=== PATIENT | male | born 1985 | race African-American/Black ===

== ENCOUNTER → 2020-05-13 08:46 | Outpatient (CLI) | payer OTHER, SELFPAY ==
[2020-05-14 09:02] LABS: COVID19 Sendout Not Detected (Not Detect)
== END ==
PROVIDERS: Visit Provider Physician Assistant
DX: Z11.59 Encounter for screening for other viral diseases (principal)
CPT/HCPCS: 87635

== ENCOUNTER 2020-08-04 22:09 | Emergency (ER) | payer SELFPAY ==
[2020-08-04 22:16] VITALS: BP 168/105
[2020-08-04 22:17] VITALS: PULSE 121; RESP 18; O2SAT 99
--- NOTE | 2020-08-04 22:17 | DI.CT.S_ITS ---
PROCEDURE: CT HEAD/BRAIN WO CON INDICATIONS: seizure, with head/face injury TECHNIQUE: Noncontrast 4.5 mm thick angled axial sections acquired from the foramen magnum to the vertex, with coronal and sagittal reformats. For radiation dose reduction, the following was used: automated exposure control, adjustment of mA and/or kV according to patient size. COMPARISON: None. FINDINGS: Image quality: Excellent. CSF spaces: Basal cisterns are patent. No extra-axial fluid collections. Ventricles are normal in size and shape. Brain: No midline shift. No intracranial masses or hemorrhage. Saul-white matter interface is normal. Skull and face: Calvarium and visualized facial bones are intact, without suspicious lesions. Sinuses: Small air-fluid levels noted in the right maxillary sinus and the bilateral sphenoid sinuses. mastoids are clear. IMPRESSION: No acute intracranial disease process. Dictated by: Nichol Alcaraz MD, PhD on 08/05/2020 at 7:24 Approved by: Nichol Alcaraz MD, PhD on 08/05/2020 at 7:26
--- NOTE | 2020-08-04 22:17 | DI.CT.S_ITS ---
PROCEDURE: CT FACIAL BONES WO CON INDICATIONS: seizure with head/facial injury TECHNIQUE: Noncontrast 2.5 mm thick axial images acquired from the mandible through the frontal sinuses, with coronal and sagittal reformatting. For radiation dose reduction, the following was used: automated exposure control, adjustment of mA and/or kV according to patient size. COMPARISON: None. FINDINGS: Image quality: Excellent. Bones and teeth: Orbital miguel are intact. Sinus miguel show no fracture or deformity. Minimally displaced right nasal bone fracture. Nasal septum is intact. Chronic appearing avulsion fracture of the superior margin of the right coronoid process of the mandible. Zygomatic arches are intact. Pterygoid plates are intact. Visualized portions of the skull base and auditory canals are intact. Sinuses: Mucosal thickening noted in the maxillary sinuses bilaterally. Small air-fluid levels noted in the right maxillary sinus and the sphenoid sinuses bilaterally. 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 Mastoid air cells are aerated. Soft tissues: No edema, masses, or fluid collections. No enlarged lymph nodes. No soft tissue lacerations or debris. Vascular: Visualized vascular structures appear normal in the absence of contrast. Bony vascular foramina and canals are intact. IMPRESSION: 1. Minimally displaced right nasal bone fracture. 2. Chronic appearing avulsion fracture of the right coronary process of the mandible. Dictated by: Nichol Alcaraz MD, PhD on 08/05/2020 at 7:45 Approved by: Nichol Alcaraz MD, PhD on 08/05/2020 at 7:49
--- NOTE | 2020-08-04 22:17 | DI.RAD.S_ITS ---
PROCEDURE: XR SHOULDER RT MIN 2V INDICATIONS: seizure, shoulder pain, history of dislocation TECHNIQUE: 3 views of the shoulder were acquired. COMPARISON: None. FINDINGS: Bones: No fractures or dislocations. No suspicious bony lesions. Visualized ribs appear intact. Soft tissues: No suspicious soft tissue calcifications. IMPRESSION: No fracture. No osseous lesion. If symptoms and/or clinical suspicion for pathology persists, further assessment with repeat radiographs (7-10 days) or advanced imaging (e.g. CT, MRI or bone scan) should be considered. Dictated by: Nichol Alcaraz MD, PhD on 08/05/2020 at 8:38 Approved by: Nichol Alcaraz MD, PhD on 08/05/2020 at 8:41
[2020-08-04 22:22] VITALS: BP 168/105; PULSE 110; RESP 16; TEMP 36.6; O2SAT 99; BMI 25.0
--- NOTE | 2020-08-04 22:24 | ED_ITS ---
HPI - Seizure General Chief Complaint: Seizure Stated Complaint: rt Aldo shoulder dislocation Time Seen by Provider: 08/04/20 22:12 Source: patient and EMS Mode of arrival: EMS Limitations: no limitations History of Present Illness HPI Narrative: 35-year-old male daily smoker with remote history of seizures presents by EMS for evaluation of a seizure just prior to arrival. As a consequence of the seizure he fell and struck his face and head on the ground. He has had a mild postictal phase but is largely back at baseline by his arrival. He denies any recent surgeries in quite a few years. He states that he used to take medications but has not and about 15 years or more. He denies any recent illness. He has had no runny nose, sore throat nor fever, chills, nausea or vomiting. He also is having some right shoulder pain after the seizure and is concerned that he may have dislocated it again. He suffered a laceration on his lip in tetanus is not current. MD complaint: seizure Onset (ago): minute(s) Description of Episode: tonic-clonic movement -: second(s) Witnessed: yes - by bystander Trauma: Yes Seizure History: known seizure disorder Place: work Possible Precipitating Event: none Associated symptoms: denies other symptoms Treatments prior to arrival: none Related Data Allergies Allergy/AdvReac Type Severity Reaction Status Date / Time No Known Drug Allergies Allergy Verified 08/05/20 02:03 Review of Systems Constitutional Constitutional: Denies chills, Denies fatigue, Denies fever(s), Denies frequent falls, Denies lethargy and Denies weakness Eyes Eyes: Denies change in vision, Denies eye discharge, Denies irritation and Denies loss of vision ENT Ears, Nose, Mouth, and Throat: Denies change in voice, Denies dizziness, Denies neck pain, Denies sore throat and Denies throat swelling Cardiovascular Cardiovascular: Denies chest pain, Denies irregular heart rhythm, Denies lightheadedness, Denies palpitations, Denies dyspnea, Denies dyspnea on exertion and Denies orthopnea Respiratory Respiratory: Denies cough, Denies dyspnea, Denies dyspnea on exertion and Denies wheezing Gastrointestinal Gastrointestinal: Denies abdominal pain, Denies change in bowel habits, Denies diarrhea, Denies nausea and Denies vomiting Musculoskeletal Musculoskeletal: Denies neck pain and Denies numbness Integumentary/Breasts Skin/Breast: Denies pruritus, Denies erythema, Denies rash and Denies wounds Neurologic Neurologic: Denies behavioral changes, Denies confusion, Denies dizziness, Denies frequent falls, Denies loss of vision, Denies numbness and Denies weakness Psychiatric Psychiatric: Denies anxiety, Denies behavioral changes, Denies confusion, Denies depression, Denies homicidal ideation and Denies suicidal ideation Endocrine Endocrine: Denies fatigue, Denies flushing and Denies palpitations Hematologic/Lymphatic Hematologic/Lymphatic: Denies easy bruising Allergic/Immunologic Allergic/Immunologic: Denies urticaria, Denies throat swelling and Denies wheezing Patient History Social History Smoking Status: Current every day smoker Exam Narrative Exam Narrative: GENERAL: [35] year old patient appears stated age. Well- nourished, well-developed patient, in mild distress. HEAD: Multiple superficial abrasions on forehead and R brow. EYES: Pupils equal round and reactive. Extraocular motions intact. No scleral icterus. No injection or drainage. ENT: Nose without bleeding, though fresh clots in L nare. no nasal septal hematoma, purulent drainage. R TMJ tender to palp. No intraoral bleeding or suspiscion of open fx. Throat without erythema, tonsillar hypertrophy or exudate. Airway patent. Small, 0.3cm laceration of upper lip may be through and through. NECK: Trachea midline. Non tender CARDIOVASCULAR: Regular rate and rhythm without murmurs, gallops, or rubs. RESPIRATORY: Clear to auscultation. Breath sounds equal bilaterally. No wheezes, rales, or rhonchi. GASTROINTESTINAL: Abdomen soft, non-tender, nondistended. EXTREMITIES: No edema or joint tenderness. BACK: Nontender without deformity or crepitance. No flank tenderness. NEURO: AOx3. SKIN: No rash or erythema of visible areas Initial Vital Signs Initial Vital Signs: Vital Signs Blood Pressure 168/105 H 08/04/20 22:16 Course Orders Ordered: ED Orders 08/04/20 22:17 CT facial bones wo con Stat CT head/brain wo con Stat XR shoulder RT min 2V Stat 08/04/20 23:20 Basic Metabolic Panel Stat Complete Blood Count AUTO DIFF Stat Prolactin Stat 08/05/20 00:03 Ethanol (ETOH) Stat 08/05/20 00:32 Lactate (Lactic Acid) Stat Troponin & CK Cardiac Panel Stat 08/05/20 00:35 COVID19 Stat 08/05/20 01:05 Urine Drug Screen, Rapid Stat 08/05/20 02:10 Lactate (Lactic Acid) Stat Discontinued Medications Diphtheria/Tetanus/Acell Pertussis (Tet,Diph,Pertuss(Acell),Vac/Pf 0.5 Ml Syringe) 0.5 ml IM .ONCE ONE Stop: 08/04/20 22:18 Last Admin: 08/04/20 22:45 Dose: 0.5 ml Documented by: PARISH Sodium Chloride (Normal Saline 0.9%) 1,000 mls @ 1,000 mls/hr IV BOLUS ONE Stop: 08/04/20 23:16 Last Infusion: 08/05/20 01:12 Dose: 0 mls/hr Documented by: Admin: 08/04/20 22:45 Dose: 1,000 mls/hr Documented by: PARISH Levetiracetam 1,000 mg/ Sodium (Chloride) 110 mls @ 440 mls/hr IV NOW ONE Stop: 08/04/20 23:54 Last Infusion: 08/05/20 00:19 Dose: 0 mls/hr Documented by: Admin: 08/05/20 00:00 Dose: 440 mls/hr Documented by: PARISH Thiamine HCl 200 mg/ Sodium (Chloride) 52 mls @ 208 mls/hr IV NOW ONE Stop: 08/05/20 00:33 Last Infusion: 08/05/20 01:11 Dose: 0 mls/hr Documented by: Admin: 08/05/20 00:45 Dose: 208 mls/hr Documented by: PARISH Lorazepam (Lorazepam 2 Mg/Ml Inj) 1 mg IM NOW ONE Stop: 08/04/20 23:54 Last Admin: 08/05/20 00:09 Dose: Not Given Documented by: PARISH Phenobarbital (Phenobarbital 65 Mg/Ml Vial) 260 mg IV NOW ONE Stop: 08/05/20 00:33 Last Admin: 08/05/20 00:46 Dose: 260 mg Documented by: PARISH Reevaluation(s) Reevaluation #1: patient started becoming confused and sleepy and just had another seizure. 1 minute, tonic clonic aborted by Ativan. Bryanppra ordered. COVID ordered. Patient has had multiple seizures and will need hospitalization for evaluation and treatment. Time: 23:59 Reevaluation #2: patient girlfriend now at the bedside and states he does have a history of cocaine use as recently about a week ago, but doesn't use other drugs. Furthermore, she talked to some of his friends who state he might have had a seizure about 6 months ago and was acting weird about a week ago and had an abrasion on his chin. She also states that despite his comments earlier that he does drink heavily, including a few shots, a few beers nightly. She states he's never gone through withdrawals and was drinking tonight as well just before his seizure. Patient now admits to drinking heavily and frequently and reports a history of withdrawals and seizures as a consequence of withdrawals. Time: 00:30 Consultations Consultation #1: [place] [place] [facility] of R coronoid / Mandibular notch fx. Not displaced. This is not surgical, recommends soft diet, pain control, follow up, requests chart be faxed to his office so he can follow up tomorrow Time: 23:42 Consultation #2: call to hospitalist. Given unclear history / etiology of seizure we cannot keep patient here as we do not have neurology call to [facility]. No inpatient Neuro call to [place], no beds. call to [place], no beds. call to [facility], no beds. call to , paperwork requested. Neuro ([place]) contacted and happy with the plan and treatments, requests we contact hospitalist. Dr. Silva (hospitalist ) happy to accept. Co-worker Ashley Castillo can be point of contact [phone] Vital Signs Vital signs: Vital Signs - 8 hr 08/04/20 22:16 08/04/20 22:17 08/04/20 22:22 Temperature 97.9 F Pulse Rate 121 H 110 H Respiratory Rate 18 16 Blood Pressure 168/105 H 168/105 H Pulse Oximetry 99 99 08/04/20 22:44 08/04/20 23:00 08/04/20 23:30 Temperature Pulse Rate 91 H 86 77 Respiratory Rate 33 H 19 Blood Pressure 166/104 H Pulse Oximetry 98 96 08/05/20 00:00 08/05/20 00:16 08/05/20 00:30 Temperature Pulse Rate 99 H 100 H 109 H Respiratory Rate 50 H 29 H 34 H Blood Pressure 153/100 H Pulse Oximetry 96 08/05/20 00:31 08/05/20 01:00 08/05/20 01:11 Temperature Pulse Rate 107 H 92 H 89 Respiratory Rate 32 H 21 18 Blood Pressure 155/89 H 181/119 H 154/97 H Pulse Oximetry 97 08/05/20 01:30 Temperature Pulse Rate 93 H Respiratory Rate 21 Blood Pressure 162/105 H Pulse Oximetry 97 MDM - Seizure Lab Data Attestation: I reviewed the patient's lab results. Lab results narrative: initial lactate is recognized as critically elevated, but expected after seizure. Sepsis considered, but thought very unlikely. It should be noted that patient had another 60-90second grand mal seizure prior to the reflexed lactate redraw Result diagrams: 08/04/20 23:20 08/04/20 23:20 Labs: Lab Results 08/04/20 08/04/20 08/04/20 Range/Units 23:20 23:20 23:20 WBC 7.4 (4.5-11.0) X10^3/uL RBC 4.09 L (4.5-5.9) X10^6/uL Hgb 13.4 L (13.5-17.5) g/dL Hct 40.2 L (41-53) % MCV 98.4 (80-100) fL MCH 32.8 (26-34) PG MCHC 33.3 (30-36) % RDW 15.0 H (11.6-14.8) % Plt Count 122 L (150-400) X10^3/uL Neut % (Auto) 81.4 H (50-75) % Lymph % (Auto) 8.3 L (25-40) % [place] % (Auto) 7.6 (3-14) % Eos % (Auto) 0.5 L (2-4) % Baso % (Auto) 2.2 H (0-2) % Neut # (Auto) 6000 (9573-1427) /uL Lymph # (Auto) 600 L (0900-9613) /uL [place] # (Auto) 600 (0-900) /uL Eos # (Auto) 0 (0-450) /uL Baso # (Auto) 200 H (0-100) /uL Plt Morphology Comment * RBC Morphology Normal morphology Sodium 135 L (137-145) mmol/L Potassium 3.8 (3.4-5.1) mmol/L Chloride 104 (98-107) mmol/L Carbon Dioxide 14 L (22-32) mmol/L BUN 9 (9-20) mg/dL Creatinine 0.87 (0.66-1.25) mg/dL Estimated GFR > 60.0 (>60) mL/min BUN/Creatinine Ratio 10.3 (6-22) Glucose 147 H (70-100) mg/dL Lactate (0.7-2.1) mmol/L Calcium 9.9 (8.4-10.2) mg/dL Total Creatine Kinase (55-170) U/L CK-MB (CK-2) (<2.37) ng/mL CK-MB (CK-2) Rel Index (1.5-5.0) % Troponin I (0.01-0.034) ng/mL Prolactin 49.4 H (3.7-17.9) ng/mL U Opiates 300ng/mL cut (Negative) Ur Oxycodone Screen (Negative) Urine Methadone Screen (Negative) Ur Barbiturates Screen (Negative) U Tricyclic Antidepress (Negative) Ur Phencyclidine Scrn (Negative) Ur Amphetamines Screen (Negative) U Methamphetamines Scrn (Negative) Ur MDMA Scrn (Ecstasy) (Negative) U Benzodiazepines Scrn (Negative) Urine Cocaine Screen (Negative) U Marijuana (THC) Screen (Negative) Ethyl Alcohol ( - 10) mg/dL COVID-19 PCR (Negative) 08/04/20 08/04/20 08/04/20 Range/Units 23:20 23:20 23:20 WBC (4.5-11.0) X10^3/uL RBC (4.5-5.9) X10^6/uL Hgb (13.5-17.5) g/dL Hct (41-53) % MCV (80-100) fL MCH (26-34) PG MCHC (30-36) % RDW (11.6-14.8) % Plt Count (150-400) X10^3/uL Neut % (Auto) (50-75) % Lymph % (Auto) (25-40) % [place] % (Auto) (3-14) % Eos % (Auto) (2-4) % Baso % (Auto) (0-2) % Neut # (Auto) (1578-2549) /uL Lymph # (Auto) (3382-5306) /uL [place] # (Auto) (0-900) /uL Eos # (Auto) (0-450) /uL Baso # (Auto) (0-100) /uL Plt Morphology Comment RBC Morphology Sodium (137-145) mmol/L Potassium (3.4-5.1) mmol/L Chloride (98-107) mmol/L Carbon Dioxide (22-32) mmol/L BUN (9-20) mg/dL Creatinine (0.66-1.25) mg/dL Estimated GFR (>60) mL/min BUN/Creatinine Ratio (6-22) Glucose (70-100) mg/dL Lactate 8.1 H* (0.7-2.1) mmol/L Calcium (8.4-10.2) mg/dL Total Creatine Kinase 332 H (55-170) U/L CK-MB (CK-2) 2.47 H (<2.37) ng/mL CK-MB (CK-2) Rel Index 0.7 L (1.5-5.0) % Troponin I < 0.012 (0.01-0.034) ng/mL Prolactin (3.7-17.9) ng/mL U Opiates 300ng/mL cut (Negative) Ur Oxycodone Screen (Negative) Urine Methadone Screen (Negative) Ur Barbiturates Screen (Negative) U Tricyclic Antidepress (Negative) Ur Phencyclidine Scrn (Negative) Ur Amphetamines Screen (Negative) U Methamphetamines Scrn (Negative) Ur MDMA Scrn (Ecstasy) (Negative) U Benzodiazepines Scrn (Negative) Urine Cocaine Screen (Negative) U Marijuana (THC) Screen (Negative) Ethyl Alcohol 26 H ( - 10) mg/dL COVID-19 PCR (Negative) 08/05/20 08/05/20 Range/Units 00:35 01:05 WBC (4.5-11.0) X10^3/uL RBC (4.5-5.9) X10^6/uL Hgb (13.5-17.5) g/dL Hct (41-53) % MCV (80-100) fL MCH (26-34) PG MCHC (30-36) % RDW (11.6-14.8) % Plt Count (150-400) X10^3/uL Neut % (Auto) (50-75) % Lymph % (Auto) (25-40) % [place] % (Auto) (3-14) % Eos % (Auto) (2-4) % Baso % (Auto) (0-2) % Neut # (Auto) (8477-5250) /uL Lymph # (Auto) (1226-2798) /uL [place] # (Auto) (0-900) /uL Eos # (Auto) (0-450) /uL Baso # (Auto) (0-100) /uL Plt Morphology Comment RBC Morphology Sodium (137-145) mmol/L Potassium (3.4-5.1) mmol/L Chloride (98-107) mmol/L Carbon Dioxide (22-32) mmol/L BUN (9-20) mg/dL Creatinine (0.66-1.25) mg/dL Estimated GFR (>60) mL/min BUN/Creatinine Ratio (6-22) Glucose (70-100) mg/dL Lactate (0.7-2.1) mmol/L Calcium (8.4-10.2) mg/dL Total Creatine Kinase (55-170) U/L CK-MB (CK-2) (<2.37) ng/mL CK-MB (CK-2) Rel Index (1.5-5.0) % Troponin I (0.01-0.034) ng/mL Prolactin (3.7-17.9) ng/mL U Opiates 300ng/mL cut Negative (Negative) Ur Oxycodone Screen Negative (Negative) Urine Methadone Screen Negative (Negative) Ur Barbiturates Screen Negative (Negative) U Tricyclic Antidepress Negative (Negative) Ur Phencyclidine Scrn Negative (Negative) Ur Amphetamines Screen Negative (Negative) U Methamphetamines Scrn Negative (Negative) Ur MDMA Scrn (Ecstasy) Negative (Negative) U Benzodiazepines Scrn Negative (Negative) Urine Cocaine Screen Negative (Negative) U Marijuana (THC) Screen Positive H (Negative) Ethyl Alcohol ( - 10) mg/dL COVID-19 PCR Negative (Negative) Point of Care Testing Glucose POC [address] scan - head: Radiologist's Impression: No acute intracranial abnormality CT Facial Bones: Radiologist's Impression: Fracture involving the coronoid process and mandibular notch of the right aspect of the mandible, suspected to be chronic Right nasal bone fracture suspected to be chronic Shoulder: Radiologist's Impression: No fracture or dislocation MDM Narrative Medical decision making narrative: 35M with history of seizures has change in seizure pattern. He reports last seizure was when he was 10 and takes no medications. Further story suggests maybe he's had a few in the past week. He drinks daily and was drinking when this happened by serum etoh is only 0.026. Withdrawal seizure certainly considered, however, he was at baseline between seizures and was without confusion, resting tremor, agitation, tachycardia or other typical signs of alcohol withdrawal. Lab abnormalities are within expected changes post seizure. Patient and friend aware of and in agreement with plan Critical Care Time Critical Care Time Critical Care Time: Yes Total Critical Care Time: 35 Attestation: The high probability of a clinically significant, sudden or life threatening deterioration of the [Neuro] system(s) required my full and direct attention, intervention and personal management. The aggregate critical care time was [35] minutes. This time is in addition to time spent performing reported procedures but includes the following: [x] Data Review and interpretation [xx] Patient assessment and monitoring of vital signs [x] Documentation [x] Medication orders and management Discharge Plan Departure Patient Disposition: [facility] Clinical Impression: Seizure Coronoid process of mandible closed fracture Qualifiers: Encounter type: initial encounter Laterality: right Qualified Code(s): S02.631A - Fracture of coronoid process of right mandible, initial encounter for closed fracture Referrals: Miscellaneous,DoctorMD [Primary Care Provider] -
[2020-08-04 22:44] VITALS: PULSE 91; O2SAT 98
[2020-08-04] MEDS: TET,DIPH,PERTUSS(ACELL),VAC/PF 0.5 ML SYRINGE IM (22:45)
[2020-08-04] MEDS: SODIUM CHLORIDE 0.9% 1,000 ML 1000 ML IV (22:45)
[2020-08-04 23:00] VITALS: PULSE 86; RESP 33
[2020-08-04 23:30] VITALS: BP 166/104; PULSE 77; RESP 19; O2SAT 96
[2020-08-04 23:33] LABS: Basophils Absolute Auto 200 /uL (0-100); Basophils Percent Auto 2.2 % (0-2); Eosinophils Absolute Auto 0 /uL (0-450); Eosinophils Percent Auto 0.5 % (2-4); Hematocrit 40.2 % (41-53); Hemoglobin 13.4 g/dL (13.5-17.5); Lymphocytes Absolute Auto 600 /uL (1100-4500); Lymphocytes Percent Auto 8.3 % (25-40); Mean Corpuscular HGB Conc 33.3 % (30-36); Mean Corpuscular Hemoglobin 32.8 PG (26-34); Mean Corpuscular Volume 98.4 fL (80-100); Monocytes Absolute Auto 600 /uL (0-900); Monocytes Percent Auto 7.6 % (3-14); Neutrophils Absolute Auto 6000 /uL (1500-7000); Neutrophils Percent Auto 81.4 % (50-75); Platelet Count 122 X10^3/uL (150-400); Red Blood Cell Count 4.09 X10^6/uL (4.5-5.9); White Blood Cell Count 7.4 X10^3/uL (4.5-11.0)
[2020-08-04 23:34] LABS: Add Manual Diff / Slide Review SLIDE REVIEW
[2020-08-04 23:36] LABS: BUN Creatinine Ratio 10.3 (6-22); Blood Urea Nitrogen 9 mg/dL (9-20); Calcium 9.9 mg/dL (8.4-10.2); Carbon Dioxide 14 mmol/L (22-32); Chloride 104 mmol/L (98-107); Estimated Glomerular Filt Rate > 60.0 mL/min (>60); Glucose 147 mg/dL (70-100); HEMOLYSIS 24 (0-50); Potassium 3.8 mmol/L (3.4-5.1); Sodium 135 mmol/L (137-145)
[2020-08-04] MEDS: LORazepam 2 MG/ML INJ (23:50)
[2020-08-04 23:52] LABS: Prolactin 49.4 ng/mL (3.7-17.9)
[2020-08-05] VITALS (10 sets, daily range): BP systolic 152–181; BP diastolic 89–119; PULSE 89–119; RESP 18–50; O2SAT 82–98
[2020-08-05] MEDS: levETIRAcetam 1,000 MG in SODIUM CHLORIDE 0.9% 100 ML 440 ML IV
[2020-08-05 00:02] LABS: RBC Morphology Normal Morphology
[2020-08-05 00:15] LABS: Ethanol (ETOH) 26 mg/dL
--- NOTE | 2020-08-05 00:19 | PC.NURSE ---
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 0.3cm LAC to upper lip, multiple abrasions to nose and philtrum area. 20G iV R hand. Pt to and from CT. non displaced old fracture to R septum and cornoid process of R mandible. Arrived awake and alert, BS 125, HR 110. Per pt's girlfriend pt is a heavy drinker and has intermittently tried to quit. 2348: Pt noted to yell loudly and start to have seizure like activity. witnessed and lasted approx 60 sec. ripped out IV in R hand, 2mg ativan given IM in R deltoid. 18G placed R AC, and 20G placed L wrist. incontinent of bladder. Keppra given per OCT. HR 124 BP 153/100. 0041: thiamine infusing. pt given phenobarbital per OCT. awaiting acceptance at .
[2020-08-05] MEDS: THIAMINE 200 MG in SODIUM CHLORIDE 0.9% 50 ML 208 ML IV (00:45)
[2020-08-05 00:46] LABS: Creatine Kinase 332 U/L (55-170)
[2020-08-05] MEDS: PHENobarbital 65 MG/ML VIAL 260 MG IV (00:46)
[2020-08-05 00:49] LABS: Lactate (Lactic Acid) 8.1 mmol/L (0.7-2.1)
[2020-08-05 00:59] LABS: Troponin I < 0.012 ng/mL (0.01-0.034)
[2020-08-05 01:01] LABS: COVID19 -Nasal RAPID Negative (Negative)
[2020-08-05 01:01] LABS: CKMB % Relative Index 0.7 % (1.5-5.0); Creatine Kinase MB 2.47 ng/mL (<2.37)
[2020-08-05 01:21] LABS: UR Morphine/Opiate cutoff 300 Negative (Negative); Ur Creatinine 20 (Normal); Ur Specific Gravity 1.025 (Normal); Urine Amphetamines Negative (Negative); Urine Barbiturates Negative (Negative); Urine Benzodiazepines Negative (Negative); Urine Cocaine Negative (Negative); Urine MDMA Negative (Negative); Urine Methadone Negative (Negative); Urine Methamphetamines Negative (Negative); Urine Oxycodone Negative (Negative); Urine Phencyclidine Negative (Negative); Urine Tetrahydrocannabinol Positive (Negative); Urine Tricyclic Antidepressant Negative (Negative); Urine pH 5 (Normal)
[2020-08-05 02:28] LABS: Lactate (Lactic Acid) 2.3 mmol/L (0.7-2.1)
[2020-08-05 02:35] LABS: Reflexed Lactate in 2 Hours Y
[2020-08-05] MEDS: LORazepam 2 MG/ML INJ IV (02:52)
[2020-08-05] MEDS: diazePAM 10 MG/2 ML SYRINGE 5 MG IV (02:59)
[2020-08-05 04:15] LABS: Reflexed Lactate in 2 Hours Y
--- NOTE | 2020-08-05 11:36 | CM.DPNOTE ---
Addendum entered by EDWARD Zamora 08/05/20 11:37: [facility] P# [phone] Original Note: TC from geriatric social work professor at [facility] asking for available contact information for patient; gave numbers for Ashley Castillo and Alex Cramer, contacts listed on chart. JW
== END 2020-08-05 02:38 | disposition short-term general hospital (02) ==
PROVIDERS: Emergency Provider Emergency Medicine
DX: R56.9 Unspecified convulsions (principal); R56.1 Post traumatic seizures; S02.631A Fracture of coronoid process of right mandible, initial encounter for closed fracture; S00.81XA Abrasion of other part of head, initial encounter; W19.XXXA Unspecified fall, initial encounter; Z20.828 Contact with and (suspected) exposure to other viral communicable diseases; Z87.898 Personal history of other specified conditions
CPT/HCPCS: 36415; 70450; 70486; 73030; 80048; 80305; 80320; 82550; 82553; 83605; 84146; 84484; 85025; 87635; 90471; 96361; 96374; 96375; 99284; 90715; J1953; J2060; J2560; J3360

== ENCOUNTER 2020-09-26 08:37 | Emergency (ER) | payer OTHER, MEDICAID, SELFPAY ==
[2020-09-26] VITALS (10 sets, daily range): BP systolic 143–160; BP diastolic 98–109; PULSE 66–117; RESP 16–32; TEMP 36.7; O2SAT 92–100; BMI 25.7
--- NOTE | 2020-09-26 08:40 | DI.CT.S_ITS ---
PROCEDURE: CT HEAD/BRAIN WO CON INDICATIONS: seizure, head injury, alcohol TECHNIQUE: Noncontrast 4.5 mm thick angled axial sections acquired from the foramen magnum to the vertex, with coronal and sagittal reformats. For radiation dose reduction, the following was used: automated exposure control, adjustment of mA and/or kV according to patient size. COMPARISON: [facility], CT, CT HEAD/BRAIN WO CON, 08/04/2020, 22:25. FINDINGS: Image quality: Motion CSF spaces: Basal cisterns are patent. No extra-axial fluid collections. Ventricles are normal in size and shape. Brain: No midline shift. No intracranial masses or hemorrhage. Saul-white matter interface is normal. Skull and face: Calvarium and visualized facial bones are intact, without suspicious lesions. Sinuses: Visualized sinuses and mastoids are clear. IMPRESSION: Limited study demonstrating no definite, intracranial abnormality. If it would be helpful for clinical management decision making, please consider a dedicated brain MRI for further evaluation (assuming that there is no contraindication and the patient is able to hold still for the MRI examination). Dictated by: Santy Alonzo M.D. on 09/26/2020 at 8:09 Approved by: Santy Alonzo M.D. on 09/26/2020 at 8:11
--- NOTE | 2020-09-26 08:50 | ED_ITS ---
HPI - Seizure General Chief Complaint: Seizure Stated Complaint: Seizure Time Seen by Provider: 09/26/20 08:39 Source: patient and EMS Mode of arrival: EMS Limitations: no limitations History of Present Illness HPI Narrative: 35M daily smoker and heavy drinker with known history of seizure relating to alcohol withdrawal presents with EMS for evaluation of a seizure this morning. His roommate heard a thud and found him to be having a full body seizure for about 1 minute and EMS was called. He suffered a laceration above his right eye and has some left shoulder pain. When EMS arrived he was a bit combative and had a slightly depressed GCS of 14 but by arrival was in his normal alert setting. He was found to be surrounded by alcohol and other marijuana paraphernalia. He states maybe he has been drinking less than normal but isn't terribly forthcoming with his story. He denies other symptoms such as chest pain or shortness of breath. He denies any neck or back pain. He suffered a laceration above his right eye but has no trouble with vision or speech. His left shoulder hurts with motion and improves with rest. He denies any numbness, tingling or weakness. He states he's had no significant change in alcohol consumption, but does admit that he hasn't taken his Keppra in about 2 weeks. Medics state blood glucose is in the 170s complaint: seizure Onset (ago): minute(s) Witnessed: yes - by bystander Trauma: Yes Seizure History: known seizure disorder and history of withdrawal seizures Place: home Possible Precipitating Event: alcohol withdrawal Associated symptoms: denies other symptoms Treatments prior to arrival: none Related Data Previous Rx's Medication Instructions Recorded amlodipine 5 mg PO DAILY #30 tab 09/26/20 levetiracetam [Keppra] 1,000 mg PO Q12H 30 Days #120 tab 09/26/20 lisinopril 10 mg PO DAILY #30 tab 09/26/20 Allergies Allergy/AdvReac Type Severity Reaction Status Date / Time No Known Drug Allergies Allergy Verified 09/26/20 11:03 Review of Systems Constitutional Constitutional: Denies chills, Denies fatigue, Denies fever(s), Denies frequent falls, Denies lethargy and Denies weakness Eyes Eyes: Denies change in vision, Denies eye discharge, Denies irritation and Denies loss of vision ENT Ears, Nose, Mouth, and Throat: Denies change in voice, Denies dizziness, Denies neck pain, Denies sore throat and Denies throat swelling Cardiovascular Cardiovascular: Denies chest pain, Denies irregular heart rhythm, Denies lightheadedness, Denies palpitations, Denies dyspnea, Denies dyspnea on exertion and Denies orthopnea Respiratory Respiratory: Denies cough, Denies dyspnea, Denies dyspnea on exertion and Denies wheezing Gastrointestinal Gastrointestinal: Denies abdominal pain, Denies change in bowel habits, Denies diarrhea, Denies nausea and Denies vomiting Musculoskeletal Musculoskeletal: Denies neck pain and Denies numbness Integumentary/Breasts Skin/Breast: Denies pruritus, Denies erythema, Denies rash and Reports wounds Neurologic Neurologic: Denies behavioral changes, Denies confusion, Denies dizziness, Denies frequent falls, Denies loss of vision, Denies numbness, Reports seizure- like activity and Denies weakness Psychiatric Psychiatric: Denies anxiety, Denies behavioral changes, Denies confusion, Denies depression, Denies homicidal ideation and Denies suicidal ideation Endocrine Endocrine: Denies fatigue, Denies flushing and Denies palpitations Hematologic/Lymphatic Hematologic/Lymphatic: Denies easy bruising Allergic/Immunologic Allergic/Immunologic: Denies urticaria, Denies throat swelling and Denies wheezing Patient History Social History Smoking Status: Current every day smoker Smoking Status: Current every day smoker Alcohol type: hard liquor Substance Use Type: does not use Exam Narrative Exam Narrative: GENERAL: [35] year old patient appears stated age. Well- nourished, well-developed patient, in mild distress. GCS 15. Large amount of dried blood on his face HEAD: 2 cm laceration above right eye, bleeding controlled, will need sutures. No evidence of depressed skull fracture. EYES: Pupils equal round and reactive. No hyphema Extraocular motions intact. No scleral icterus. No injection or drainage. ENT: Nose without bleeding, purulent drainage. No hemotympanum or nasal septal hematoma Throat without erythema, tonsillar hypertrophy or exudate. Airway patent. NECK: Trachea midline. Non tender CARDIOVASCULAR: Regular rate and rhythm without murmurs, gallops, or rubs. RESPIRATORY: Clear to auscultation. Breath sounds equal bilaterally. No wheezes, rales, or rhonchi. GASTROINTESTINAL: Abdomen soft, non-tender, nondistended. EXTREMITIES: No edema or joint tenderness. BACK: Nontender without deformity or crepitance. No flank tenderness. NEURO: AOx3. SKIN: No rash or erythema of visible areas Initial Vital Signs Initial Vital Signs: Vital Signs Temperature 98.1 F 09/26/20 08:41 Pulse Rate 117 H 09/26/20 08:41 Respiratory Rate 16 09/26/20 08:41 Blood Pressure 160/102 H 09/26/20 08:41 Pulse Oximetry 98 09/26/20 08:41 Procedures Laceration Repair Laceration 1: Site: face Side (If applicable): right Size (cm): 2 Description: linear Depth: simple, single layer Local Anesthetic: lidocaine 1% and with epi Amount of anesthesia used (mL): 3 Pre-repair: wound explored Skin layer closed with: nylon Size (cm): 6-0 Number of sutures: 3 Technique: simple, interrupted Course Orders Ordered: Discontinued Medications Amlodipine Besylate (Amlodipine 5 Mg Tablet) 5 mg PO NOW ONE Stop: 09/26/20 11:16 Last Admin: 09/26/20 11:46 Dose: 5 mg Documented by: LINDY Sodium Chloride (Normal Saline 0.9%) 1,000 mls @ 125 mls/hr IV CONT KIRIT Last Infusion: 09/26/20 12:00 Dose: 0 mls/hr Documented by: Admin: 09/26/20 09:04 Dose: 125 mls/hr Documented by: PARISH Thiamine HCl 200 mg/ Sodium (Chloride) 52 mls @ 208 mls/hr IV NOW ONE Stop: 09/26/20 08:40 Last Infusion: 09/26/20 09:36 Dose: 0 mls/hr Documented by: Admin: 09/26/20 09:04 Dose: 208 mls/hr Documented by: PARISH Levetiracetam 1,000 mg/ Sodium (Chloride) 110 mls @ 440 mls/hr IV NOW ONE Stop: 09/26/20 11:03 Last Infusion: 09/26/20 11:30 Dose: 0 mls/hr Documented by: Admin: 09/26/20 11:11 Dose: 440 mls/hr Documented by: LINDY Lidocaine/Epinephrine (Lidocaine 1% W/Epi) 1 ml SUBCUT NOW ONE Stop: 09/26/20 08:40 Last Admin: 09/26/20 09:03 Dose: 1 ml Documented by: PARISH Lisinopril (Lisinopril 10 Mg Tablet) 10 mg PO NOW ONE Stop: 09/26/20 11:16 Last Admin: 09/26/20 11:47 Dose: 10 mg Documented by: LINDY Lorazepam (Lorazepam 2 Mg/Ml Inj) 2 mg IV NOW ONE Stop: 09/26/20 08:40 Last Admin: 09/26/20 09:04 Dose: 2 mg Documented by: PARISH Ondansetron HCl (Ondansetron 4 Mg/2 Ml Inj) 4 mg IV NOW ONE Stop: 09/26/20 08:40 Last Admin: 09/26/20 09:04 Dose: 4 mg Documented by: PARISH Reevaluation(s) Reevaluation #1: patient continues to be awake, alert and oriented. No evidence of Etoh withdrawal. Patient states he just never got around to refilling his medications, he now understands why that is important Vital Signs Vital signs: Vital Signs - 8 hr 09/26/20 08:41 09/26/20 09:01 09/26/20 09:30 Temperature 98.1 F Pulse Rate 117 H 87 80 Respiratory Rate 16 32 H 25 H Blood Pressure 160/102 H Pulse Oximetry 98 99 92 09/26/20 10:00 09/26/20 10:18 09/26/20 10:19 Temperature Pulse Rate 68 86 70 Respiratory Rate 21 24 22 Blood Pressure 151/109 H 151/109 H Pulse Oximetry 99 99 100 09/26/20 10:30 09/26/20 11:00 09/26/20 11:30 Temperature Pulse Rate 70 66 67 Respiratory Rate 21 28 H 25 H Blood Pressure 159/106 H 143/98 H Pulse Oximetry 100 100 98 09/26/20 11:47 Temperature Pulse Rate 72 Respiratory Rate Blood Pressure 143/98 H Pulse Oximetry MDM - Seizure Lab Data Result diagrams: 09/26/20 08:43 09/26/20 08:43 Labs: Lab Results 09/26/20 09/26/20 09/26/20 Range/Units 08:43 08:43 08:43 WBC 9.1 (4.5-11.0) X10^3/uL RBC 4.34 L (4.5-5.9) X10^6/uL Hgb 13.8 (13.5-17.5) g/dL Hct 41.7 (41-53) % MCV 96.2 (80-100) fL MCH 31.9 (26-34) PG MCHC 33.1 (30-36) % RDW 13.6 (11.6-14.8) % Plt Count 256 (150-400) X10^3/uL Neut % (Auto) 50.3 (50-75) % Lymph % (Auto) 39.5 (25-40) % [place] % (Auto) 8.4 (3-14) % Eos % (Auto) 1.3 L (2-4) % Baso % (Auto) 0.5 (0-2) % Neut # (Auto) 4600 (3917-6937) /uL Lymph # (Auto) 3600 (8900-7285) /uL [place] # (Auto) 800 (0-900) /uL Eos # (Auto) 100 (0-450) /uL Baso # (Auto) 0 (0-100) /uL Sodium 138 (137-145) mmol/L Potassium 3.8 (3.4-5.1) mmol/L Chloride 105 (98-107) mmol/L Carbon Dioxide 12 L (22-32) mmol/L BUN 8 L (9-20) mg/dL Creatinine 0.95 (0.66-1.25) mg/dL Estimated GFR > 60.0 (>60) mL/min BUN/Creatinine Ratio 8.4 (6-22) Glucose 178 H (70-100) mg/dL Calcium 9.8 (8.4-10.2) mg/dL Magnesium 2.4 H (1.6-2.3) mg/dL Total Bilirubin 0.5 (0.2-1.3) mg/dL AST 51 (17-59) IU/L ALT 31 (<50) IU/L Alkaline Phosphatase 101 (38-126) U/L Total Protein 8.3 H (6.3-8.2) g/dL Albumin 4.6 (3.5-5.0) g/dL Globulin 3.7 (1.7-4.1) g/dL Albumin/Globulin Ratio 1.2 (1.0-2.8) Ethyl Alcohol < 10 ( - 10) mg/dL SARS-CoV-2 (PCR) (Negative) 09/26/20 Range/Units 10:10 WBC (4.5-11.0) X10^3/uL RBC (4.5-5.9) X10^6/uL Hgb (13.5-17.5) g/dL Hct (41-53) % MCV (80-100) fL MCH (26-34) PG MCHC (30-36) % RDW (11.6-14.8) % Plt Count (150-400) X10^3/uL Neut % (Auto) (50-75) % Lymph % (Auto) (25-40) % [place] % (Auto) (3-14) % Eos % (Auto) (2-4) % Baso % (Auto) (0-2) % Neut # (Auto) (9364-4983) /uL Lymph # (Auto) (4621-7587) /uL [place] # (Auto) (0-900) /uL Eos # (Auto) (0-450) /uL Baso # (Auto) (0-100) /uL Sodium (137-145) mmol/L Potassium (3.4-5.1) mmol/L Chloride (98-107) mmol/L Carbon Dioxide (22-32) mmol/L BUN (9-20) mg/dL Creatinine (0.66-1.25) mg/dL Estimated GFR (>60) mL/min BUN/Creatinine Ratio (6-22) Glucose (70-100) mg/dL Calcium (8.4-10.2) mg/dL Magnesium (1.6-2.3) mg/dL Total Bilirubin (0.2-1.3) mg/dL AST (17-59) IU/L ALT (<50) IU/L Alkaline Phosphatase (38-126) U/L Total Protein (6.3-8.2) g/dL Albumin (3.5-5.0) g/dL Globulin (1.7-4.1) g/dL Albumin/Globulin Ratio (1.0-2.8) Ethyl Alcohol ( - 10) mg/dL SARS-CoV-2 (PCR) Negative (Negative) Point of Care Testing Glucose POC [address] scan - head: Radiologist's Impression: Cong Luther 35 M [address] [id number] Scan ReportSigned Patient: Cong Luther WMR#: [id number]: 1985Acct:[id number]/Sex: 35 / MDate of Service: 09/26/20Loc: EDAccession Number: [id number] Procedure: CT head/brain wo con Ordering Provider: Sushant Naranjo D.O. PROCEDURE: CT HEAD/BRAIN WO CON INDICATIONS: seizure, head injury, alcohol TECHNIQUE: Noncontrast 4.5 mm thick angled axial sections acquired from the foramen magnum to the vertex, with coronal and sagittal reformats. For radiation dose reduction, the following was used: automated exposure control, adjustment of mA and/or kV according to patient size. COMPARISON: [facility], CT, CT HEAD/BRAIN WO CON, 08/04/2020, 22:25. FINDINGS: Image quality: Motion CSF spaces: Basal cisterns are patent. No extra-axial fluid collections. Ventricles are normal in size and shape. Brain: No midline shift. No intracranial masses or hemorrhage. Saul-white matter interface is normal. Skull and face: Calvarium and visualized facial bones are intact, without mejia spicious lesions. Sinuses: Visualized sinuses and mastoids are clear. IMPRESSION: Limited study demonstrating no definite, intracranial abnormality. If it would be helpful for clinical management decision making, please consider a dedicated brain MRI for further evaluation (assuming that there is no contraindication and the patient is able to hold still for the MRI examination). Dictated by: Santy Alonzo M.D. on 09/26/2020 at 8:09 Approved by: Santy Alonzo M.D. on 09/26/2020 at 8:11 MDM Narrative Medical decision making narrative: Patient with seizure activity, known to have underlying seizure disorder and has been medically noncompliant for least a few weeks. Alcohol withdrawal considered but patient not demonstrating any other signs of alcohol withdrawal and states he has had no change in his consumption, that he has been decreased for quite some time. Return precautions given, q uestions answered to his apparent satisfaction Discharge Plan Departure Patient Disposition: Home Clinical Impression: Epileptic seizure Qualifiers: Epilepsy type: unspecified Intractability: not intractable Status epilepticus: without status epilepticus Qualified Code(s): G40.909 - Epilepsy, unspecified, not intractable, without status epilepticus Instructions: DI for Seizure Disorder -- Adult Activity Restrictions/Additional Instructions: *You have been diagnosed with [seizure due to medical noncompliance, facial laceration and shoulder strain] *What to do: *Take medications as directed, we called pharmacy to confirm you have refills waiting, we've also printed prescriptions for 30 day supply of each. *Follow up with your primary care provider in 5-7 days, call for an appointment. Let them know you were seen in the Emergency Department and that we ask that you be seen in follow up for suture removal. *Return to ER if you should have any new, worsening or concerning symptoms Prescriptions: Continued levetiracetam [Keppra] 500 mg Tablet 1,000 mg PO Q12H 30 Days Qty: 120 RF: 0 amlodipine 5 mg Tablet 5 mg PO DAILY Qty: 30 RF: 0 lisinopril 10 mg Tablet 10 mg PO DAILY Qty: 30 RF: 0 Discontinued chlordiazepoxide 25 mg Tablet 25 mg PO DAILY RF: 0 Referrals: [facility] Resources [Outside] Miscellaneous,Doctor, [Primary Care Provider] -
--- NOTE | 2020-09-26 08:51 | PC.NURSE ---
pt with known ETOH W/D with h/o seizures in the past. Per EMS was at home and downstairs neighbors heard him fall, found him seizing x 45 seconds, hit head and arrives with dried blood all over face and hands. mild confusion. states he has been trying to cut back on alcohol consumption. denies head or neck pain. c/o L shoulder pain.
[2020-09-26] MEDS: LIDOCAINE 1% W/EPI 1 ML SUBCUT (09:03)
[2020-09-26] MEDS: SODIUM CHLORIDE 0.9% 1,000 ML 125 ML IV (09:04)
[2020-09-26] MEDS: ONDANSETRON 4 MG/2 ML INJ IV (09:04)
[2020-09-26] MEDS: THIAMINE 200 MG in SODIUM CHLORIDE 0.9% 50 ML 208 ML IV (09:04)
[2020-09-26] MEDS: LORazepam 2 MG/ML INJ IV (09:04)
[2020-09-26 09:29] LABS: Albumin 4.6 g/dL (3.5-5.0); Albumin Globulin Ratio 1.2 (1.0-2.8); Alkaline Phosphatase 101 U/L (38-126); Aspartate Aminotransferase 51 IU/L (17-59); BUN Creatinine Ratio 8.4 (6-22); Bilirubin Total 0.5 mg/dL (0.2-1.3); Blood Urea Nitrogen 8 mg/dL (9-20); Calcium 9.8 mg/dL (8.4-10.2); Carbon Dioxide 12 mmol/L (22-32); Chloride 105 mmol/L (98-107); Estimated Glomerular Filt Rate > 60.0 mL/min (>60); Globulin 3.7 g/dL (1.7-4.1); Glucose 178 mg/dL (70-100); HEMOLYSIS < 15 (0-50); Magnesium 2.4 mg/dL (1.6-2.3); Potassium 3.8 mmol/L (3.4-5.1); Sodium 138 mmol/L (137-145); Total Protein 8.3 g/dL (6.3-8.2)
[2020-09-26 09:30] LABS: Ethanol (ETOH) < 10 mg/dL
[2020-09-26 09:36] LABS: Alanine Aminotransferase 31 IU/L (<50)
[2020-09-26 09:37] LABS: Add Manual Diff / Slide Review NO; Basophils Absolute Auto 0 /uL (0-100); Basophils Percent Auto 0.5 % (0-2); Eosinophils Absolute Auto 100 /uL (0-450); Eosinophils Percent Auto 1.3 % (2-4); Hematocrit 41.7 % (41-53); Hemoglobin 13.8 g/dL (13.5-17.5); Lymphocytes Absolute Auto 3600 /uL (1100-4500); Lymphocytes Percent Auto 39.5 % (25-40); Mean Corpuscular HGB Conc 33.1 % (30-36); Mean Corpuscular Hemoglobin 31.9 PG (26-34); Mean Corpuscular Volume 96.2 fL (80-100); Monocytes Absolute Auto 800 /uL (0-900); Monocytes Percent Auto 8.4 % (3-14); Neutrophils Absolute Auto 4600 /uL (1500-7000); Neutrophils Percent Auto 50.3 % (50-75); Platelet Count 256 X10^3/uL (150-400); Red Blood Cell Count 4.34 X10^6/uL (4.5-5.9); Red Cell Distribution Width 13.6 % (11.6-14.8); White Blood Cell Count 9.1 X10^3/uL (4.5-11.0)
[2020-09-26 10:36] LABS: COVID19 -Nasal RAPID Negative (Negative)
[2020-09-26] MEDS: levETIRAcetam 1,000 MG in SODIUM CHLORIDE 0.9% 100 ML 440 ML IV (11:11)
--- NOTE | 2020-09-26 11:29 | DI.RAD.S_ITS ---
PROCEDURE: XR SHOULDER LT MIN 2V INDICATIONS: pain since seizure TECHNIQUE: 3 views of the shoulder were acquired. COMPARISON: [facility], CR, XR SHOULDER RT MIN 2V, 08/04/2020, 22:40. FINDINGS: Bones: No fractures or dislocations. No suspicious bony lesions. Visualized ribs appear intact. Soft tissues: No suspicious soft tissue calcifications. IMPRESSION: Normal left shoulder plain films. If there is strong clinical suspicion for internal derangement of the shoulder, please consider a dedicated MRI for further evaluation (assuming that there is no contraindication to MRI). Dictated by: Santy Alonzo M.D. on 09/26/2020 at 10:53 Approved by: Santy Alonzo M.D. on 09/26/2020 at 10:54
[2020-09-26] MEDS: AMLODIPINE 5 MG TABLET PO (11:46)
[2020-09-26] MEDS: lisinopriL 10 MG TABLET PO (11:47)
--- NOTE | 2020-09-26 11:54 | PC.NURSE ---
Called Nancy to ensure pt had refills on his medications. Confirmed refills available and will be refilled for him this afternoon.
== END 2020-09-26 12:07 | disposition home or self-care (01) ==
PROVIDERS: Emergency Provider Emergency Medicine
DX: G40.909 Epilepsy, unspecified, not intractable, without status epilepticus (principal); S01.111A Laceration without foreign body of right eyelid and periocular area, initial encounter; S09.90XA Unspecified injury of head, initial encounter; M25.512 Pain in left shoulder; Z20.822 Contact with and (suspected) exposure to COVID-19
CPT/HCPCS: 12011; 36415; 70450; 73030; 80053; 80320; 83735; 85025; 87635; 93005; 93010; 96361; 96365; 96375; 99284; C9803; J1953; J2060; J2405

== ENCOUNTER 2020-11-07 20:48 | Emergency (ER) | payer OTHER, MEDICAID, SELFPAY ==
[2020-11-07] VITALS (8 sets, daily range): BP systolic 142–165; BP diastolic 95–113; PULSE 60–89; RESP 15–23; O2SAT 97–100; BMI 25.7
--- NOTE | 2020-11-07 21:37 | ED_ITS ---
HPI - Seizure General Chief Complaint: Seizure Stated Complaint: seizures Time Seen by Provider: 11/07/20 21:37 Mode of arrival: Ambulatory History of Present Illness HPI Narrative: 35-year-old gentleman with a history of seizures and hypertension who currently is out of medications. He has recently moved to the area and does not have a primary care physician. His roommate reports that he has had 4 seizures since July. He had 1 today and has a headache at this point. Does not feel that he hurt himself and has no recollection of falling and there was n o reports of hitting his head. He currently has a headache complains of pain in his shoulders, some bruising on the right elbow but feels that he is back to his baseline. Related Data Previous Rx's Medication Instructions Recorded amlodipine 5 mg PO DAILY #30 tab 09/26/20 levetiracetam [Keppra] 1,000 mg PO Q12H 30 Days #120 tab 09/26/20 lisinopril 10 mg PO DAILY #30 tab 09/26/20 amlodipine 5 mg PO DAILY #90 tab 11/08/20 levetiracetam 1,000 mg PO BID #180 tab 11/08/20 lisinopril 10 mg PO BID #90 tab 11/08/20 Allergies Allergy/AdvReac Type Severity Reaction Status Date / Time No Known Drug Allergies Allergy Verified 09/26/20 11:03 Review of Systems Review of Systems Narrative: Pertinent positive and negative findings as per HPI Remainder of review of systems is otherwise unremarkable for Constitutional: Fevers, chills, weakness ENT: No sore throat, neck pain, ear pain CV: Chest pain, palpitations, dyspnea on exertion Respiratory: Cough, wheeze, dyspnea GI: Nausea, vomiting, diarrhea, change in bowel habits, black or bloody stools : Dysuria, hematuria, flank pain Patient History Medical History Hypertension Seizures Social History Smoking Status: Current every day smoker Smoking Status: Current every day smoker Alcohol type: hard liquor Substance Use Type: marijuana Exam Narrative Exam Narrative: General: Healthy appearing, in no acute distress. Smells strongly of marijuana. Able to give a complete and coherent history. Well- nourished well-developed HEENT: Moist mucous membranes, normal sclera with reactive pupils, small laceration to the side of the tongue Neck: No JVD, supple Respiratory: Lungs are clear to auscultation, no wheezing no rales no rhonchi. Full and symmetrical air movement Cardiac: Regular rate and rhythm no murmurs no bruits Abdomen: Soft, nontender, good bowel tones, no flank pain Skin: Warm and dry, no rashes Neurologic: Grossly neurologically intact with no obvious asymmetries or abnormalities Extremities: No trauma, well perfused Psych: Cooperative, appropriate insight and affect Initial Vital Signs Initial Vital Signs: Vital Signs Pulse Rate 60 11/07/20 21:05 Respiratory Rate 16 11/07/20 21:05 Blood Pressure 144/100 H 11/07/20 21:05 Pulse Oximetry 98 11/07/20 21:05 Course Orders Ordered: ED Orders 11/07/20 21:12 EKG-12 Lead Routine 11/07/20 21:50 Complete Blood Count AUTO DIFF Stat Comprehensive Metabolic Panel Stat Ethanol (ETOH) Stat Discontinued Medications Alcohol (Alcohol 1 Each Each) 1 each PO NOW ONE Stop: 11/07/20 21:39 Last Admin: 11/07/20 21:56 Dose: Not Given Documented by: JOHN Amlodipine Besylate (Amlodipine 5 Mg Tablet) 5 mg PO NOW ONE Stop: 11/07/20 21:39 Last Admin: 11/07/20 22:12 Dose: 5 mg Documented by: ELDON Sodium Chloride (Normal Saline 0.9%) 1,000 mls @ 1,000 mls/hr IV BOLUS ONE Stop: 11/07/20 22:37 Last Infusion: 11/07/20 23:38 Dose: 0 mls/hr Documented by: Admin: 11/07/20 22:21 Dose: 1,000 mls/hr Documented by: ELDON Levetiracetam 1,500 mg/ Sodium (Chloride) 115 mls @ 460 mls/hr IV NOW ONE Stop: 11/07/20 21:39 Last Infusion: 11/07/20 22:35 Dose: 0 mls/hr Documented by: Admin: 11/07/20 22:11 Dose: 460 mls/hr Documented by: ELDON Ketorolac Tromethamine (Ketorolac 60 Mg/2 Ml Vial) 15 mg IV NOW ONE Stop: 11/08/20 03:25 Lisinopril (Lisinopril 20 Mg Tablet) 20 mg PO NOW ONE Stop: 11/07/20 21:39 Last Admin: 11/07/20 22:34 Dose: 20 mg Documented by: ELDON Thiamine HCl (Thiamine 200 Mg/2 Ml Vial) 100 mg IV NOW ONE Stop: 11/07/20 21:39 Last Admin: 11/07/20 22:12 Dose: 100 mg Documented by: ELDON Vital Signs Vital signs: Vital Signs - 8 hr 11/07/20 21:05 11/07/20 21:25 11/07/20 21:30 Pulse Rate 60 72 70 Respiratory Rate 16 16 18 Blood Pressure 144/100 H 165/113 H 160/102 H Pulse Oximetry 98 100 99 11/07/20 22:00 11/07/20 22:30 11/07/20 22:34 Pulse Rate 66 68 89 Respiratory Rate 15 20 Blood Pressure 152/100 H 143/103 H 143/103 H Pulse Oximetry 98 100 11/07/20 23:00 11/07/20 23:30 11/08/20 00:00 Pulse Rate 71 70 72 Respiratory Rate 23 19 22 Blood Pressure 142/95 H 146/95 H 142/99 H Pulse Oximetry 99 97 97 11/08/20 00:30 Pulse Rate 56 L Respiratory Rate 20 Blood Pressure 134/88 Pulse Oximetry 97 MDM - Seizure Medical Records Attestation: I reviewed the patient's medical records. Lab Data Attestation: I reviewed the patient's lab results. Result diagrams: 11/07/20 21:50 11/07/20 21:50 Labs: Lab Results 11/07/20 11/07/20 11/07/20 Range/Units 21:50 21:50 21:50 WBC 12.0 H (4.5-11.0) X10^3/uL RBC 4.47 L (4.5-5.9) X10^6/uL Hgb 13.7 (13.5-17.5) g/dL Hct 41.7 (41-53) % MCV 93.4 (80-100) fL MCH 30.8 (26-34) PG MCHC 32.9 (30-36) % RDW 13.6 (11.6-14.8) % Plt Count 189 (150-400) X10^3/uL Neut % (Auto) 83.5 H (50-75) % Lymph % (Auto) 8.7 L (25-40) % [place] % (Auto) 7.5 (3-14) % Eos % (Auto) 0.0 L (2-4) % Baso % (Auto) 0.3 (0-2) % Neut # (Auto) 12403 H (2237-1025) /uL Lymph # (Auto) 1000 L (4659-3194) /uL [place] # (Auto) 900 (0-900) /uL Eos # (Auto) 0 (0-450) /uL Baso # (Auto) 0 (0-100) /uL Sodium 137 (137-145) mmol/L Potassium 3.7 (3.4-5.1) mmol/L Chloride 101 (98-107) mmol/L Carbon Dioxide 25 (22-32) mmol/L BUN 10 (9-20) mg/dL Creatinine 0.93 (0.66-1.25) mg/dL Estimated GFR > 60.0 (>60) mL/min BUN/Creatinine Ratio 10.8 (6-22) Glucose 123 H (70-100) mg/dL Calcium 9.7 (8.4-10.2) mg/dL Total Bilirubin 0.7 (0.2-1.3) mg/dL AST 56 (17-59) IU/L ALT 30 (<50) IU/L Alkaline Phosphatase 86 (38-126) U/L Total Protein 8.4 H (6.3-8.2) g/dL Albumin 4.6 (3.5-5.0) g/dL Globulin 3.8 (1.7-4.1) g/dL Albumin/Globulin Ratio 1.2 (1.0-2.8) Ethyl Alcohol < 10 ( - 10) mg/dL ECG Data Attestation: I personally reviewed and interpreted this ECG as follows: Interpretation: Sinus rhythm at a rate of 71 First degree block, normal axis No acute ischemic changes MDM Narrative Medical decision making narrative: 35-year-old gentleman with history of seizure disorder since the age of 7. Notes that he routinely has a beer after work. We talked about alcohol and how it lowers seizure threshold. He is more than willing to restart his Keppra and blood pressure medications simply needs the medications filled. He would also appreciate help in finding a primary care physician in [place]. There is no evidence of stroke, infection, intracranial hemorrhage or significant trauma to complicate his seizure today. He is loaded on Keppra, Toradol to treat his headache and oral amlodipine and lisinopril to lower his blood pressure and at this point he is safe for discharge home. Discharge Plan Departure Patient Disposition: Home Clinical Impression: Seizures Hypertension Qualifiers: Hypertension type: essential hypertension Qualified Code(s): I10 - Essential (primary) hypertension Instructions: DI for Seizure Disorder -- Adult, DI for High Blood Pressure Activity Restrictions/Additional Instructions: Thank you for coming in today Your blood work was very reassuring. I gave you your doses of blood pressure medication this evening in your blood pressures come down nicely. I did give you a dose of IV Keppra to get the level back up to where it should be and I will give you prescription for all of these medications to continue. Please contact our health vice president of human resources at [phone] to see if they are able to help you find a primary care physician in the community to help refill your medications. Please consider not drinking alcohol as this does lower your seizure threshold makes it much more likely that you will have seizures. If you have any new or recurrent symptoms, please feel free to return to the emergency department Prescriptions: New amlodipine 5 mg tablet 5 mg PO DAILY Qty: 90 RF: 0 lisinopril 10 mg tablet 10 mg PO BID Qty: 90 RF: 0 levetiracetam 500 mg tablet 1,000 mg PO BID Qty: 180 RF: 0 No Action levetiracetam [Keppra] 500 mg Tablet 1,000 mg PO Q12H 30 Days Qty: 120 RF: 0 amlodipine 5 mg Tablet 5 mg PO DAILY Qty: 30 RF: 0 lisinopril 10 mg Tablet 10 mg PO DAILY Qty: 30 RF: 0 Referrals: Miscellaneous,Doctor, MD [Primary Care Provider] -
[2020-11-07 22:01] LABS: Add Manual Diff / Slide Review NO; Basophils Absolute Auto 0 /uL (0-100); Basophils Percent Auto 0.3 % (0-2); Eosinophils Absolute Auto 0 /uL (0-450); Hematocrit 41.7 % (41-53); Hemoglobin 13.7 g/dL (13.5-17.5); Lymphocytes Absolute Auto 1000 /uL (1100-4500); Lymphocytes Percent Auto 8.7 % (25-40); Mean Corpuscular HGB Conc 32.9 % (30-36); Mean Corpuscular Hemoglobin 30.8 PG (26-34); Mean Corpuscular Volume 93.4 fL (80-100); Monocytes Absolute Auto 900 /uL (0-900); Monocytes Percent Auto 7.5 % (3-14); Neutrophils Absolute Auto 10000 /uL (1500-7000); Neutrophils Percent Auto 83.5 % (50-75); Platelet Count 189 X10^3/uL (150-400); Red Blood Cell Count 4.47 X10^6/uL (4.5-5.9); Red Cell Distribution Width 13.6 % (11.6-14.8)
[2020-11-07 22:10] LABS: Ethanol (ETOH) < 10 mg/dL
[2020-11-07] MEDS: levETIRAcetam 1,500 MG in SODIUM CHLORIDE 0.9% 100 ML 460 ML IV (22:11)
[2020-11-07] MEDS: THIAMINE 200 MG/2 ML VIAL 100 MG IV (22:12)
[2020-11-07] MEDS: AMLODIPINE 5 MG TABLET PO (22:12)
[2020-11-07 22:14] LABS: Alanine Aminotransferase 30 IU/L (<50); Albumin 4.6 g/dL (3.5-5.0); Albumin Globulin Ratio 1.2 (1.0-2.8); Alkaline Phosphatase 86 U/L (38-126); Aspartate Aminotransferase 56 IU/L (17-59); BUN Creatinine Ratio 10.8 (6-22); Bilirubin Total 0.7 mg/dL (0.2-1.3); Blood Urea Nitrogen 10 mg/dL (9-20); Calcium 9.7 mg/dL (8.4-10.2); Carbon Dioxide 25 mmol/L (22-32); Chloride 101 mmol/L (98-107); Estimated Glomerular Filt Rate > 60.0 mL/min (>60); Globulin 3.8 g/dL (1.7-4.1); Glucose 123 mg/dL (70-100); HEMOLYSIS 45 (0-50); Potassium 3.7 mmol/L (3.4-5.1); Sodium 137 mmol/L (137-145); Total Protein 8.4 g/dL (6.3-8.2)
[2020-11-07] MEDS: SODIUM CHLORIDE 0.9% 1,000 ML 1000 ML IV (22:21)
[2020-11-07] MEDS: lisinopriL 20 MG TABLET PO (22:34)
[2020-11-08] VITALS (9 sets, daily range): BP systolic 124–142; BP diastolic 73–99; PULSE 51–72; RESP 15–30; TEMP 37.5; O2SAT 97–100
[2020-11-08] MEDS: KETOROLAC 60 MG/2 ML VIAL 15 MG IV (03:46)
== END 2020-11-08 03:57 | disposition home or self-care (01) ==
PROVIDERS: Emergency Provider Emergency Medicine
DX: I10 Essential (primary) hypertension (principal); R56.9 Unspecified convulsions
CPT/HCPCS: 36415; 80053; 80320; 85025; 93005; 96365; 96375; 99284; J1885; J1953

== ENCOUNTER 2020-12-31 23:24 | Emergency (ER) | payer OTHER, MEDICAID, SELFPAY ==
[2020-12-31 23:27] VITALS: PULSE 109; O2SAT 98
[2020-12-31 23:30] VITALS: BP 136/98; PULSE 70; PULSE 96; RESP 18; TEMP 36.6; O2SAT 94; O2SAT 99; BMI 27.6
--- NOTE | 2020-12-31 23:34 | ED_ITS ---
HPI - General Adult General Chief complaint: Seizure Stated complaint: Seizures Time Seen by Provider: 12/31/20 23:31 Source: patient Mode of arrival: EMS Limitations: no limitations History of Present Illness HPI narrative: Patient is a 35-year-old male with a history of a seizure disorder. Was brought in by EMS after they were called by the patient's roommate for what appeared to be a seizure. Patient states that he is not quite sure what happened. He states that he woke up to his roommate telling him that the paramedics were coming. He had no seizure activity since he has been under the evaluation of EMS or here in the emergency department. He states he has run out of his seizure medications. He states that yesterday was the last day that he has taken any of his seizure medication. He states that he is thirsty and generally sore but otherwise no complaints. Related Data Previous Rx's Medication Instructions Recorded amlodipine 5 mg PO DAILY #30 tab 09/26/20 levetiracetam [Keppra] 1,000 mg PO Q12H 30 Days #120 tab 09/26/20 lisinopril 10 mg PO DAILY #30 tab 09/26/20 amlodipine 5 mg PO DAILY #90 tab 11/08/20 levetiracetam 1,000 mg PO BID #180 tab 11/08/20 lisinopril 10 mg PO BID #90 tab 11/08/20 levetiracetam [Keppra] 1,000 mg PO Q12H #180 tab 01/01/21 Allergies Allergy/AdvReac Type Severity Reaction Status Date / Time No Known Drug Allergies Allergy Verified 12/31/20 23:26 Review of Systems Constitutional Constitutional: Reports body ache(s) and Denies headache(s) ENT Ears, Nose, Mouth, and Throat: Denies headache(s) Cardiovascular Cardiovascular: Reports system reviewed and no additional complaints, except as documented Respiratory Respiratory: Reports system reviewed and no additional complaints, except as documented Gastrointestinal Gastrointestinal: Reports system reviewed and no additional complaints, except as documented Musculoskeletal Musculoskeletal: Reports system reviewed and no additional complaints, except as documented Integumentary/Breasts Skin/Breast: Reports system reviewed and no additional complaints, except as documented Neurologic Neurologic: Denies headache(s) Comments: Seizure-like activity Psychiatric Psychiatric: Denies suicidal ideation Endocrine Endocrine: Reports system reviewed and no additional complaints, except as documented Hematologic/Lymphatic Hematologic/Lymphatic: Reports system reviewed and no additional complaints, except as documented Allergic/Immunologic Allergic/Immunologic: Reports system reviewed and no additional complaints, except as documented Patient History Medical History Hypertension Seizures Social History Smoking Status: Current every day smoker Smoking Status: Current every day smoker Alcohol type: hard liquor Substance Use Type: marijuana Exam Initial Vital Signs Initial Vital Signs: Vital Signs Temperature 97.8 F 12/31/20 23:30 Pulse Rate 96 H 12/31/20 23:30 Respiratory Rate 18 12/31/20 23:30 Blood Pressure 136/98 H 12/31/20 23:30 Pulse Oximetry 99 12/31/20 23:30 Const General: cooperative and comfortable Limitations: mental status not altered HENMT Head: normal to inspection and normocephalic Eyes General: appearance normal, both eyes and all related structures Resp Effort & Inspection: normal respiratory effort Auscultation: clear to auscultation bilaterally Cardio Rate: regular rate Rhythm: regular rhythm GI Inspection: non-distended Palpation: soft Skin Lesions: no lesions Rashes: no rashes Neuro General: patient alert, patient awake and patient oriented x3 Cognition: normal cognition Speech: speech normal Extrem General: normal to inspection and capillary refill normal Psych Appearance: grossly normal and well kempt Scores GCS Lucas coma scale eye opening: Spontaneous Lucas coma scale verbal response: Orientated Lucas coma scale motor response: Obey commands [place] coma scale total score: 15 Course Orders Ordered: Discontinued Medications Levetiracetam (Levetiracetam 250 Mg Tablet) 1,000 mg PO NOW ONE Stop: 12/31/20 23:41 Last Admin: 12/31/20 23:59 Dose: 1,000 mg Documented by: LESIA Vital Signs Vital signs: Vital Signs - 8 hr 12/31/20 23:30 Temperature 97.8 F Pulse Rate 96 H Respiratory Rate 18 Blood Pressure 136/98 H Pulse Oximetry 99 Medical Decision Making Lab Data Labs: Point of Care Testing Glucose POC 106 Point of care testing: Point of Care Testing Glucose POC 106 MDM Narrative Medical decision making narrative: Patient is alert oriented x3. Is somewhat shaky. Not clinically intoxicated. Review of his note shows that he has had issues with alcohol withdrawal seizures and also alcoholism and also an underlying seizure disorder. He states that he has been taking his antiseizure medication until yesterday when he ran out however when looking at his med ication refills he potentially has not picked it up since September. Has had no seizure activity since under the care of EMS nor here in the ER. He was given a dose of his Keppra here. He states he needs a refill of it and this will be transmitted to the pharmacy of his choice. We did discuss the importance of taking this medication. Patient can be discharged home. He was informed that he cannot drive. Discharge Plan Departure Patient Disposition: Home Clinical Impression: Seizures Instructions: DI for Seizure Disorder -- Adult Activity Restrictions/Additional Instructions: You cannot drive until you are cleared by either your primary doctor or your neurologist. If you do not have a primary doctor you can contact the health human resources recruiter here in the hospital at [phone]. This individual can help you establishing a primary provider. A prescription for Keppra was el ectronically transmitted to [facility]. It is important that you start taking this medication as directed. Return to the emergency department for any new symptoms. Prescriptions: New levetiracetam [Keppra] 500 mg tablet 1,000 mg PO Q12H Qty: 180 RF: 2 No Action levetiracetam [Keppra] 500 mg Tablet 1,000 mg PO Q12H 30 Days Qty: 120 RF: 0 amlodipine 5 mg Tablet 5 mg PO DAILY Qty: 30 RF: 0 lisinopril 10 mg Tablet 10 mg PO DAILY Qty: 30 RF: 0 amlodipine 5 mg tablet 5 mg PO DAILY Qty: 90 RF: 0 lisinopril 10 mg tablet 10 mg PO BID Qty: 90 RF: 0 levetiracetam 500 mg tablet 1,000 mg PO BID Qty: 180 RF: 0 Referrals: Miscellaneous,Doctor, [Primary Care Provider] -
[2020-12-31] MEDS: levETIRAcetam 250 MG TABLET 1000 MG PO (23:59)
[2021-01-01] VITALS: PULSE 73; O2SAT 97
[2021-01-01 00:30] VITALS: PULSE 77; O2SAT 96
[2021-01-01 00:40] VITALS: BP 150/93; PULSE 74; RESP 18; O2SAT 96
== END 2021-01-01 00:52 | disposition home or self-care (01) ==
PROVIDERS: Emergency Provider Emergency Medicine
DX: R56.9 Unspecified convulsions (principal)
CPT/HCPCS: 99283

== ENCOUNTER 2021-01-01 03:23 | Emergency (ER) | payer OTHER, MEDICAID, SELFPAY ==
[2021-01-01] VITALS (26 sets, daily range): BP systolic 128–169; BP diastolic 70–110; PULSE 80–145; RESP 14–34; TEMP 36.5–36.9; O2SAT 96–100; BMI 26.9
--- NOTE | 2021-01-01 03:29 | ED.GENADULT ---
HPI - General Adult General Chief complaint: Seizure Stated complaint: Seizures Time Seen by Provider: 01/01/21 03:27 Source: patient and EMS Mode of arrival: EMS Limitations: no limitations History of Present Illness HPI narrative: Patient is a 35-year-old male who was just discharged from this emergency department a couple hours ago after being evaluated for seizure-like activity. He has a history of seizures. According to his prior notes this is related to his alcohol use and also a seizure disorder. He is supposed to be on anti seizure medications however during his last visit here he stated that he ran out of his medications yesterday. He was given a dose of Keppra here in the ER. He tolerated that without issue. Had no further seizure-like activity so he was discharged home. He returns by EMS after he states that he was walking at home and apparently had another seizure. Lasting less than 5 minutes. Was alert and oriented at the time of EMS arrival. No treatment provided by EMS prior to arrival. Related Data Previous Rx's Medication Instructions Recorded amlodipine 5 mg PO DAILY #30 tab 09/26/20 levetiracetam [Keppra] 1,000 mg PO Q12H 30 Days #120 tab 09/26/20 lisinopril 10 mg PO DAILY #30 tab 09/26/20 amlodipine 5 mg PO DAILY #90 tab 11/08/20 levetiracetam 1,000 mg PO BID #180 tab 11/08/20 lisinopril 10 mg PO BID #90 tab 11/08/20 levetiracetam [Keppra] 1,000 mg PO Q12H #180 tab 01/01/21 Allergies Allergy/AdvReac Type Severity Reaction Status Date / Time No Known Drug Allergies Allergy Verified 12/31/20 23:26 Review of Systems Constitutional Constitutional: Reports fatigue ENT Ears, Nose, Mouth, and Throat: Reports system reviewed and no additional complaints, except as documented Cardiovascular Cardiovascular: Reports system reviewed and no additional complaints, except as documented Respiratory Respiratory: Reports system reviewed and no additional complaints, except as documented Gastrointestinal Gastrointestinal: Reports system reviewed and no additional complaints, except as documented Integumentary/Breasts Skin/Breast: Reports system reviewed and no additional complaints, except as documented Neurologic Comments: Seizure-like activity Endocrine Endocrine: Reports fatigue Hematologic/Lymphatic Hematologic/Lymphatic: Reports system reviewed and no additional complaints, except as documented Allergic/Immunologic Allergic/Immunologic: Reports system reviewed and no additional complaints, except as documented Patient History Medical History Hypertension Seizures Social History Smoking Status: Current every day smoker Smoking Status: Current every day smoker alcohol intake frequency: holidays/special occasions only Alcohol type: hard liquor Substance Use Type: marijuana Exam Initial Vital Signs Initial Vital Signs: Vital Signs Pulse Rate 120 H 01/01/21 03:26 Blood Pressure 141/80 H 01/01/21 03:26 Pulse Oximetry 96 01/01/21 03:26 Const General: cooperative and comfortable Limitations: mental status not altered HENMT Head: normal to inspection and normocephalic Mouth: lip abnormal (2 small abrasions on lower lip) and tongue abnormal (Small abrasion left-sided tongue) Resp Effort & Inspection: normal respiratory effort Cardio Rate: regular rate Neuro General: patient alert, patient awake and patient oriented x3 Cognition: normal cognition Speech: speech normal Extrem General: normal to inspection and capillary refill normal Psych Appearance: grossly normal and well kempt Scores GCS [place] coma scale eye opening: Spontaneous [place] coma scale verbal response: Orientated Lucas coma scale motor response: Obey commands Lucas coma scale total score: 15 Course Orders Ordered: ED Orders 01/01/21 03:40 Complete Blood Count AUTO DIFF Stat Comprehensive Metabolic Panel Stat Ethanol (ETOH) Stat Lipase Stat Prolactin Stat 01/01/21 04:10 Urine Drug Screen, Rapid Stat 01/01/21 07:22 XR shoulder LT min 2V Stat Sodium Chloride (Normal Saline 0.9%) 1,000 mls @ 125 mls/hr IV CONT KIRIT Last Infusion: 01/01/21 06:56 Dose: 0 mls/hr Documented by: [email or web address] Admin: 01/01/21 04:35 Dose: 125 mls/hr Documented by: CTROTTONIEL Discontinued Medications Levetiracetam (Levetiracetam 250 Mg Tablet) 1,000 mg PO NOW ONE Stop: 01/01/21 07:24 Last Admin: 01/01/21 07:48 Dose: 1,000 mg Documented by: CTRCAROLIN Lorazepam (Lorazepam 2 Mg/Ml Inj) 2 mg IV NOW ONE Stop: 01/01/21 04:17 Last Admin: 01/01/21 04:20 Dose: 2 mg Documented by: YONIS Vital Signs Vital signs: Vital Signs - 8 hr 01/01/21 03:26 01/01/21 03:30 01/01/21 03:31 Temperature 97.7 F Pulse Rate 120 H 124 H 80 Respiratory Rate 20 Blood Pressure 141/80 H 141/80 H Pulse Oximetry 96 96 98 01/01/21 04:00 01/01/21 04:22 01/01/21 04:23 Temperature Pulse Rate 117 H 134 H 124 H Respiratory Rate 34 H Blood Pressure 152/93 H 158/89 H Pulse Oximetry 96 100 99 01/01/21 04:30 01/01/21 04:45 01/01/21 05:00 Temperature Pulse Rate 126 H 133 H 145 H Respiratory Rate 22 22 23 Blood Pressure 152/83 H 149/92 H 135/75 Pulse Oximetry 99 98 97 01/01/21 05:15 01/01/21 05:30 01/01/21 05:45 Temperature Pulse Rate 129 H 113 H 116 H Respiratory Rate 22 20 22 Blood Pressure 128/70 144/82 H 132/74 Pulse Oximetry 98 96 97 01/01/21 06:00 01/01/21 06:19 01/01/21 06:30 Temperature Pulse Rate 130 H 108 H 117 H Respiratory Rate 26 H 21 25 H Blood Pressure 139/78 Pulse Oximetry 97 Medical Decision Making Lab Data Lab results reviewed: Yes I reviewed the patient's lab results. Result diagrams: 01/01/21 03:40 01/01/21 03:40 Labs: Lab Results 01/01/21 01/01/21 01/01/21 Range/Units 03:40 03:40 04:10 WBC 12.0 H (4.5-11.0) X10^3/uL RBC 4.09 L (4.5-5.9) X10^6/uL Hgb 12.6 L (13.5-17.5) g/dL Hct 38.7 L (41-53) % MCV 94.7 (80-100) fL MCH 30.8 (26-34) PG MCHC 32.5 (30-36) % RDW 16.0 H (11.6-14.8) % Plt Count 130 L (150-400) X10^3/uL Neut % (Auto) 90.1 H (50-75) % Lymph % (Auto) 4.3 L (25-40) % [place] % (Auto) 4.7 (3-14) % Eos % (Auto) 0.0 L (2-4) % Baso % (Auto) 0.9 (0-2) % Neut # (Auto) 37292 H (3853-2217) /uL Lymph # (Auto) 500 L (1964-5042) /uL [place] # (Auto) 600 (0-900) /uL Eos # (Auto) 0 (0-450) /uL Baso # (Auto) 100 (0-100) /uL Sodium 137 (137-145) mmol/L Potassium 4.2 (3.4-5.1) mmol/L Chloride 102 (98-107) mmol/L Carbon Dioxide 13 L (22-32) mmol/L BUN 9 (9-20) mg/dL Creatinine 0.88 (0.66-1.25) mg/dL Estimated GFR > 60.0 (>60) mL/min BUN/Creatinine Ratio 10.2 (6-22) Glucose 125 H (70-100) mg/dL Calcium 9.5 (8.4-10.2) mg/dL Total Bilirubin 0.3 (0.2-1.3) mg/dL AST 100 H (17-59) IU/L ALT 56 H (<50) IU/L Alkaline Phosphatase 103 (38-126) U/L Total Protein 8.2 (6.3-8.2) g/dL Albumin 4.7 (3.5-5.0) g/dL Globulin 3.5 (1.7-4.1) g/dL Albumin/Globulin Ratio 1.3 (1.0-2.8) Lipase 361 H (23-300) U/L Prolactin 10.6 (3.7-17.9) ng/mL U Opiates 300ng/mL cut Negative (Negative) Ur Oxycodone Screen Negative (Negative) Urine Methadone Screen Negative (Negative) Ur Barbiturates Screen Negative (Negative) U Tricyclic Antidepress Negative (Negative) Ur Phencyclidine Scrn Negative (Negative) Ur Amphetamines Screen Negative (Negative) U Methamphetamines Scrn Negative (Negative) Ur MDMA Scrn (Ecstasy) Negative (Negative) U Benzodiazepines Scrn Negative (Negative) Urine Cocaine Screen Negative (Negative) U Marijuana (THC) Screen Positive H (Negative) Ethyl Alcohol 25 H ( - 10) mg/dL Imaging Data Extremity x-ray #1: Attestation: I personally reviewed and interpreted this imaging study as follows: My Impression: Left shoulder x-ray shows no signs of dislocation or fracture MDM Narrative Medical decision making narrative: Patient was seen earlier this evening for seizure. Was given a dose of Keppra. Was discharged home with a prescription. Apparently after he returned home he had another seizure. This was witnessed by his girlfriend. He again arrived by EMS without prior intervention by EMS prior to arrival. While in the emergency department he had a 3rd seizure. Each of the 3 seizures in the past 12 hours he has return to normal afterwards and they all resolved on their own. After the 1 here in the emergency department he was given 2 mg of Ativan. He was observed for an extended period of time labs unremarkable. Suspect the leukocytosis is a stress reaction because of the seizure. He was able to eat and drink. He ambulated without problems. He did have left shoulder discomfort just prior to arrival so an x-ray was obtained which showed no signs of fracture or dislocation. He was given another dose of Keppra here in the ER was instructed to fill his prescriptions start taking as directed. Once again he was informed that he should consider decreasing the amount that he is drinking his this may be contributing to his symptoms. He expressed understanding and agreement. He does have a follow-up with a new primary doctor within the next few days. Discharge Plan Departure Patient Disposition: Home Clinical Impression: Seizures Instructions: DI for Seizure Disorder -- Adult Activity Restrictions/Additional Instructions: You were given another dose of your Keppra this morning. Your next dose will be this evening. It is important that you continue to take your anti seizure medications and I do recommend that you consider decreasing/stopping the amount that you are drinking. Contact your primary provider for follow-up. Return to the emergency department for any new or worsening symptoms Prescriptions: No Action levetiracetam [Keppra] 500 mg Tablet 1,000 mg PO Q12H 30 Days Qty: 120 RF: 0 amlodipine 5 mg Tablet 5 mg PO DAILY Qty: 30 RF: 0 lisinopril 10 mg Tablet 10 mg PO DAILY Qty: 30 RF: 0 levetiracetam [Keppra] 500 mg tablet 1,000 mg PO Q12H Qty: 180 RF: 2 amlodipine 5 mg tablet 5 mg PO DAILY Qty: 90 RF: 0 lisinopril 10 mg tablet 10 mg PO BID Qty: 90 RF: 0 levetiracetam 500 mg tablet 1,000 mg PO BID Qty: 180 RF: 0 Referrals: Miscellaneous,Doctor, MD [Primary Care Provider] -
[2021-01-01 03:52] LABS: Add Manual Diff / Slide Review NO; Basophils Absolute Auto 100 /uL (0-100); Basophils Percent Auto 0.9 % (0-2); Eosinophils Absolute Auto 0 /uL (0-450); Hematocrit 38.7 % (41-53); Hemoglobin 12.6 g/dL (13.5-17.5); Lymphocytes Absolute Auto 500 /uL (1100-4500); Lymphocytes Percent Auto 4.3 % (25-40); Mean Corpuscular HGB Conc 32.5 % (30-36); Mean Corpuscular Hemoglobin 30.8 PG (26-34); Mean Corpuscular Volume 94.7 fL (80-100); Monocytes Absolute Auto 600 /uL (0-900); Monocytes Percent Auto 4.7 % (3-14); Neutrophils Absolute Auto 10900 /uL (1500-7000); Neutrophils Percent Auto 90.1 % (50-75); Platelet Count 130 X10^3/uL (150-400); Red Blood Cell Count 4.09 X10^6/uL (4.5-5.9)
[2021-01-01 03:57] LABS: HEMOLYSIS < 15 (0-50)
[2021-01-01 04:02] LABS: Alanine Aminotransferase 56 IU/L (<50); Albumin 4.7 g/dL (3.5-5.0); Albumin Globulin Ratio 1.3 (1.0-2.8); Alkaline Phosphatase 103 U/L (38-126); Aspartate Aminotransferase 100 IU/L (17-59); BUN Creatinine Ratio 10.2 (6-22); Bilirubin Total 0.3 mg/dL (0.2-1.3); Blood Urea Nitrogen 9 mg/dL (9-20); Calcium 9.5 mg/dL (8.4-10.2); Carbon Dioxide 13 mmol/L (22-32); Chloride 102 mmol/L (98-107); Estimated Glomerular Filt Rate > 60.0 mL/min (>60); Globulin 3.5 g/dL (1.7-4.1); Glucose 125 mg/dL (70-100); Lipase 361 U/L (23-300); Potassium 4.2 mmol/L (3.4-5.1); Sodium 137 mmol/L (137-145); Total Protein 8.2 g/dL (6.3-8.2)
[2021-01-01] MEDS: LORazepam 2 MG/ML INJ IV ×2 (04:20→08:58)
--- NOTE | 2021-01-01 04:20 | PC.NURSE ---
Pt had witnessed tonic clonic seizure lasting 1 minute, stopped with ativan administration. Pt placed on NRB during recovery, suction at bedside.
[2021-01-01] MEDS: SODIUM CHLORIDE 0.9% 1,000 ML 125 ML IV (04:35)
[2021-01-01 04:48] LABS: UR Morphine/Opiate cutoff 300 Negative (Negative); Ur Creatinine 20 (Normal); Ur Specific Gravity 1.025 (Normal); Urine Amphetamines Negative (Negative); Urine Barbiturates Negative (Negative); Urine Benzodiazepines Negative (Negative); Urine Cocaine Negative (Negative); Urine MDMA Negative (Negative); Urine Methadone Negative (Negative); Urine Methamphetamines Negative (Negative); Urine Oxycodone Negative (Negative); Urine Phencyclidine Negative (Negative); Urine Tetrahydrocannabinol Positive (Negative); Urine Tricyclic Antidepressant Negative (Negative); Urine pH 5 (Normal)
[2021-01-01 05:08] LABS: Ethanol (ETOH) 25 mg/dL
[2021-01-01 05:25] LABS: Prolactin 10.6 ng/mL (3.7-17.9)
--- NOTE | 2021-01-01 07:22 | DI.RAD.S_ITS ---
PROCEDURE: XR SHOULDER LT MIN 2V INDICATIONS: Left shoulder pain after seizure TECHNIQUE: 3 views of the shoulder were acquired. COMPARISON: Located Within [facility], CR, XR SHOULDER RT MIN 2V, 08/04/2020, 22:40. Located Within [facility], CR, XR SHOULDER LT MIN 2V, 09/26/2020, 11:33. FINDINGS: Bones: There is irregularity of the medial humeral head as well as suggestion of posterior subluxation. Otherwise, no fractures or dislocation. No suspicious bony lesions. Visualized ribs appear intact. Soft tissues: No suspicious soft tissue calcifications. IMPRESSION: 1. Suggestion of posterior subluxation of the glenohumeral joint. Recommend correlation with clinical exam. Findings discussed with Dr. Homl on 01/01/2021 at 8:10 a.m.. 2. Irregularity of the medial humeral head may reflect a possible reverse Hill-Sachs lesion. Dictated by: Jarret Floyd M.D. on 01/01/2021 at 8:01 Approved by: Jarret Floyd M.D. on 01/01/2021 at 8:15
[2021-01-01] MEDS: levETIRAcetam 250 MG TABLET 1000 MG PO (07:48)
[2021-01-01] MEDS: SODIUM CHLORIDE 0.9% 1,000 ML 999 ML IV (08:42)
[2021-01-01] MEDS: propofoL 200 MG/20 ML VIAL 95 MG IV (08:44)
== END 2021-01-01 10:17 | disposition home or self-care (01) ==
PROVIDERS: Emergency Provider Emergency Medicine
DX: R56.9 Unspecified convulsions (principal); R53.83 Other fatigue
CPT/HCPCS: 23650; 36415; 73030; 80053; 80305; 80320; 83690; 84146; 85025; 96361; 96374; 96376; 99152; 99285; J2060; J2704

== ENCOUNTER 2021-01-02 14:27 | Emergency (ER) | payer OTHER, MEDICAID, SELFPAY ==
[2021-01-02 14:30] VITALS: BP 149/94; PULSE 111; RESP 15; TEMP 37.1; O2SAT 96; BMI 26.9
[2021-01-02 14:54] VITALS: PULSE 82; O2SAT 99
[2021-01-02] MEDS: SODIUM CHLORIDE 0.9% 1,000 ML 1000 ML IV (14:56)
[2021-01-02 15:00] VITALS: BP 134/82; PULSE 75; O2SAT 99
[2021-01-02 15:03] LABS: Add Manual Diff / Slide Review NO; Basophils Absolute Auto 0 /uL (0-100); Basophils Percent Auto 0.3 % (0-2); Eosinophils Absolute Auto 0 /uL (0-450); Eosinophils Percent Auto 0.5 % (2-4); Hemoglobin 13.3 g/dL (13.5-17.5); Lymphocytes Absolute Auto 2100 /uL (1100-4500); Lymphocytes Percent Auto 24.4 % (25-40); Mean Corpuscular HGB Conc 33.1 % (30-36); Mean Corpuscular Hemoglobin 31.2 PG (26-34); Monocytes Absolute Auto 900 /uL (0-900); Neutrophils Absolute Auto 5400 /uL (1500-7000); Neutrophils Percent Auto 63.8 % (50-75); Platelet Count 118 X10^3/uL (150-400); Red Blood Cell Count 4.25 X10^6/uL (4.5-5.9); Red Cell Distribution Width 15.4 % (11.6-14.8); White Blood Cell Count 8.4 X10^3/uL (4.5-11.0)
--- NOTE | 2021-01-02 15:03 | DI.RAD.S_ITS ---
PROCEDURE: XR SHOULDER LT MIN 2V INDICATIONS: possible posterior dislocation TECHNIQUE: 3 views of the shoulder were acquired. COMPARISON: [facility], CR, XR SHOULDER LT MIN 2V, 01/01/2021, 7:35. [facility], CR, XR SHOULDER RT MIN 2V, 01/02/2021, 15:22. FINDINGS: Bones: No acute fractures or dislocations. Previously seen possible posterior subluxation of the humeral head is not appreciated on this exam. No suspicious bony lesions. Visualized ribs appear intact. Soft tissues: No suspicious soft tissue calcifications. IMPRESSION: Left shoulder without acute fracture or dislocation. Previously reported possible posterior subluxation is not appreciated on this exam. Dictated by: Flash Belle M.D. on 01/02/2021 at 16:28 Approved by: Flash Belle M.D. on 01/02/2021 at 16:30
--- NOTE | 2021-01-02 15:06 | ED.PSYCH ---
HPI - Psych General Chief Complaint: Psychiatric Symptoms Stated Complaint: Alcoholic/Suicidal Time Seen by Provider: 01/02/21 15:03 Source: patient and old records reviewed Mode of arrival: Ambulatory Limitations: no limitations History of Present Illness HPI Narrative: 35-year-old male comes emergency department brought by his friend. Friend states that he needs alcohol detox. Friend also states that patient told him he wanted to blow his brains on the way into the department. Patient initially denies this but when asked more directly states he did say this to his friend. He states he was frustrated and that he does not have access to and that he does not feel like he would actually tried to kill himself. He has had thoughts of harming himself. Patient does not have an active suicidal intent or thoughts at this time. Patient does have a history of alcohol abuse. His last drink was around 6:00 p.m. last night according to the patient and his friend who is at bedside. Patient was seen here on 12/31/20 for seizure activity likely precipitated while withdrawal. Was also noted the patient had a dislocated shoulder. Patient states that today his right shoulder is bothering him more. He states his left shoulder hurts as well. He states that he dislocates his shoulder and has noted in the past. He states he cannot only with 2 shoulders above his head. Patient is on Keppra, he states he has been taking his medication although his friend at bedside states that he has not been taking his medication regularly and is not good about refilling it. Patient denies any withdrawal symptoms at this time. He has not had any additional seizures since into Monday. Patient states that this time he is here because his friends are making him. He states he will go to detox because they are making but he does not particularly wish to go. He states he uses cocaine intermittently but has not for some time. He denies any other illicit drugs besides marijuana. Related Data Previous Rx's Medication Instructions Recorded amlodipine 5 mg PO DAILY #30 tab 09/26/20 levetiracetam [Keppra] 1,000 mg PO Q12H 30 Days #120 tab 09/26/20 lisinopril 10 mg PO DAILY #30 tab 09/26/20 amlodipine 5 mg PO DAILY #90 tab 11/08/20 levetiracetam 1,000 mg PO BID #180 tab 11/08/20 lisinopril 10 mg PO BID #90 tab 11/08/20 levetiracetam [Keppra] 1,000 mg PO Q12H #180 tab 01/01/21 Allergies Allergy/AdvReac Type Severity Reaction Status Date / Time No Known Drug Allergies Allergy Verified 01/02/21 15:23 Review of Systems Review of Systems ROS Unobtainable: All systems reviewed & are unremarkable except as noted in HPI and below Patient History Medical History Hypertension Seizures Social History Smoking Status: Current every day smoker Smoking Status: Current every day smoker alcohol intake frequency: 3 or more drinks per day Alcohol type: hard liquor Substance Use Type: marijuana and crack/cocaine Exam Narrative Exam Narrative: GEN: well nourished, well appearing male, alert and oriented x 3, patient appears to be in mild distress. HEENT: Atraumatic, pupils are equal round reactive to light, extraocular movements are intact, no facial droop. HEART: Regular rate and rhythm without murmur, clicks, rubs. LUNGS:Lungs clear to auscultation, no wheezes, rales, crackles, chest moves symmetrically ABD:bowel sounds normal, soft, non-tender, no guarding, rebound, rigidity, no masses noted, no hepatosplenomegaly MSCL: Patient has discomfort of bilateral shoulders on palpation. No muscle atrophy, muscles strength 5/5 upper extremities, but patient is unable to abduct or flex his left arm above his head, patient does have more range of motion of right upper extremity. Patient has 2+ pulses bilaterally. NEURO:CN 2-12 intact, sensation normal Initial Vital Signs Initial Vital Signs: Vital Signs Temperature 98.7 F 01/02/21 14:30 Pulse Rate 111 H 01/02/21 14:30 Respiratory Rate 15 01/02/21 14:30 Blood Pressure 149/94 H 01/02/21 14:30 Pulse Oximetry 96 01/02/21 14:30 Scores GCS Lucas coma scale eye opening: Spontaneous Power coma scale verbal response: Orientated Lucas coma scale motor response: Obey commands Lucas coma scale total score: 15 Course Orders Ordered: ED Orders 01/02/21 14:45 Acetaminophen Stat COVID19 -Nasal swab/Pre-Proc Stat Complete Blood Count AUTO DIFF Stat Comprehensive Metabolic Panel Stat Ethanol (ETOH) Stat Free T4, Direct Thyroxine Stat Salicylate Stat Thyroid Stimulating Hormone Stat 01/02/21 15:03 XR shoulder LT min 2V Stat 01/02/21 15:23 XR shoulder RT min 2V Stat 01/02/21 15:25 Consult to [employer] - Neurology Professor Stat Discontinued Medications Chlordiazepoxide HCl (Chlordiazepoxide 25 Mg Capsule) 25 mg PO NOW ONE Stop: 01/02/21 16:00 Last Admin: 01/02/21 16:28 Dose: 25 mg Documented by: OTONIEL Sodium Chloride (Normal Saline 0.9%) 1,000 mls @ 1,000 mls/hr IV BOLUS ONE Stop: 01/02/21 15:51 Last Infusion: 01/02/21 16:06 Dose: 0 mls/hr Documented by: Admin: 01/02/21 14:56 Dose: 1,000 mls/hr Documented by: DANYELL Magnesium Sulfate 2 gm/ Folic Acid 1 mg/ Thiamine HCl 100 mg / Multivitamins 10 ml/ Sodium Chloride 1,015.2 mls @ 125 mls/hr IV NOW ONE Stop: 01/03/21 00:06 Last Admin: 01/02/21 16:46 Dose: 125 mls/hr Documented by: OTONIEL Reevaluation(s) Reevaluation #1: Patient re-evaluated in the room separately from his roommate. Patient states that he does not plan to stop drinking after being admitted for medical detox. We discussed that he does require medical detox to safely stop drinking. He prefers to return home at this time. He currently endorses and contracts for safety. He states he has had thoughts, he does self cutting intermittently but states he does this to express his pain. He states he does not have any tension or wish to harm himself or others. Patient is currently living in his friend's house with their family. He is open to having our marriage and family social worker reach out to him for mental health resources and referral as well as assistance with alcohol and substance abuse. At this time patient's CIWA is 4. Patient is aware and expresses understanding that if he does not drink he will have seizures but alcohol use will also cause seizures. And then if he attempts to detox at home from alcohol he could from alcohol withdrawal seizures. Time: 18:35 Consultations Consultation #1: Dr. Del Real, case was discussed patient has bilateral posterior shoulder dislocations which are likely chronic in nature. He prefers that patient follow-up outpatient for CT imaging of both shoulders as patient well ultimately require bilateral shoulder replacement and if patient has recurrent seizures and dislocates his shoulders he would not have benefit from shoulder replacement. Once patient has had the opportunity become sober and is able to take his anti epilepsy medication regularly without frequent recurrence or breakthrough seizures he would be happy to follow up with the patient get CT imaging and repair. Time: 16:17 Vital Signs Vital signs: Vital Signs - 8 hr 01/02/21 14:30 01/02/21 14:54 01/02/21 15:00 Temperature 98.7 F Pulse Rate 111 H 82 75 Respiratory Rate 15 Blood Pressure 149/94 H 134/82 Pulse Oximetry 96 99 99 01/02/21 15:30 01/02/21 16:00 01/02/21 17:50 Temperature Pulse Rate 76 56 L 56 L Respiratory Rate 16 17 Blood Pressure 142/90 H 111/67 122/77 Pulse Oximetry 98 99 97 MDM - Psych Lab Data Attestation: I reviewed the patient's lab results. Result diagrams: 01/02/21 14:45 01/02/21 14:45 Labs: Lab Results 01/02/21 01/02/21 01/02/21 Range/Units 14:45 14:45 14:45 WBC 8.4 (4.5-11.0) X10^3/uL RBC 4.25 L (4.5-5.9) X10^6/uL Hgb 13.3 L (13.5-17.5) g/dL Hct 40.0 L (41-53) % MCV 94.0 (80-100) fL MCH 31.2 (26-34) PG MCHC 33.1 (30-36) % RDW 15.4 H (11.6-14.8) % Plt Count 118 L (150-400) X10^3/uL Neut % (Auto) 63.8 D (50-75) % Lymph % (Auto) 24.4 L D (25-40) % [place] % (Auto) 11.0 (3-14) % Eos % (Auto) 0.5 L (2-4) % Baso % (Auto) 0.3 (0-2) % Neut # (Auto) 5400 (1168-3881) /uL Lymph # (Auto) 2100 (4318-2523) /uL [place] # (Auto) 900 (0-900) /uL Eos # (Auto) 0 (0-450) /uL Baso # (Auto) 0 (0-100) /uL Sodium 139 (137-145) mmol/L Potassium 3.8 (3.4-5.1) mmol/L Chloride 103 (98-107) mmol/L Carbon Dioxide 26 (22-32) mmol/L BUN 8 L (9-20) mg/dL Creatinine 0.78 (0.66-1.25) mg/dL Estimated GFR > 60.0 (>60) mL/min BUN/Creatinine Ratio 10.3 (6-22) Glucose 93 (70-100) mg/dL Calcium 9.6 (8.4-10.2) mg/dL Total Bilirubin 0.6 (0.2-1.3) mg/dL AST 119 H (17-59) IU/L ALT 59 H (<50) IU/L Alkaline Phosphatase 81 (38-126) U/L Total Protein 8.2 (6.3-8.2) g/dL Albumin 4.5 (3.5-5.0) g/dL Globulin 3.7 (1.7-4.1) g/dL Albumin/Globulin Ratio 1.2 (1.0-2.8) TSH 2.42 (0.47-4.68) uIU/mL Free T4 1.04 (0.78-2.19) ng/dL Salicylates < 1.0 (<20) mg/dL Acetaminophen < 10 L (10-30) ug/mL Ethyl Alcohol 178 H ( - 10) mg/dL SARS-CoV-2 (PCR) (Negative) 01/02/21 Range/Units 14:45 WBC (4.5-11.0) X10^3/uL RBC (4.5-5.9) X10^6/uL Hgb (13.5-17.5) g/dL Hct (41-53) % MCV (80-100) fL MCH (26-34) PG MCHC (30-36) % RDW (11.6-14.8) % Plt Count (150-400) X10^3/uL Neut % (Auto) (50-75) % Lymph % (Auto) (25-40) % [place] % (Auto) (3-14) % Eos % (Auto) (2-4) % Baso % (Auto) (0-2) % Neut # (Auto) (6597-3835) /uL Lymph # (Auto) (4796-4624) /uL [place] # (Auto) (0-900) /uL Eos # (Auto) (0-450) /uL Baso # (Auto) (0-100) /uL Sodium (137-145) mmol/L Potassium (3.4-5.1) mmol/L Chloride (98-107) mmol/L Carbon Dioxide (22-32) mmol/L BUN (9-20) mg/dL Creatinine (0.66-1.25) mg/dL Estimated GFR (>60) mL/min BUN/Creatinine Ratio (6-22) Glucose (70-100) mg/dL Calcium (8.4-10.2) mg/dL Total Bilirubin (0.2-1.3) mg/dL AST (17-59) IU/L ALT (<50) IU/L Alkaline Phosphatase (38-126) U/L Total Protein (6.3-8.2) g/dL Albumin (3.5-5.0) g/dL Globulin (1.7-4.1) g/dL Albumin/Globulin Ratio (1.0-2.8) TSH (0.47-4.68) uIU/mL Free T4 (0.78-2.19) ng/dL Salicylates (<20) mg/dL Acetaminophen (10-30) ug/mL Ethyl Alcohol ( - 10) mg/dL SARS-CoV-2 (PCR) Negative (Negative) Imaging Data Extremity x-ray #1: Radiologist's Impression: [address] [id number] ReportSigned Patient: Cong Luther WMR#: [id number]: [id number]:[id number]/Sex: 35 / MDate of Service: 01/02/21Loc: EDAccession Number: [id number] Procedure: XR shoulder LT min 2V Ordering Provider: Christopher Lofton D.O. PROCEDURE: XR SHOULDER LT MIN 2V INDICATIONS: possible posterior dislocation TECHNIQUE: 3 views of the shoulder were acquired. COMPARISON: [facility], CR, XR SHOULDER LT MIN 2V, 01/01/2021, 7:35. [facility], CR, XR SHOULDER RT MIN 2V, 01/02/2021, 15:22. FINDINGS: Bones: No acute fractures or dislocations. Previously seen possible posterior subluxation of the humeral head is not appreciated on this exam. No suspicious bony lesions. Visualized ribs appear intact. Soft tissues: No suspicious soft tissue calcifications. IMPRESSION: Left shoulder without acute fracture or dislocation. Previously reported possible posterior subluxation is not appreciated on this exam. Dictated by: Flash Belle M.D. on 01/02/2021 at 16:28 Approved by: Flash Belle M.D. on 01/02/2021 at 16:30 Extremity x-ray #2: Radiologist's Impression: [address] [id number] ReportSigned Patient: Cong Luther WMR#: [id number]: [id number]:[id number]/Sex: 35 / MDate of Service: 01/02/21Lo: EDAccession Number: [id number] Procedure: XR shoulder RT min 2V Ordering Provider: Gracie Goldstein D.O. PROCEDURE: XR SHOULDER RT MIN 2V INDICATIONS: right and left shoulder pain, hx of prior dislocations. TECHNIQUE: 3 views of the right shoulder were acquired. COMPARISON: [facility], CR, XR SHOULDER LT MIN 2V, 01/01/2021, 7:35. FINDINGS: Bones: No fractures or dislocations. No suspicious bony lesions. Visualized ribs appear intact. Soft tissues: No suspicious soft tissue calcifications. IMPRESSION: Right shoulder without acute fracture or dislocation. Dictated by: Flash Belle M.D. on 01/02/2021 at 16:16 Approved by: Flash Belle M.D. on 01/02/2021 at 16:17 [facility] Narrative Medical decision making narrative: This is a 35-year-old male comes in with request for alcohol detox. Patient has made some statements to his friends about suicidal thoughts but denies any intent or ideation at this time. Patient does have a history of epilepsy, he was here on the and and had had a seizure at that time. He had what appeared to be dislocation his shoulder which is likely chronic in nature. His x-rays appear improved today on imaging by Radiology but Dr. Del Real from orthopedic surgery feels patient is likely chronically dislocated. He does not recommend treatment at this time until patient is sober and able to control his seizures better to improve his likelihood of a positive orthopedic outcome. This was discussed at length with patient, he expresses understanding. Patient's CIWA is 2, Librium p.o. was given here in the department to try to prevent withdrawal which would likely precipitate potential seizures. Patient would benefit from medical detox. After discussion with the patient separately from his friend he states his friend is making him come to the emergency department today to be treated. He does not wish to at this time. He is open to assistance from social Work they are not available here but he is willing to have them reach out. I also spoke with his roommate/friend separately who patient has stated he can share medical information with. They states he has made statements in the past about harming himself and others but that at this time he seems more lucid than he has ever been in the past and that they feel comfortable taking him home. We did discuss that if there is any concerning changes to contact 911 and have patient return to the department and contact law enforcement at any time if they feel appropriate. We also discussed that patient is welcome in the department at any time for repeat evaluation and treatment. Discharge Plan Departure Patient Disposition: Home Clinical Impression: Alcoholism, Seizure disorder, Suicidal thoughts Activity Restrictions/Additional Instructions: It is recommended that you be admitted for inpatient medical detoxification secondary to alcohol abuse and seizure disorder. You may return at any time for evaluation and treatment. Alcohol itself causes seizures, withdrawal from alcohol also causes seizure and can not be fatal. Our marriage and family social worker will be reaching out to you for possible resources for detoxification as well as assistance with any mental health issues. Please take your Keppra daily as prescribed. Please return for seizures, altered mental status, hallucinations, thoughts of harming yourself or others, persistent vomiting, lightheadedness or passing out, or other new or concerning symptoms. If you're feeling suicidal or having suicidal thoughts, contact the suicide hotline (this is also a number for self referral for counseling, detox options and treatment). . Prescriptions: No Action levetiracetam [Keppra] 500 mg Tablet 1,000 mg PO Q12H 30 Days Qty: 120 RF: 0 amlodipine 5 mg Tablet 5 mg PO DAILY Qty: 30 RF: 0 lisinopril 10 mg Tablet 10 mg PO DAILY Qty: 30 RF: 0 levetiracetam [Keppra] 500 mg tablet 1,000 mg PO Q12H Qty: 180 RF: 2 amlodipine 5 mg tablet 5 mg PO DAILY Qty: 90 RF: 0 lisinopril 10 mg tablet 10 mg PO BID Qty: 90 RF: 0 levetiracetam 500 mg tablet 1,000 mg PO BID Qty: 180 RF: 0 Referrals: Miscellaneous,Doctor, [Primary Care Provider] -
[2021-01-02 15:11] LABS: Acetaminophen < 10 ug/mL (10-30); Alanine Aminotransferase 59 IU/L (<50); Albumin 4.5 g/dL (3.5-5.0); Albumin Globulin Ratio 1.2 (1.0-2.8); Alkaline Phosphatase 81 U/L (38-126); Aspartate Aminotransferase 119 IU/L (17-59); BUN Creatinine Ratio 10.3 (6-22); Bilirubin Total 0.6 mg/dL (0.2-1.3); Blood Urea Nitrogen 8 mg/dL (9-20); Calcium 9.6 mg/dL (8.4-10.2); Carbon Dioxide 26 mmol/L (22-32); Chloride 103 mmol/L (98-107); Estimated Glomerular Filt Rate > 60.0 mL/min (>60); Ethanol (ETOH) 178 mg/dL; Globulin 3.7 g/dL (1.7-4.1); Glucose 93 mg/dL (70-100); HEMOLYSIS < 15 (0-50); Potassium 3.8 mmol/L (3.4-5.1); Salicylate < 1.0 mg/dL (<20); Sodium 139 mmol/L (137-145); Total Protein 8.2 g/dL (6.3-8.2)
[2021-01-02 15:18] LABS: COVID19 -Nasal RAPID Negative (Negative)
--- NOTE | 2021-01-02 15:23 | DI.RAD.S_ITS ---
PROCEDURE: XR SHOULDER RT MIN 2V INDICATIONS: right and left shoulder pain, hx of prior dislocations. TECHNIQUE: 3 views of the right shoulder were acquired. COMPARISON: [facility], CR, XR SHOULDER LT MIN 2V, 01/01/2021, 7:35. FINDINGS: Bones: No fractures or dislocations. No suspicious bony lesions. Visualized ribs appear intact. Soft tissues: No suspicious soft tissue calcifications. IMPRESSION: Right shoulder without acute fracture or dislocation. Dictated by: Flash Belle M.D. on 01/02/2021 at 16:16 Approved by: Flash Belle M.D. on 01/02/2021 at 16:17
[2021-01-02 15:27] LABS: Free T4, Direct Thyroxine 1.04 ng/dL (0.78-2.19)
[2021-01-02 15:30] VITALS: BP 142/90; PULSE 76; O2SAT 98
[2021-01-02 15:41] LABS: Thyroid Stimulating Hormone 2.42 uIU/mL (0.47-4.68)
[2021-01-02 16:00] VITALS: BP 111/67; PULSE 56; RESP 16; O2SAT 99
[2021-01-02] MEDS: chlordiazePOXIDE 25 MG CAPSULE PO (16:28)
[2021-01-02] MEDS: MAGNESIUM SULFATE 2 GM, FOLIC ACID 1 MG, THIAMINE 100 MG, MULTIVITAMIN 10 ML in SODIUM ... IV (16:46)
[2021-01-02 17:50] VITALS: BP 122/77; PULSE 56; RESP 17; O2SAT 97
--- NOTE | 2021-01-02 17:51 | PC.NURSE ---
provided pt with sandwich and [place]
--- NOTE | 2021-01-03 12:48 | CM.SWNOTE ---
PAYER SPECIALIST Note PAYER SPECIALIST receives f/u consult phone call referral for patient. PAYER SPECIALIST calls patient. Patient states he is doing much better and feeling much better from yesterday. Patient presents as calm and communicative on the phone. Patient states he is not in a place where he is open to rehab at this time. Patient states when he was younger he was dropped off by his parents at the hospital and went to treatment in [place] and [place] as a child. Patient states he does not have a current counselor but talks to his friend often when he is in need. Patient states that Kayce Rodriguez, PhD (Psychologist in [place], Ph. # [phone]) is someone that did house visits with him and his mom and he would like to get a counselor and plans to reach out to her today. PAYER SPECIALIST encourages outpatient counseling and coming to this ED if he experiences seizures and withdrawals again. Patient states he wants to get a handle on his alcoholism but he is overwhelmed, patient states he has PTSD and is triggered by those experiences. Patient states he feels better today because he had a long talk with his coworker friend, he states he has today off work and plans to call Adonis Rodriguez and will follow up with this PAYER SPECIALIST. PAYER SPECIALIST offers support for other resources and patient states his focus is a therapist at this time. Plan: f/u with this patient with resources avaialble if and when patient calls this PAYER SPECIALIST back. EDWARD Beaver
--- NOTE | 2021-01-14 14:21 | PC.NURSE ---
Late entry- per RN IV Fluids DC'd at 1830
== END 2021-01-02 18:46 | disposition home or self-care (01) ==
PROVIDERS: Emergency Provider Emergency Medicine
DX: R45.851 Suicidal ideations (principal); F10.20 Alcohol dependence, uncomplicated; G40.909 Epilepsy, unspecified, not intractable, without status epilepticus; S49.92XA Unspecified injury of left shoulder and upper arm, initial encounter; Z20.822 Contact with and (suspected) exposure to COVID-19
CPT/HCPCS: 36415; 73030; 80053; 80320; 80329; 84439; 84443; 85025; 87635; 96360; 96361; 99284; C9803; G0480; J3475

== ENCOUNTER 2022-02-04 05:25 | Emergency (ER) | payer OTHER, MEDICAID, SELFPAY ==
[2022-02-04] VITALS (12 sets, daily range): BP systolic 109–153; BP diastolic 59–83; PULSE 90–135; RESP 18; TEMP 35.9; O2SAT 87–98; BMI 29.0
--- NOTE | 2022-02-04 05:30 | PC.NURSE ---
pt requesting to sit on side of stretcher states his shoulders are hurting and the pain increases with lying down, sz pads are in room at bedside
--- NOTE | 2022-02-04 05:36 | ED.SEIZURE ---
HPI - Seizure <Diaz Rees MD - Last Filed: 02/10/22 05:44> General Chief Complaint: Seizure Stated Complaint: Seizure Time Seen by Provider: 02/04/22 05:28 Source: patient and EMS Mode of arrival: EMS History of Present Illness HPI Narrative: Patient brought in by ambulance from home. Patient is awake alert oriented x3. Is actually self ambulatory. Is not postictal. Patient states has history of seizures since last year. Is on daily maintenance medication has not missed any of his medications although he does not know the name of the medications. He states he did drink alcohol last night. He states on a daily basis he only gets 1-2 hours of sleep at night. He is currently living with a friend in a trailer. His friend called EMS. Had generalized tonic clonic seizure. He did bite down on his lower lip and has edema but no bleeding. Did have urinary incontinence. He states he does not drive. Otherwise no recent illness. Related Data Previous Rx's Medication Instructions Recorded amlodipine 5 mg tablet 5 mg PO DAILY #30 tabs 09/26/20 levetiracetam 500 mg tablet 1,000 mg PO Q12H 30 days #120 tabs 09/26/20 (Keppra) lisinopril 10 mg tablet 10 mg PO DAILY #30 tabs 09/26/20 amlodipine 5 mg tablet 5 mg PO DAILY #90 tabs 11/08/20 levetiracetam 500 mg tablet 1,000 mg PO BID #180 tabs 11/08/20 lisinopril 10 mg tablet 10 mg PO BID #90 tabs 11/08/20 levetiracetam 500 mg tablet 1,000 mg PO Q12H #180 tabs 01/01/21 (Keppra) Allergies Allergy/AdvReac Type Severity Reaction Status Date / Time No Known Drug Allergies Allergy Verified 01/02/21 15:23 Review of Systems <Diaz Rees MD - Last Filed: 02/10/22 05:44> Review of Systems Narrative: GENERAL: Denies chills, fatigue, malaise, fever, sweats. HEENT: Denies sinus pain, ear pain, sore throat RESPIRATORY: Denies dyspnea, cough CARDIOVASCULAR: Denies chest pain, palpitations GASTROINTESTINAL: Denies nausea, vomiting, abdominal pain : Denies dysuria, frequency, hematuria MUSCULOSKELETAL: denies muscle or bony pain SKIN: Denies rash, skin lesions NEUROLOGIC: Denies weakness, numbness , no headache, positive for seizure. ROS Unobtainable: All systems reviewed & are unremarkable except as noted in HPI and below Patient History <Diaz Rees MD - Last Filed: 02/10/22 05:44> Medical History Hypertension Seizures Social History Smoking Status: Current every day smoker Smoking Status: Current every day smoker alcohol intake frequency: 3 or more drinks per day Alcohol type: hard liquor Substance Use Type: marijuana and crack/cocaine Exam <Diaz Rees MD - Last Filed: 02/10/22 05:44> Narrative Exam Narrative: GENERAL: in no distress, not toxic not dyspneic HEAD: Normocephalic. EYES: Pupils equal round No scleral icterus. ENT: Mucous membranes moist. No tongue laceration or abrasion. There is edema of the lower lip. But no laceration. NECK: Trachea midline. CARDIOVASCULAR: Regular rate and rhythm without murmurs RESPIRATORY: Clear to auscultation. Breath sounds equal bilaterally. No wheezes, rales, or rhonchi. GASTROINTESTINAL: Abdomen soft, non-tender EXTREMITIES: No gross deformities. BACK: No flank tenderness. NEURO: AOx4. Clear speech no facial droop steady self gait in hallway to the bathroom and back. No ataxia. Is able to still day of the week as well as month and year. Not repeating questions. SKIN: Warm and dry PSYCH: Not anxious, is cooperative Initial Vital Signs Initial Vital Signs: Vital Signs Temperature 96.7 F L 02/04/22 05:21 Pulse Rate 135 H 02/04/22 05:21 Respiratory Rate 18 02/04/22 05:21 Blood Pressure 111/62 02/04/22 05:21 Pulse Oximetry 96 02/04/22 05:21 Oxygen Delivery Method 02/04/22 05:21 <Christopher Lofton DO - Last Filed: 02/04/22 12:36> Initial Vital Signs Initial Vital Signs: Vital Signs Temperature 96.7 F L 02/04/22 05:21 Pulse Rate 135 H 02/04/22 05:21 Respiratory Rate 18 02/04/22 05:21 Blood Pressure 111/62 02/04/22 05:21 Pulse Oximetry 96 02/04/22 05:21 Oxygen Delivery Method 02/04/22 05:21 Course <Diaz Rees MD - Last Filed: 02/10/22 05:44> Course Course Narrative: 6:30 a.m.. Patient had witnessed seizure here generalized tonic clonic. Staff states has been busy trying to get IV into the patient but he is on seizure precautions. Ativan 2 mg intramuscular ordered to give now. Patient remains in bed. No trauma. 7:00 a.m.. Sign out to Dr. Lofton, will need observation for status epilepticus. Labs are pending Orders Ordered: Discontinued Medications Levetiracetam 1,000 mg/ Sodium (Chloride) 110 mls @ 440 mls/hr IV NOW ONE Stop: 02/04/22 06:42 Last Infusion: 02/04/22 07:14 Dose: 0 mls/hr Documented By: Admin: 02/04/22 06:54 Dose: 440 mls/hr Documented By: MINO Lorazepam (Lorazepam 2 Mg/Ml Inj) 2 mg IM NOW ONE Stop: 02/04/22 06:39 Last Admin: 02/04/22 06:46 Dose: 2 mg Documented By: ARNOLD Vital Signs Vital signs: Vital Signs - 8 hr 02/04/22 05:21 02/04/22 06:22 02/04/22 06:30 Temperature 96.7 F L Pulse Rate 135 H 116 H Respiratory Rate 18 Blood Pressure 111/62 Pulse Oximetry 96 98 87 L Oxygen Delivery Method Room Air 02/04/22 06:44 02/04/22 06:44 02/04/22 07:01 Temperature Pulse Rate 108 H Respiratory Rate Blood Pressure 153/79 H 133/83 Pulse Oximetry 93 Oxygen Delivery Method 02/04/22 07:10 02/04/22 07:14 02/04/22 08:00 Temperature Pulse Rate 131 H 97 H Respiratory Rate 18 Blood Pressure 120/77 Pulse Oximetry 96 95 Oxygen Delivery Method 02/04/22 09:00 02/04/22 10:00 02/04/22 11:00 Temperature Pulse Rate 90 90 Respiratory Rate 18 18 Blood Pressure 119/81 126/71 109/59 L Pulse Oximetry 95 95 Oxygen Delivery Method 02/04/22 12:00 Temperature Pulse Rate Respiratory Rate Blood Pressure 113/64 Pulse Oximetry Oxygen Delivery Method <Christopher Lofton DO - Last Filed: 02/04/22 12:36> Orders Ordered: Discontinued Medications Levetiracetam 1,000 mg/ Sodium (Chloride) 110 mls @ 440 mls/hr IV NOW ONE Stop: 02/04/22 06:42 Last Infusion: 02/04/22 07:14 Dose: 0 mls/hr Documented By: Admin: 02/04/22 06:54 Dose: 440 mls/hr Documented By: MINO Lorazepam (Lorazepam 2 Mg/Ml Inj) 2 mg IM NOW ONE Stop: 02/04/22 06:39 Last Admin: 02/04/22 06:46 Dose: 2 mg Documented By: ARNOLD Vital Signs Vital signs: Vital Signs - 8 hr 02/04/22 05:21 02/04/22 06:22 02/04/22 06:30 Temperature 96.7 F L Pulse Rate 135 H 116 H Respiratory Rate 18 Blood Pressure 111/62 Pulse Oximetry 96 98 87 L Oxygen Delivery Method Room Air 02/04/22 06:44 02/04/22 06:44 02/04/22 07:01 Temperature Pulse Rate 108 H Respiratory Rate Blood Pressure 153/79 H 133/83 Pulse Oximetry 93 Oxygen Delivery Method 02/04/22 07:10 02/04/22 07:14 02/04/22 08:00 Temperature Pulse Rate 131 H 97 H Respiratory Rate 18 Blood Pressure 120/77 Pulse Oximetry 96 95 Oxygen Delivery Method 02/04/22 09:00 02/04/22 10:00 02/04/22 11:00 Temperature Pulse Rate 90 90 Respiratory Rate 18 18 Blood Pressure 119/81 126/71 109/59 L Pulse Oximetry 95 95 Oxygen Delivery Method 02/04/22 12:00 Temperature Pulse Rate Respiratory Rate Blood Pressure 113/64 Pulse Oximetry Oxygen Delivery Method MDM - Seizure <Diaz Rees MD - Last Filed: 02/10/22 05:44> Lab Data Result diagrams: 02/04/22 06:45 02/04/22 07:54 Labs: Lab Results 02/04/22 02/04/22 Range/Units 06:45 07:54 WBC 14.0 H (4.5-11.0) X10^3/uL RBC 4.09 L (4.5-5.9) X10^6/uL Hgb 13.4 L (13.5-17.5) g/dL Hct 40.9 L (41-53) % MCV 100.0 (80-100) fL MCH 32.8 (26-34) PG MCHC 32.8 (30-36) % RDW 13.5 (11.6-14.8) % Plt Count 176 (150-400) X10^3/uL Neut % (Auto) 82.1 H (50-75) % Lymph % (Auto) 11.9 L (25-40) % [place] % (Auto) 5.7 (3-14) % Eos % (Auto) 0.0 L (2-4) % Baso % (Auto) 0.3 (0-2) % Neut # (Auto) 08698 H (8541-8663) /uL Lymph # (Auto) 1700 (1959-3929) /uL [place] # (Auto) 800 (0-900) /uL Eos # (Auto) 0 (0-450) /uL Baso # (Auto) 0 (0-100) /uL Sodium 130 L (137-145) mmol/L Potassium 4.8 (3.4-5.1) mmol/L Chloride 96 L (98-107) mmol/L Carbon Dioxide 22 (22-32) mmol/L BUN 15 (9-20) mg/dL Creatinine 1.31 H (0.66-1.25) mg/dL Estimated GFR > 60 (>60) mL/min BUN/Creatinine Ratio 11.5 (6-22) Glucose 104 H (70-100) mg/dL Calcium 9.9 (8.4-10.2) mg/dL Total Bilirubin 0.8 (0.2-1.3) mg/dL AST 109 H (17-59) IU/L ALT 75 H (<50) IU/L Alkaline Phosphatase 116 (38-126) U/L Total Protein 8.7 H (6.3-8.2) g/dL Albumin 5.0 (3.5-5.0) g/dL Globulin 3.7 (1.7-4.1) g/dL Albumin/Globulin Ratio 1.4 (1.0-2.8) Ethyl Alcohol < 10 ( - 10) mg/dL <Christopher Lanker, DO - Last Filed: 02/04/22 12:36> Lab Data Labs: Lab Results 02/04/22 02/04/22 Range/Units 06:45 07:54 WBC 14.0 H (4.5-11.0) X10^3/uL RBC 4.09 L (4.5-5.9) X10^6/uL Hgb 13.4 L (13.5-17.5) g/dL Hct 40.9 L (41-53) % MCV 100.0 (80-100) fL MCH 32.8 (26-34) PG MCHC 32.8 (30-36) % RDW 13.5 (11.6-14.8) % Plt Count 176 (150-400) X10^3/uL Neut % (Auto) 82.1 H (50-75) % Lymph % (Auto) 11.9 L (25-40) % [place] % (Auto) 5.7 (3-14) % Eos % (Auto) 0.0 L (2-4) % Baso % (Auto) 0.3 (0-2) % Neut # (Auto) 07314 H (3655-2774) /uL Lymph # (Auto) 1700 (0883-2561) /uL [place] # (Auto) 800 (0-900) /uL Eos # (Auto) 0 (0-450) /uL Baso # (Auto) 0 (0-100) /uL Sodium 130 L (137-145) mmol/L Potassium 4.8 (3.4-5.1) mmol/L Chloride 96 L (98-107) mmol/L Carbon Dioxide 22 (22-32) mmol/L BUN 15 (9-20) mg/dL Creatinine 1.31 H (0.66-1.25) mg/dL Estimated GFR > 60 (>60) mL/min BUN/Creatinine Ratio 11.5 (6-22) Glucose 104 H (70-100) mg/dL Calcium 9.9 (8.4-10.2) mg/dL Total Bilirubin 0.8 (0.2-1.3) mg/dL AST 109 H (17-59) IU/L ALT 75 H (<50) IU/L Alkaline Phosphatase 116 (38-126) U/L Total Protein 8.7 H (6.3-8.2) g/dL Albumin 5.0 (3.5-5.0) g/dL Globulin 3.7 (1.7-4.1) g/dL Albumin/Globulin Ratio 1.4 (1.0-2.8) Ethyl Alcohol < 10 ( - 10) mg/dL MDM Narrative Medical decision making narrative: Dr Lofton: Received turned over. Review patient's history and physical. Patient does have a history of seizures. After period of observation the patient woke up. Was appropriate. States that he felt somewhat tired but otherwise had no other complaints. He did state that yesterday morning he did not take his normal dose of Keppra. He does have a prescription for this. He needs no refills. We will hold on further workup for now. Is given return precautions. He expressed understanding and agreement. Discharge Plan Departure Patient Disposition: Home Clinical Impression: Seizures Instructions: DI for Seizure Disorder -- Adult Activity Restrictions/Additional Instructions: It is important that you take all of your medications as directed. No driving until you are cleared by your neurologist. Return to the emergency department for any new or worsening symptoms. Prescriptions: No Action levetiracetam [Keppra] 500 mg Tablet 1,000 mg PO Q12H 30 Days Qty: 120 0RF amlodipine 5 mg Tablet 5 mg PO DAILY Qty: 30 0RF lisinopril 10 mg Tablet 10 mg PO DAILY Qty: 30 0RF levetiracetam [Keppra] 500 mg tablet 1,000 mg PO Q12H Qty: 180 2RF amlodipine 5 mg tablet 5 mg PO DAILY Qty: 90 0RF lisinopril 10 mg tablet 10 mg PO BID Qty: 90 0RF levetiracetam 500 mg tablet 1,000 mg PO BID Qty: 180 0RF Referrals: Miscellaneous,Doctor, MD [Primary Care Provider] - Visit Report Forms: Patient Portal/API
[2022-02-04] MEDS: LORazepam 2 MG/ML INJ IM (06:46)
--- NOTE | 2022-02-04 06:51 | PC.NURSE ---
called to room per pt noted to be having tonic-clonic sz activity that lasted for about 1-2 min, after sz activity stopped pt appears to be post-ictal, disoriented but easily redirectable
[2022-02-04] MEDS: levETIRAcetam 1,000 MG in SODIUM CHLORIDE 0.9% 100 ML 440 MG IV (06:54)
[2022-02-04 06:59] LABS: Add Manual Diff / Slide Review NO; Basophils Absolute Auto 0 /uL (0-100); Basophils Percent Auto 0.3 % (0-2); Eosinophils Absolute Auto 0 /uL (0-450); Hematocrit 40.9 % (41-53); Hemoglobin 13.4 g/dL (13.5-17.5); Lymphocytes Absolute Auto 1700 /uL (1100-4500); Lymphocytes Percent Auto 11.9 % (25-40); Mean Corpuscular HGB Conc 32.8 % (30-36); Mean Corpuscular Hemoglobin 32.8 PG (26-34); Monocytes Absolute Auto 800 /uL (0-900); Monocytes Percent Auto 5.7 % (3-14); Neutrophils Absolute Auto 11500 /uL (1500-7000); Neutrophils Percent Auto 82.1 % (50-75); Platelet Count 176 X10^3/uL (150-400); Red Blood Cell Count 4.09 X10^6/uL (4.5-5.9); Red Cell Distribution Width 13.5 % (11.6-14.8)
[2022-02-04 08:17] LABS: Ethanol (ETOH) < 10 mg/dL
[2022-02-04 08:20] LABS: Alanine Aminotransferase 75 IU/L (<50); Albumin Globulin Ratio 1.4 (1.0-2.8); Alkaline Phosphatase 116 U/L (38-126); Aspartate Aminotransferase 109 IU/L (17-59); BUN Creatinine Ratio 11.5 (6-22); Bilirubin Total 0.8 mg/dL (0.2-1.3); Blood Urea Nitrogen 15 mg/dL (9-20); Calcium 9.9 mg/dL (8.4-10.2); Carbon Dioxide 22 mmol/L (22-32); Chloride 96 mmol/L (98-107); Estimated Glomerular Filt Rate > 60 mL/min (>60); Globulin 3.7 g/dL (1.7-4.1); Glucose 104 mg/dL (70-100); HEMOLYSIS < 15 (0-50); Potassium 4.8 mmol/L (3.4-5.1); Sodium 130 mmol/L (137-145); Total Protein 8.7 g/dL (6.3-8.2)
== END 2022-02-04 12:39 | disposition home or self-care (01) ==
PROVIDERS: Emergency Medicine; Emergency Provider Emergency Medicine
DX: R56.9 Unspecified convulsions (principal)
CPT/HCPCS: 36415; 80053; 80320; 85025; 96365; 96372; 99284; J1953; J2060

== ENCOUNTER 2022-03-25 10:31 | Emergency (ER) | payer OTHER, MEDICAID, SELFPAY ==
[2022-03-25] VITALS (9 sets, daily range): BP systolic 113–126; BP diastolic 69–84; PULSE 71–127; RESP 18–20; TEMP 37.2; O2SAT 95–100; BMI 27.7
--- NOTE | 2022-03-25 10:37 | ED_ITS ---
HPI - Seizure General Chief Complaint: Seizure Stated Complaint: Seizures Time Seen by Provider: 03/25/22 10:37 History of Present Illness HPI Narrative: Patient is a 36-year-old male history of seizures presenting today with a 3 seizures. 1st seizure was this morning around 5:00 a.m.. He overall some extremely poor historian. He states he has not missed any of his Keppra. 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 He had stool incontinence. Glucose was within normal limits. He is a bit confused still. Related Data Previous Rx's Medication Instructions Recorded amlodipine 5 mg tablet 5 mg PO DAILY #30 tabs 09/26/20 levetiracetam 500 mg tablet 1,000 mg PO Q12H 30 days #120 tabs 09/26/20 (Keppra) lisinopril 10 mg tablet 10 mg PO DAILY #30 tabs 09/26/20 amlodipine 5 mg tablet 5 mg PO DAILY #90 tabs 11/08/20 levetiracetam 500 mg tablet 1,000 mg PO BID #180 tabs 11/08/20 lisinopril 10 mg tablet 10 mg PO BID #90 tabs 11/08/20 levetiracetam 500 mg tablet 1,000 mg PO Q12H #180 tabs 01/01/21 (Keppra) Allergies Allergy/AdvReac Type Severity Reaction Status Date / Time No Known Drug Allergies Allergy Verified 01/02/21 15:23 Review of Systems Review of Systems Narrative: GENERAL: Denies chills, fatigue, malaise, fever, sweats, travel HEENT: Denies sinus pain, ear pain, sore throat, difficulty swallowing, neck pa in RESPIRATORY: Denies dyspnea, cough, wheezing, hemoptysis, sputum. CARDIOVASCULAR: Denies chest pain, palpitations, orthopnea, edema GASTROINTESTINAL: Denies nausea, vomiting, abdominal pain, diarrhea, constipation, melena. : Denies dysuria, frequency, incontinence, hematuria, urinary retention, flank pain. MUSCULOSKELETAL: Denies weakness, joint pain, or bony pain SKIN: No rash, no erythema, no pruritus NEUROLOGIC: See HPI PSYCHIATRIC: No concerning psychosocial issues. 12 point review of systems is negative except for those stated above and HPI Patient History Medical History Hypertension Seizures Social History Smoking Status: Current every day smoker Smoking Status: Current every day smoker alcohol intake frequency: 3 or more drinks per day Alcohol type: hard liquor Substance Use Type: marijuana and crack/cocaine Exam Initial Vital Signs Initial Vital Signs: Vital Signs Temperature 99 F 03/25/22 10:32 Pulse Rate 127 H 03/25/22 10:32 Respiratory Rate 18 03/25/22 10:32 Blood Pressure 113/69 03/25/22 10:32 Pulse Oximetry 95 03/25/22 10:32 Oxygen Delivery Method 03/25/22 10:32 GENERAL: Alert 36-year-old male and in no acute distress. HEENT: Head atraumatic,EOMI, pupils reactive, face symmetric, moist mucous membranes CARDIOVASCULAR: Regular rate and rhythm without murmurs, rubs or gallops. RESPIRATORY: Breath sounds equal bilaterally, no wheezes rales or rhonchi. ABDOMEN: Soft, nontender. Normoactive bowel sounds all 4 quadrants. No guarding or rebound. EXTREMITIES: Normal range of motion, no clubbing or edema. Neurovascularly intact NEUROLOGICAL: Alert and oriented x4.Normal gait and speech. Cranial nerves II through XII grossly intact. Good [id number], good [id number], strength equal bilaterally, no dysarthria or aphasia, sensation in tact to soft touch bilaterally, no visual changes, no facial droop SKIN: Warm, dry, no laceration, no petechiae, no rashes or lesions. Course Orders Ordered: ED Orders 03/25/22 11:05 CBC Auto Diff [Complete Blood Count AUTO DIFF] Stat CMP [Comprehensive Metabolic Panel] Stat ETOH [Ethanol (ETOH)] Stat Discontinued Medications Sodium Chloride (Normal Saline 0.9%) 1,000 mls @ 1,000 mls/hr IV BOLUS ONE Stop: 03/25/22 11:42 Last Infusion: 03/25/22 12:36 Dose: 0 mls/hr Documented By: Admin: 03/25/22 11:02 Dose: 1,000 mls/hr Documented By: JOSEU Vital Signs Vital signs: Vital Signs - 8 hr 03/25/22 10:32 03/25/22 10:53 03/25/22 11:00 Temperature 99 F Pulse Rate 127 H 109 H 101 H Respiratory Rate 18 Blood Pressure 113/69 Pulse Oximetry 95 96 100 Oxygen Delivery Method Room Air 03/25/22 11:30 03/25/22 12:00 03/25/22 12:30 Temperature Pulse Rate 76 71 84 Respiratory Rate Blood Pressure Pulse Oximetry 98 98 98 Oxygen Delivery Method 03/25/22 12:34 03/25/22 12:35 03/25/22 12:35 Temperature Pulse Rate 83 85 Respiratory Rate 20 Blood Pressure 122/83 Pulse Oximetry 99 99 Oxygen Delivery Method 03/25/22 13:40 Temperature Pulse Rate 77 Respiratory Rate 18 Blood Pressure 126/84 Pulse Oximetry 99 Oxygen Delivery Method Room Air MDM - Seizure Lab Data Result diagrams: 03/25/22 11:05 03/25/22 11:05 Labs: Lab Results 03/25/22 03/25/22 Range/Units 11:05 11:05 WBC 11.8 H (4.5-11.0) X10^3/uL RBC 3.59 L (4.5-5.9) X10^6/uL Hgb 11.8 L (13.5-17.5) g/dL Hct 34.6 L (41-53) % MCV 96.2 (80-100) fL MCH 32.7 (26-34) PG MCHC 34.0 (30-36) % RDW 14.9 H (11.6-14.8) % Plt Count 197 (150-400) X10^3/uL Neut % (Auto) 85.3 H (50-75) % Lymph % (Auto) 7.1 L (25-40) % [place] % (Auto) 7.3 (3-14) % Eos % (Auto) 0.1 L (2-4) % Baso % (Auto) 0.2 (0-2) % Neut # (Auto) 24023 H (6792-3801) /uL Lymph # (Auto) 800 L (3635-0854) /uL [place] # (Auto) 900 (0-900) /uL Eos # (Auto) 0 (0-450) /uL Baso # (Auto) 0 (0-100) /uL Sodium 129 L (137-145) mmol/L Potassium 4.2 (3.4-5.1) mmol/L Chloride 95 L (98-107) mmol/L Carbon Dioxide 18 L (22-32) mmol/L BUN 21 H (9-20) mg/dL Creatinine 1.83 H (0.66-1.25) mg/dL Estimated GFR 48 L (>60) mL/min BUN/Creatinine Ratio 11.5 (6-22) Glucose 124 H (70-100) mg/dL Calcium 9.6 (8.4-10.2) mg/dL Total Bilirubin 0.8 (0.2-1.3) mg/dL AST 165 H (17-59) IU/L ALT 106 H (<50) IU/L Alkaline Phosphatase 85 (38-126) U/L Total Protein 8.5 H (6.3-8.2) g/dL Albumin 4.8 (3.5-5.0) g/dL Globulin 3.7 (1.7-4.1) g/dL Albumin/Globulin Ratio 1.3 (1.0-2.8) Ethyl Alcohol < 10 ( - 10) mg/dL MDM Narrative Medical decision making narrative: Page a known seizure history clear exactly how many seizures he had in the time between them. He is obviously a little postictal now. Mildly hyponatremic at 129 previously 130 not significant. He does not know the name of his neurologist. It appears that his PCP has been feeling his Keppra. He drinks alcohol on a regular basis is may be contributing to his breakthrough seizures. Recommend following up with his neurologist and stop drinking Discharge Plan Departure Patient Disposition: Home Clinical Impression: Seizures Instructions: DI for Seizure Disorder -- Adult Activity Restrictions/Additional Instructions: DO NOT DRIVE *You have been diagnosed with seizures *What to do: He at this time I do strongly encourage you to follow-up with your neurologist. It alcohol may be contributing to your breakthrough seizures. Stopping alcohol abruptly can cause increase in seizures, please do so under supervision *Continue to take medications as directed Continue Keppra as prescribed *Follow up with your primary care provider in 2-3 days or call [phone] Call your neurologist for further recommendations *Return to ER if you should have recurrent seizures, persistent vomiting or any new, worsening or concerning symptom Prescriptions: No Action levetiracetam [Keppra] 500 mg Tablet 1,000 mg PO Q12H 30 Days Qty: 120 0RF amlodipine 5 mg Tablet 5 mg PO DAILY Qty: 30 0RF lisinopril 10 mg Tablet 10 mg PO DAILY Qty: 30 0RF levetiracetam [Keppra] 500 mg tablet 1,000 mg PO Q12H Qty: 180 2RF amlodipine 5 mg tablet 5 mg PO DAILY Qty: 90 0RF lisinopril 10 mg tablet 10 mg PO BID Qty: 90 0RF levetiracetam 500 mg tablet 1,000 mg PO BID Qty: 180 0RF Referrals: Marianna Lan MD [Non-Staff] - Visit Report Forms: Patient Portal/API
[2022-03-25] MEDS: SODIUM CHLORIDE 0.9% 1,000 ML 1000 ML IV (11:02)
[2022-03-25 11:16] LABS: Add Manual Diff / Slide Review NO; Basophils Absolute Auto 0 /uL (0-100); Basophils Percent Auto 0.2 % (0-2); Eosinophils Absolute Auto 0 /uL (0-450); Eosinophils Percent Auto 0.1 % (2-4); Hematocrit 34.6 % (41-53); Hemoglobin 11.8 g/dL (13.5-17.5); Lymphocytes Absolute Auto 800 /uL (1100-4500); Lymphocytes Percent Auto 7.1 % (25-40); Mean Corpuscular Hemoglobin 32.7 PG (26-34); Mean Corpuscular Volume 96.2 fL (80-100); Monocytes Absolute Auto 900 /uL (0-900); Monocytes Percent Auto 7.3 % (3-14); Neutrophils Absolute Auto 10000 /uL (1500-7000); Neutrophils Percent Auto 85.3 % (50-75); Platelet Count 197 X10^3/uL (150-400); Red Blood Cell Count 3.59 X10^6/uL (4.5-5.9); Red Cell Distribution Width 14.9 % (11.6-14.8); White Blood Cell Count 11.8 X10^3/uL (4.5-11.0)
[2022-03-25 11:30] LABS: Alanine Aminotransferase 106 IU/L (<50); Albumin 4.8 g/dL (3.5-5.0); Albumin Globulin Ratio 1.3 (1.0-2.8); Alkaline Phosphatase 85 U/L (38-126); Aspartate Aminotransferase 165 IU/L (17-59); BUN Creatinine Ratio 11.5 (6-22); Bilirubin Total 0.8 mg/dL (0.2-1.3); Blood Urea Nitrogen 21 mg/dL (9-20); Calcium 9.6 mg/dL (8.4-10.2); Carbon Dioxide 18 mmol/L (22-32); Chloride 95 mmol/L (98-107); Estimated Glomerular Filt Rate 48 mL/min (>60); Ethanol (ETOH) < 10 mg/dL; Globulin 3.7 g/dL (1.7-4.1); Glucose 124 mg/dL (70-100); HEMOLYSIS < 15 (0-50); Potassium 4.2 mmol/L (3.4-5.1); Sodium 129 mmol/L (137-145); Total Protein 8.5 g/dL (6.3-8.2)
--- NOTE | 2022-03-25 12:40 | PC.NURSE ---
Pt up to bathroom with a steady gait
== END 2022-03-25 13:42 | disposition home or self-care (01) ==
PROVIDERS: Emergency Provider Emergency Medicine
DX: G40.909 Epilepsy, unspecified, not intractable, without status epilepticus (principal)
CPT/HCPCS: 36415; 80053; 80320; 85025; 96360; 96361; 99283; 99284

== ENCOUNTER 2022-05-11 17:34 | Emergency (ER) | payer OTHER, MEDICAID, SELFPAY ==
--- NOTE | 2022-05-11 16:37 | DI.RAD.S_ITS ---
PROCEDURE: XR CHEST 1V INDICATIONS: chest pain TECHNIQUE: One view of the chest was acquired. COMPARISON: None. FINDINGS: Surgical changes and devices: None. Lungs and pleura: Lungs are clear. No pleural effusions or pneumothorax. Mediastinum: Mediastinal contours appear normal. Heart size is normal. Bones and chest wall: No suspicious bony lesions. Overlying soft tissues appear unremarkable. IMPRESSION: No acute cardiopulmonary findings Approved by: Raul Solorzano M.D. on 05/11/2022 at 16:16
--- NOTE | 2022-05-11 16:37 | DI.CT.S_ITS ---
PROCEDURE: CT HEAD/BRAIN WO CON INDICATIONS: syncope TECHNIQUE: Noncontrast 4.5 mm thick angled axial sections acquired from the foramen magnum to the vertex, with coronal and sagittal reformats. For radiation dose reduction, the following was used: automated exposure control, adjustment of mA and/or kV according to patient size. COMPARISON: [facility], CT, CT HEAD/BRAIN WO CON, 08/04/2020, 22:25. [facility], CT, CT HEAD/BRAIN WO CON, 09/26/2020, 8:48. FINDINGS: Image quality: Excellent. CSF spaces: Basal cisterns are patent. No extra-axial fluid collections. Ventricles are normal in size and shape. Brain: No midline shift. No intracranial masses or hemorrhage. Saul-white matter interface is normal. Skull and face: Mild soft tissue scalp hematoma can be seen posteriorly and on the right, as on series 2 image 26 and on series 4, image 32. No associated calvarial fracture can be seen. Calvarium and visualized facial bones are intact, without suspicious lesions. Sinuses: Visualized sinuses and mastoids are clear. IMPRESSION: No acute intracranial process is seen. No acute intracranial hemorrhage is seen. Right posterior scalp hematoma, without an associated fracture. Dictated by: Santy Alonzo M.D. on 05/11/2022 at 15:49 Approved by: Santy Alonzo M.D. on 05/11/2022 at 15:51
[2022-05-11 16:50] LABS: Add Manual Diff / Slide Review NO; Basophils Absolute Auto 0 /uL (0-100); Basophils Percent Auto 0.6 % (0-2); Eosinophils Absolute Auto 100 /uL (0-450); Eosinophils Percent Auto 1.6 % (2-4); Hematocrit 34.7 % (41-53); Hemoglobin 11.9 g/dL (13.5-17.5); Lymphocytes Absolute Auto 1500 /uL (1100-4500); Lymphocytes Percent Auto 37.4 % (25-40); Mean Corpuscular HGB Conc 34.4 % (30-36); Mean Corpuscular Hemoglobin 34.1 PG (26-34); Mean Corpuscular Volume 99.2 fL (80-100); Monocytes Absolute Auto 500 /uL (0-900); Neutrophils Absolute Auto 1900 /uL (1500-7000); Neutrophils Percent Auto 48.4 % (50-75); Platelet Count 149 X10^3/uL (150-400); Red Cell Distribution Width 16.1 % (11.6-14.8); White Blood Cell Count 3.9 X10^3/uL (4.5-11.0)
[2022-05-11 16:52] LABS: INR 0.8 (0.9-1.3); Prothrombin Time 9.1 SECONDS (10.1-12.7)
[2022-05-11 16:54] LABS: D Dimer 1931 ng/ml (<500)
[2022-05-11 16:55] VITALS: BP 107/67; PULSE 68; RESP 20; TEMP 35.9; O2SAT 100; BMI 28.8
[2022-05-11 16:55] LABS: PTT Partial Thromboplastin Tim 25 SECONDS (26-36)
--- NOTE | 2022-05-11 16:58 | ED_ITS ---
HPI - Syncope <Gracie Goldstein, DO - Last Filed: 05/24/22 19:58> General Chief Complaint: Syncope Stated Complaint: Syncope Time Seen by Provider: 05/11/22 17:07 Source: patient Mode of arrival: Ambulatory Limitations: no limitations History of Present Illness HPI narrative: This is a 36-year-old male with known hypertension, seizure disorder and history of alcohol abuse. Patient was at a local [employer] restaurant at the bar and had an episode where he fell off his chair and was unconscious. No tonic-clonic activity was noted and bystanders did not appreciate any seizure-like activity. Patient was alert and oriented shortly thereafter. Medics state that he was hypotensive in the field this 60 seems to be responding to fluids and come up to the 90 range after 300 cc NS. Patient states he has felt unwell for the past couple days. He is just felt like his ?body is shrinking? he is had some nausea but no vomiting. He denies fevers or chills. He states his head hurts after hitting it any landed on his right shoulder, he thinks that he dislocated his shoulder but that he put it back in. States that he dislocates chronically. He denies any chest pain or pressure but states he can not feel himself breathing. Patient denies vomiting. He states he does sometimes have some blood in his stool which he relates to pushing hard when he has a bowel movement. He states no rectal pain. He notes some diarrhea but states it has been small amounts and not copious or frequent. He denies any abdominal pain, back or flank pain. Patient states he feels shaky right now. He states that he felt very dizzy afterwards and he is felt dizzy whenever he stands up for the past 4 days. Patient states he has been taking his amlodipine and Keppra regularly he states he ran out of his 3rd medication he is called several times to have it refilled he thinks it is lisinopril. No known drug allergies. Denies major surgeries. Denies tobacco was drinking a large amount of whiskey nightly until 4 months ago and states he is decreased to a beer in 2 or 3 shots nightly now. He does use marijuana but no illicit. Related Data Previous Rx's Medication Instructions Recorded amlodipine 5 mg tablet 5 mg PO DAILY #30 tabs 09/26/20 levetiracetam 500 mg tablet 1,000 mg PO Q12H 30 days #120 tabs 09/26/20 (Keppra) lisinopril 10 mg tablet 10 mg PO DAILY #30 tabs 09/26/20 amlodipine 5 mg tablet 5 mg PO DAILY #90 tabs 11/08/20 levetiracetam 500 mg tablet 1,000 mg PO BID #180 tabs 11/08/20 lisinopril 10 mg tablet 10 mg PO BID #90 tabs 11/08/20 levetiracetam 500 mg tablet 1,000 mg PO Q12H #180 tabs 01/01/21 (Keppra) Allergies Allergy/AdvReac Type Severity Reaction Status Date / Time No Known Drug Allergies Allergy Verified 01/02/21 15:23 Review of Systems <Gracie Goldstein DO - Last Filed: 05/24/22 19:58> Review of Systems ROS Unobtainable: All systems reviewed & are unremarkable except as noted in HPI and below Patient History <Gracie Goldstein DO - Last Filed: 05/24/22 19:58> Medical History Hypertension Seizures Social History Smoking Status: Current every day smoker Smoking Status: Current every day smoker alcohol intake frequency: 3 or more drinks per day Alcohol type: hard liquor Substance Use Type: marijuana and crack/cocaine Exam <Gracie Goldstein DO - Last Filed: 05/24/22 19:58> Narrative Exam Narrative: GEN: well nourished, well appearing male, alert and oriented x 3, patient appears to be in mild distress. HEENT: Atraumatic except for small hematoma on the right scalp, pupils are equal round reactive to light, extraocular movements are intact, nares are clear, TMs are clear with no fluid, there is no conjunctival pallor. Throat is clear without any exudates, erythema, tonsillar enlargement or uvular deviation, no facial droop. HEART: Regular rate and rhythm without murmur, clicks, rubs. pulses are equal in upper and lower extremities LUNGS:Lungs clear to auscultation, no wheezes, rales, crackles, chest moves symmetrically, no tachypnea or accessory muscle use ABD:bowel sounds normal, soft, non-tender, no guarding, rebound, rigidity, no masses noted, no hepatosplenomegaly :No CVA tenderness MSCL: Non-tender, no muscle atrophy, muscles strength 5/5 upper and lower extremities, full range of motion NEURO:CN 2-12 intact, sensation normal, normal range of motion. Mild tremor. Initial Vital Signs Initial Vital Signs: Vital Signs Temperature 96.6 F L 05/11/22 16:55 Pulse Rate 68 05/11/22 16:55 Respiratory Rate 20 05/11/22 16:55 Blood Pressure 107/67 05/11/22 16:55 Pulse Oximetry 100 05/11/22 16:55 Oxygen Delivery Method 05/11/22 16:55 <Sushant Naranjo DO - Last Filed: 05/12/22 14:34> Initial Vital Signs Initial Vital Signs: Vital Signs Temperature 96.6 F L 05/11/22 16:55 Pulse Rate 68 05/11/22 16:55 Respiratory Rate 20 05/11/22 16:55 Blood Pressure 107/67 05/11/22 16:55 Pulse Oximetry 100 05/11/22 16:55 Oxygen Delivery Method 05/11/22 16:55 Scores <Gracie Goldstein DO - Last Filed: 05/24/22 19:58> GCS Lucas coma scale eye opening: Spontaneous Lucas coma scale verbal response: Orientated Lucas coma scale motor response: Obey commands [place] coma scale total score: 15 <Sushant Naranjo DO - Last Filed: 05/12/22 14:34> GCS [place] coma scale total score: 15 Course <Gracie Goldstein DO - Last Filed: 05/24/22 19:58> Orders Ordered: Discontinued Medications Aspirin (Aspirin 81 Mg Chew Tab) 324 mg PO NOW ONE Stop: 05/11/22 16:38 Last Admin: 05/11/22 17:19 Dose: 324 mg Documented By: CORY Sodium Chloride (Normal Saline 0.9%) 1,000 mls @ 1,000 mls/hr IV BOLUS ONE Stop: 05/11/22 17:36 Last Infusion: 05/11/22 20:04 Dose: 0 mls/hr Documented By: Admin: 05/11/22 17:18 Dose: 1,000 mls/hr Documented By: OW Sodium Chloride (Normal Saline 0.9%) 1,000 mls @ 1,000 mls/hr IV BOLUS ONE Stop: 05/11/22 18:11 Last Infusion: 05/11/22 20:04 Dose: 0 mls/hr Documented By: Admin: 05/11/22 17:19 Dose: 1,000 mls/hr Documented By: OW Vital Signs Vital signs: Vital Signs - 8 hr 05/11/22 16:55 05/11/22 19:00 Temperature 96.6 F L Pulse Rate 68 108 H Respiratory Rate 20 20 Blood Pressure 107/67 109/72 Pulse Oximetry 100 100 Oxygen Delivery Method Room Air Room Air <Sushant Naranjo DO - Last Filed: 05/12/22 14:34> Orders Ordered: Discontinued Medications Aspirin (Aspirin 81 Mg Chew Tab) 324 mg PO NOW ONE Stop: 05/11/22 16:38 Last Admin: 05/11/22 17:19 Dose: 324 mg Documented By: OW Sodium Chloride (Normal Saline 0.9%) 1,000 mls @ 1,000 mls/hr IV BOLUS ONE Stop: 05/11/22 17:36 Last Infusion: 05/11/22 20:04 Dose: 0 mls/hr Documented By: Admin: 05/11/22 17:18 Dose: 1,000 mls/hr Documented By: OW Sodium Chloride (Normal Saline 0.9%) 1,000 mls @ 1,000 mls/hr IV BOLUS ONE Stop: 05/11/22 18:11 Last Infusion: 05/11/22 20:04 Dose: 0 mls/hr Documented By: Admin: 05/11/22 17:19 Dose: 1,000 mls/hr Documented By: OW Vital Signs Vital signs: Vital Signs - 8 hr 05/11/22 16:55 05/11/22 19:00 Temperature 96.6 F L Pulse Rate 68 108 H Respiratory Rate 20 20 Blood Pressure 107/67 109/72 Pulse Oximetry 100 100 Oxygen Delivery Method Room Air Room Air MDM - Syncope <Gracie Goldstein DO - Last Filed: 05/24/22 19:58> Lab Data Result diagrams: 05/11/22 16:46 05/11/22 16:46 Labs: Lab Results 05/11/22 05/11/22 05/11/22 Range/Units 16:46 16:46 16:46 WBC 3.9 L (4.5-11.0) X10^3/uL RBC 3.50 L (4.5-5.9) X10^6/uL Hgb 11.9 L (13.5-17.5) g/dL Hct 34.7 L (41-53) % MCV 99.2 (80-100) fL MCH 34.1 H (26-34) PG MCHC 34.4 (30-36) % RDW 16.1 H (11.6-14.8) % Plt Count 149 L (150-400) X10^3/uL Neut % (Auto) 48.4 L (50-75) % Lymph % (Auto) 37.4 (25-40) % Buchanan % (Auto) 12.0 (3-14) % Eos % (Auto) 1.6 L (2-4) % Baso % (Auto) 0.6 (0-2) % Neut # (Auto) 1900 (7405-4416) /uL Lymph # (Auto) 1500 (7742-4862) /uL Buchanan # (Auto) 500 (0-900) /uL Eos # (Auto) 100 (0-450) /uL Baso # (Auto) 0 (0-100) /uL PT 9.1 L (10.1-12.7) SECONDS INR 0.8 L (0.9-1.3) APTT 25 L (26-36) SECONDS D-Dimer 1931 H (<500) ng/ml Sodium 127 L (137-145) mmol/L Potassium 4.2 (3.4-5.1) mmol/L Chloride 88 L (98-107) mmol/L Carbon Dioxide 25 (22-32) mmol/L BUN 13 (9-20) mg/dL Creatinine 1.25 (0.66-1.25) mg/dL Estimated GFR > 60 (>60) mL/min BUN/Creatinine Ratio 10.4 (6-22) Glucose 142 H (70-100) mg/dL Calcium 9.2 (8.4-10.2) mg/dL Total Bilirubin 0.7 (0.2-1.3) mg/dL AST 279 H (17-59) IU/L ALT 177 H (<50) IU/L Alkaline Phosphatase 87 (38-126) U/L Total Creatine Kinase 212 H (55-170) U/L CK-MB (CK-2) 2.66 H (<2.37) ng/mL CK-MB (CK-2) Rel Index 1.3 L (1.5-5.0) % Troponin I < 0.012 (0.01-0.034) ng/mL NT-Pro-B Natriuret Pep (<125) pg/mL Total Protein 8.4 H (6.3-8.2) g/dL Albumin 4.7 (3.5-5.0) g/dL Globulin 3.7 (1.7-4.1) g/dL Albumin/Globulin Ratio 1.3 (1.0-2.8) Lipase 505 H (23-300) U/L U Opiates 300ng/mL cut (Negative) Ur Oxycodone Screen (Negative) Urine Methadone Screen (Negative) Ur Barbiturates Screen (Negative) U Tricyclic Antidepress (Negative) Levetiracetam (10.0-40.0) ug/mL Ur Phencyclidine Scrn (Negative) Ur Amphetamines Screen (Negative) U Methamphetamines Scrn (Negative) Ur MDMA Scrn (Ecstasy) (Negative) U Benzodiazepines Scrn (Negative) Urine Cocaine Screen (Negative) U Marijuana (THC) Screen (Negative) Ethyl Alcohol ( - 10) mg/dL 05/11/22 05/11/22 05/11/22 Range/Units 16:46 16:46 16:46 WBC (4.5-11.0) X10^3/uL RBC (4.5-5.9) X10^6/uL Hgb (13.5-17.5) g/dL Hct (41-53) % MCV (80-100) fL MCH (26-34) PG MCHC (30-36) % RDW (11.6-14.8) % Plt Count (150-400) X10^3/uL Neut % (Auto) (50-75) % Lymph % (Auto) (25-40) % Buchanan % (Auto) (3-14) % Eos % (Auto) (2-4) % Baso % (Auto) (0-2) % Neut # (Auto) (6010-1736) /uL Lymph # (Auto) (7662-1100) /uL Buchanan # (Auto) (0-900) /uL Eos # (Auto) (0-450) /uL Baso # (Auto) (0-100) /uL PT (10.1-12.7) SECONDS INR (0.9-1.3) APTT (26-36) SECONDS D-Dimer (<500) ng/ml Sodium (137-145) mmol/L Potassium (3.4-5.1) mmol/L Chloride (98-107) mmol/L Carbon Dioxide (22-32) mmol/L BUN (9-20) mg/dL Creatinine (0.66-1.25) mg/dL Estimated GFR (>60) mL/min BUN/Creatinine Ratio (6-22) Glucose (70-100) mg/dL Calcium (8.4-10.2) mg/dL Total Bilirubin (0.2-1.3) mg/dL AST (17-59) IU/L ALT (<50) IU/L Alkaline Phosphatase (38-126) U/L Total Creatine Kinase (55-170) U/L CK-MB (CK-2) (<2.37) ng/mL CK-MB (CK-2) Rel Index (1.5-5.0) % Troponin I (0.01-0.034) ng/mL NT-Pro-B Natriuret Pep 19 (<125) pg/mL Total Protein (6.3-8.2) g/dL Albumin (3.5-5.0) g/dL Globulin (1.7-4.1) g/dL Albumin/Globulin Ratio (1.0-2.8) Lipase (23-300) U/L U Opiates 300ng/mL cut (Negative) Ur Oxycodone Screen (Negative) Urine Methadone Screen (Negative) Ur Barbiturates Screen (Negative) U Tricyclic Antidepress (Negative) Levetiracetam 24.9 (10.0-40.0) ug/mL Ur Phencyclidine Scrn (Negative) Ur Amphetamines Screen (Negative) U Methamphetamines Scrn (Negative) Ur MDMA Scrn (Ecstasy) (Negative) U Benzodiazepines Scrn (Negative) Urine Cocaine Screen (Negative) U Marijuana (THC) Screen (Negative) Ethyl Alcohol 329 H ( - 10) mg/dL 05/11/22 Range/Units 19:45 WBC (4.5-11.0) X10^3/uL RBC (4.5-5.9) X10^6/uL Hgb (13.5-17.5) g/dL Hct (41-53) % MCV (80-100) fL MCH (26-34) PG MCHC (30-36) % RDW (11.6-14.8) % Plt Count (150-400) X10^3/uL Neut % (Auto) (50-75) % Lymph % (Auto) (25-40) % Buchanan % (Auto) (3-14) % Eos % (Auto) (2-4) % Baso % (Auto) (0-2) % Neut # (Auto) (8908-7261) /uL Lymph # (Auto) (0850-4105) /uL Buchanan # (Auto) (0-900) /uL Eos # (Auto) (0-450) /uL Baso # (Auto) (0-100) /uL PT (10.1-12.7) SECONDS INR (0.9-1.3) APTT (26-36) SECONDS D-Dimer (<500) ng/ml Sodium (137-145) mmol/L Potassium (3.4-5.1) mmol/L Chloride (98-107) mmol/L Carbon Dioxide (22-32) mmol/L BUN (9-20) mg/dL Creatinine (0.66-1.25) mg/dL Estimated GFR (>60) mL/min BUN/Creatinine Ratio (6-22) Glucose (70-100) mg/dL Calcium (8.4-10.2) mg/dL Total Bilirubin (0.2-1.3) mg/dL AST (17-59) IU/L ALT (<50) IU/L Alkaline Phosphatase (38-126) U/L Total Creatine Kinase (55-170) U/L CK-MB (CK-2) (<2.37) ng/mL CK-MB (CK-2) Rel Index (1.5-5.0) % Troponin I (0.01-0.034) ng/mL NT-Pro-B Natriuret Pep (<125) pg/mL Total Protein (6.3-8.2) g/dL Albumin (3.5-5.0) g/dL Globulin (1.7-4.1) g/dL Albumin/Globulin Ratio (1.0-2.8) Lipase (23-300) U/L U Opiates 300ng/mL cut Negative (Negative) Ur Oxycodone Screen Negative (Negative) Urine Methadone Screen Negative (Negative) Ur Barbiturates Screen Negative (Negative) U Tricyclic Antidepress Negative (Negative) Levetiracetam (10.0-40.0) ug/mL Ur Phencyclidine Scrn Negative (Negative) Ur Amphetamines Screen Negative (Negative) U Methamphetamines Scrn Negative (Negative) Ur MDMA Scrn (Ecstasy) Negative (Negative) U Benzodiazepines Scrn Negative (Negative) Urine Cocaine Screen Negative (Negative) U Marijuana (THC) Screen Positive H (Negative) Ethyl Alcohol ( - 10) mg/dL Point of Care Testing Glucose POC [address] scan - head: Radiologist's Impression: [address] [address] [address] Scan Report Signed Patient: Cong Luther MR#: [id number] : 1985 Acct:[id number] Age/Sex: 36 / M Date of Service: 05/11/22 Loc: ED Accession Number: [id number] ?? Procedure: CT head/brain wo con Ordering Provider: Gracie Goldstein D.O. PROCEDURE:? CT HEAD/BRAIN WO CON ? INDICATIONS:? syncope ? TECHNIQUE:? Noncontrast 4.5 mm thick angled axial sections acquired from the foramen magnum to the vertex, with coronal and sagittal reformats.? For radiation dose reduction, the following was used:? automated exposure control, adjustment of mA and/or kV according to patient size.? ? COMPARISON:? [facility], CT, CT HEAD/BRAIN WO CON, 08/04/2020, 22:25.? [facility], CT, CT HEAD/BRAIN WO CON, 09/26/2020, 8:48. ? FINDINGS:? Image quality:? Excellent.? ? CSF spaces:? Basal cisterns are patent.? No extra-axial fluid collections.? Ventricles are normal in size and shape.? ? Brain:? No midline shift.? No intracranial masses or hemorrhage.? Saul-white matter interface is normal.? ? Skull and face:? Mild soft tissue scalp hematoma can be seen posteriorly and on the right, as on series 2 image 26 and on series 4, image 32.? No associated calvarial fracture can be seen.? Calvarium and visualized facial bones are intact, without suspicious lesions.? ? Sinuses:? Visualized sinuses and mastoids are clear.? IMPRESSION:? ? No acute intracranial process is seen.? ? No acute intracranial hemorrhage is seen.? ? Right posterior scalp hematoma, without an associated fracture.? ? Dictated by: Santy Alonzo M.D. on 05/11/2022 at 15:49 ? ? Approved by: Santy Alonzo M.D. on 05/11/2022 at 15:51?? ECG Data Attestation: I personally reviewed and interpreted this ECG as follows: MDM Narrative Medical decision making narrative: This is a 1 year old male with history of seizure disorder and hypertension who had will by description is more likely a syncopal episode and was hypotensive in the field and here although improving with fluids. <Sushant Naranjo, DO - Last Filed: 05/12/22 14:34> Lab Data Labs: Lab Results 05/11/22 05/11/22 05/11/22 Range/Units 16:46 16:46 16:46 WBC 3.9 L (4.5-11.0) X10^3/uL RBC 3.50 L (4.5-5.9) X10^6/uL Hgb 11.9 L (13.5-17.5) g/dL Hct 34.7 L (41-53) % MCV 99.2 (80-100) fL MCH 34.1 H (26-34) PG MCHC 34.4 (30-36) % RDW 16.1 H (11.6-14.8) % Plt Count 149 L (150-400) X10^3/uL Neut % (Auto) 48.4 L (50-75) % Lymph % (Auto) 37.4 (25-40) % Buchanan % (Auto) 12.0 (3-14) % Eos % (Auto) 1.6 L (2-4) % Baso % (Auto) 0.6 (0-2) % Neut # (Auto) 1900 (4480-1610) /uL Lymph # (Auto) 1500 (5205-1926) /uL Buchanan # (Auto) 500 (0-900) /uL Eos # (Auto) 100 (0-450) /uL Baso # (Auto) 0 (0-100) /uL PT 9.1 L (10.1-12.7) SECONDS INR 0.8 L (0.9-1.3) APTT 25 L (26-36) SECONDS D-Dimer 1931 H (<500) ng/ml Sodium 127 L (137-145) mmol/L Potassium 4.2 (3.4-5.1) mmol/L Chloride 88 L (98-107) mmol/L Carbon Dioxide 25 (22-32) mmol/L BUN 13 (9-20) mg/dL Creatinine 1.25 (0.66-1.25) mg/dL Estimated GFR > 60 (>60) mL/min BUN/Creatinine Ratio 10.4 (6-22) Glucose 142 H (70-100) mg/dL Calcium 9.2 (8.4-10.2) mg/dL Total Bilirubin 0.7 (0.2-1.3) mg/dL AST 279 H (17-59) IU/L ALT 177 H (<50) IU/L Alkaline Phosphatase 87 (38-126) U/L Total Creatine Kinase 212 H (55-170) U/L CK-MB (CK-2) 2.66 H (<2.37) ng/mL CK-MB (CK-2) Rel Index 1.3 L (1.5-5.0) % Troponin I < 0.012 (0.01-0.034) ng/mL NT-Pro-B Natriuret Pep (<125) pg/mL Total Protein 8.4 H (6.3-8.2) g/dL Albumin 4.7 (3.5-5.0) g/dL Globulin 3.7 (1.7-4.1) g/dL Albumin/Globulin Ratio 1.3 (1.0-2.8) Lipase 505 H (23-300) U/L U Opiates 300ng/mL cut (Negative) Ur Oxycodone Screen (Negative) Urine Methadone Screen (Negative) Ur Barbiturates Screen (Negative) U Tricyclic Antidepress (Negative) Levetiracetam (10.0-40.0) ug/mL Ur Phencyclidine Scrn (Negative) Ur Amphetamines Screen (Negative) U Methamphetamines Scrn (Negative) Ur MDMA Scrn (Ecstasy) (Negative) U Benzodiazepines Scrn (Negative) Urine Cocaine Screen (Negative) U Marijuana (THC) Screen (Negative) Ethyl Alcohol ( - 10) mg/dL 05/11/22 05/11/22 05/11/22 Range/Units 16:46 16:46 16:46 WBC (4.5-11.0) X10^3/uL RBC (4.5-5.9) X10^6/uL Hgb (13.5-17.5) g/dL Hct (41-53) % MCV (80-100) fL MCH (26-34) PG MCHC (30-36) % RDW (11.6-14.8) % Plt Count (150-400) X10^3/uL Neut % (Auto) (50-75) % Lymph % (Auto) (25-40) % Buchanan % (Auto) (3-14) % Eos % (Auto) (2-4) % Baso % (Auto) (0-2) % Neut # (Auto) (5932-6774) /uL Lymph # (Auto) (7182-6042) /uL Buchanan # (Auto) (0-900) /uL Eos # (Auto) (0-450) /uL Baso # (Auto) (0-100) /uL PT (10.1-12.7) SECONDS INR (0.9-1.3) APTT (26-36) SECONDS D-Dimer (<500) ng/ml Sodium (137-145) mmol/L Potassium (3.4-5.1) mmol/L Chloride (98-107) mmol/L Carbon Dioxide (22-32) mmol/L BUN (9-20) mg/dL Creatinine (0.66-1.25) mg/dL Estimated GFR (>60) mL/min BUN/Creatinine Ratio (6-22) Glucose (70-100) mg/dL Calcium (8.4-10.2) mg/dL Total Bilirubin (0.2-1.3) mg/dL AST (17-59) IU/L ALT (<50) IU/L Alkaline Phosphatase (38-126) U/L Total Creatine Kinase (55-170) U/L CK-MB (CK-2) (<2.37) ng/mL CK-MB (CK-2) Rel Index (1.5-5.0) % Troponin I (0.01-0.034) ng/mL NT-Pro-B Natriuret Pep 19 (<125) pg/mL Total Protein (6.3-8.2) g/dL Albumin (3.5-5.0) g/dL Globulin (1.7-4.1) g/dL Albumin/Globulin Ratio (1.0-2.8) Lipase (23-300) U/L U Opiates 300ng/mL cut (Negative) Ur Oxycodone Screen (Negative) Urine Methadone Screen (Negative) Ur Barbiturates Screen (Negative) U Tricyclic Antidepress (Negative) Levetiracetam 24.9 (10.0-40.0) ug/mL Ur Phencyclidine Scrn (Negative) Ur Amphetamines Screen (Negative) U Methamphetamines Scrn (Negative) Ur MDMA Scrn (Ecstasy) (Negative) U Benzodiazepines Scrn (Negative) Urine Cocaine Screen (Negative) U Marijuana (THC) Screen (Negative) Ethyl Alcohol 329 H ( - 10) mg/dL 05/11/22 Range/Units 19:45 WBC (4.5-11.0) X10^3/uL RBC (4.5-5.9) X10^6/uL Hgb (13.5-17.5) g/dL Hct (41-53) % MCV (80-100) fL MCH (26-34) PG MCHC (30-36) % RDW (11.6-14.8) % Plt Count (150-400) X10^3/uL Neut % (Auto) (50-75) % Lymph % (Auto) (25-40) % Buchanan % (Auto) (3-14) % Eos % (Auto) (2-4) % Baso % (Auto) (0-2) % Neut # (Auto) (9333-7559) /uL Lymph # (Auto) (8679-1284) /uL Buchanan # (Auto) (0-900) /uL Eos # (Auto) (0-450) /uL Baso # (Auto) (0-100) /uL PT (10.1-12.7) SECONDS INR (0.9-1.3) APTT (26-36) SECONDS D-Dimer (<500) ng/ml Sodium (137-145) mmol/L Potassium (3.4-5.1) mmol/L Chloride (98-107) mmol/L Carbon Dioxide (22-32) mmol/L BUN (9-20) mg/dL Creatinine (0.66-1.25) mg/dL Estimated GFR (>60) mL/min BUN/Creatinine Ratio (6-22) Glucose (70-100) mg/dL Calcium (8.4-10.2) mg/dL Total Bilirubin (0.2-1.3) mg/dL AST (17-59) IU/L ALT (<50) IU/L Alkaline Phosphatase (38-126) U/L Total Creatine Kinase (55-170) U/L CK-MB (CK-2) (<2.37) ng/mL CK-MB (CK-2) Rel Index (1.5-5.0) % Troponin I (0.01-0.034) ng/mL NT-Pro-B Natriuret Pep (<125) pg/mL Total Protein (6.3-8.2) g/dL Albumin (3.5-5.0) g/dL Globulin (1.7-4.1) g/dL Albumin/Globulin Ratio (1.0-2.8) Lipase (23-300) U/L U Opiates 300ng/mL cut Negative (Negative) Ur Oxycodone Screen Negative (Negative) Urine Methadone Screen Negative (Negative) Ur Barbiturates Screen Negative (Negative) U Tricyclic Antidepress Negative (Negative) Levetiracetam (10.0-40.0) ug/mL Ur Phencyclidine Scrn Negative (Negative) Ur Amphetamines Screen Negative (Negative) U Methamphetamines Scrn Negative (Negative) Ur MDMA Scrn (Ecstasy) Negative (Negative) U Benzodiazepines Scrn Negative (Negative) Urine Cocaine Screen Negative (Negative) U Marijuana (THC) Screen Positive H (Negative) Ethyl Alcohol ( - 10) mg/dL Point of Care Testing Glucose POC [address] scan - chest: Radiologist's Impression: [address] [address] [address] Scan Report Signed Patient: Cong Luther MR#: [id number] : 1985 Acct:[id number] Age/Sex: 36 / M Date of Service: 05/11/22 Loc: ED Accession Number: [id number] ?? Procedure: CT angio chest PE protocol Ordering Provider: Gracie Goldstein D.O. PROCEDURE:? CT ANGIO CHEST PE PROTOCOL ? INDICATIONS:? syncope, elevated dimer ? TECHNIQUE:? After the administration of intravenous contrast, 2 mm thick sections acquired from the pulmonary apices to the posterior costophrenic angles.? 3-dimensional maximum intensity projection (MIP) coronal and sagittal reformats were then acquired through the thorax.? For radiation dose reduction, the following was used:? automated exposure contro l, adjustment of mA and/or kV according to patient size.? ? COMPARISON:? None. ? FINDINGS:? Image quality:? Excellent.? ? Pulmonary arteries:? Pulmonary arteries are normal in size, and demonstrate no intraluminal filling defects to suggest central pulmonary embolism.? ? Lungs and pleura:? Lungs are clear.? No pleural effusions or pneumothorax.? Central and peripheral airways are patent.? ? Mediastinum:? Heart size is normal, without pericardial effusion.? No mediastinal or hilar adenopathy.? Thoracic aorta is normal in caliber and enhancement.? Esophagus is normal in caliber, without hiatal hernia.? ? Bones and chest wall:? No suspicious bony lesions.? Ribs and thoracic spine appear intact throughout.? Thyroid gland is normal.? No axillary or supraclavicular adenopathy.? ? Abdomen:? Visualized upper abdominal solid organs appear normal in the early arterial phase of enhancement.? The liver demonstrates hepatic steatosis. ? IMPRESSION:? 1. No pulmonary embolism. 2. No acute abnormality of the chest.? ? ? Dictated by: Abram White M.D. on 05/11/2022 at 19:57 ? ? Approved by: Abram White M.D. on 05/11/2022 at 20:00 ? MDM Narrative Medical decision making narrative: This is a 36 year old male with history of seizure disorder and hypertension who had will by description is more likely a syncopal episode and was hypotensive in the field and here although improving with fluids. [1900] (Jose A) Patient received in sign out from Dr. Dahl]. I have reviewed the clinical course and performed an independent history and physical exam. 2244 -patient is speaking clearly, alert and oriented x3, GCS 15, walking a straight line in ambulating without difficulty. He is had extensive workup in returned to baseline. Multiple diagnoses considered including seizure versus syncope versus other with most likely diagnosis being hypertensive syncope given response to fluids and reassuring history, physical exam and diagnostics. Patient given return precautions and questions answered to his apparent satisf action Discharge Plan Departure Patient Disposition: Home Clinical Impression: Syncope, Alcohol abuse, Hyponatremia Instructions: DI for Syncope in Adults (Fainting) Activity Restrictions/Additional Instructions: There is no evidence of an emergent or life threatening illness at this time, but follow up with your doctor in 1-2 days is recommended nonetheless to continue to rule out serious underlying causes of your symptoms. Please call the office for an appointment. Please return to the Emergency Department for any worsening or persistent symptoms. Please take medications as directed. Prescriptions: No Action levetiracetam [Keppra] 500 mg Tablet 1,000 mg PO Q12H 30 Days Qty: 120 0RF amlodipine 5 mg Tablet 5 mg PO DAILY Qty: 30 0RF lisinopril 10 mg Tablet 10 mg PO DAILY Qty: 30 0RF levetiracetam [Keppra] 500 mg tablet 1,000 mg PO Q12H Qty: 180 2RF amlodipine 5 mg tablet 5 mg PO DAILY Qty: 90 0RF lisinopril 10 mg tablet 10 mg PO BID Qty: 90 0RF levetiracetam 500 mg tablet 1,000 mg PO BID Qty: 180 0RF Visit Report Forms: Patient Portal/API
[2022-05-11 17:04] LABS: Alanine Aminotransferase 177 IU/L (<50); Albumin 4.7 g/dL (3.5-5.0); Albumin Globulin Ratio 1.3 (1.0-2.8); Alkaline Phosphatase 87 U/L (38-126); Aspartate Aminotransferase 279 IU/L (17-59); BUN Creatinine Ratio 10.4 (6-22); Bilirubin Total 0.7 mg/dL (0.2-1.3); Blood Urea Nitrogen 13 mg/dL (9-20); Calcium 9.2 mg/dL (8.4-10.2); Carbon Dioxide 25 mmol/L (22-32); Chloride 88 mmol/L (98-107); Creatine Kinase 212 U/L (55-170); Estimated Glomerular Filt Rate > 60 mL/min (>60); Globulin 3.7 g/dL (1.7-4.1); Glucose 142 mg/dL (70-100); HEMOLYSIS < 15 (0-50); Lipase 505 U/L (23-300); Potassium 4.2 mmol/L (3.4-5.1); Sodium 127 mmol/L (137-145); Total Protein 8.4 g/dL (6.3-8.2)
--- NOTE | 2022-05-11 17:06 | DI.RAD.S_ITS ---
PROCEDURE: XR SHOULDER RT MIN 2V INDICATIONS: right shoulder pain, pt thinks he put back in. TECHNIQUE: 3 views of the shoulder were acquired. COMPARISON: [facility], CR, XR SHOULDER LT MIN 2V, 01/02/2021, 15:23. [facility], CR, XR SHOULDER RT MIN 2V, 01/02/2021, 15:22. FINDINGS: Bones: No fractures or dislocations. No suspicious bony lesions. Visualized ribs appear intact. Soft tissues: No suspicious soft tissue calcifications. IMPRESSION: Normal right shoulder Dictated by: Abram White M.D. on 05/11/2022 at 18:13 Approved by: Abram White M.D. on 05/11/2022 at 18:14
[2022-05-11 17:11] LABS: NT-proBNP (BNP-Adult 18+) 19 pg/mL (<125)
[2022-05-11 17:14] LABS: Troponin I < 0.012 ng/mL (0.01-0.034)
[2022-05-11] MEDS: SODIUM CHLORIDE 0.9% 1,000 ML 1000 ML IV ×2 (17:18→17:19)
[2022-05-11 17:19] LABS: CKMB % Relative Index 1.3 % (1.5-5.0); Creatine Kinase MB 2.66 ng/mL (<2.37)
[2022-05-11] MEDS: ASPIRIN 81 MG CHEW TAB 324 MG PO (17:19)
[2022-05-11 17:39] LABS: Ethanol (ETOH) 329 mg/dL
--- NOTE | 2022-05-11 18:41 | DI.CT.S_ITS ---
PROCEDURE: CT ANGIO CHEST PE PROTOCOL INDICATIONS: syncope, elevated dimer TECHNIQUE: After the administration of intravenous contrast, 2 mm thick sections acquired from the pulmonary apices to the posterior costophrenic angles. 3-dimensional maximum intensity projection (MIP) coronal and sagittal reformats were then acquired through the thorax. For radiation dose reduction, the following was used: automated exposure control, adjustment of mA and/or kV according to patient size. COMPARISON: None. FINDINGS: Image quality: Excellent. Pulmonary arteries: Pulmonary arteries are normal in size, and demonstrate no intraluminal filling defects to suggest central pulmonary embolism. Lungs and pleura: Lungs are clear. No pleural effusions or pneumothorax. Central and peripheral airways are patent. Mediastinum: Heart size is normal, without pericardial effusion. No mediastinal or hilar adenopathy. Thoracic aorta is normal in caliber and enhancement. Esophagus is normal in caliber, without hiatal hernia. Bones and chest wall: No suspicious bony lesions. Ribs and thoracic spine appear intact throughout. Thyroid gland is normal. No axillary or supraclavicular adenopathy. Abdomen: Visualized upper abdominal solid organs appear normal in the early arterial phase of enhancement. The liver demonstrates hepatic steatosis. IMPRESSION: 1. No pulmonary embolism. 2. No acute abnormality of the chest. Dictated by: Abram White M.D. on 05/11/2022 at 19:57 Approved by: Abram White M.D. on 05/11/2022 at 20:00
[2022-05-11 19:00] VITALS: BP 109/72; PULSE 108; RESP 20; O2SAT 100
[2022-05-11 21:10] LABS: UR Morphine/Opiate cutoff 300 Negative (Negative); Ur Creatinine 20 (Normal); Ur Specific Gravity 1.015 (Normal); Urine Amphetamines Negative (Negative); Urine Barbiturates Negative (Negative); Urine Benzodiazepines Negative (Negative); Urine Cocaine Negative (Negative); Urine MDMA Negative (Negative); Urine Methadone Negative (Negative); Urine Methamphetamines Negative (Negative); Urine Oxycodone Negative (Negative); Urine Phencyclidine Negative (Negative); Urine Tetrahydrocannabinol Positive (Negative); Urine Tricyclic Antidepressant Negative (Negative); Urine pH 4 (Normal)
[2022-05-11 22:58] VITALS: BP 121/70; PULSE 86; RESP 20; O2SAT 100
[2022-05-16 14:34] LABS: Levetiracetam Keppra 24.9 ug/mL (10.0-40.0)
== END 2022-05-11 23:00 | disposition home or self-care (01) ==
PROVIDERS: Emergency Medicine; Emergency Provider Emergency Medicine
DX: R55 Syncope and collapse (principal); F10.10 Alcohol abuse, uncomplicated; E87.1 Hypo-osmolality and hyponatremia
CPT/HCPCS: 70450; 71045; 71275; 73030; 80053; 80177; 80305; 80320; 82550; 82553; 83690; 83880; 84484; 85025; 85379; 85610; 85730; 93005; 96360; 96361; 99284; Q9967

== ENCOUNTER 2022-07-21 21:43 | Emergency (ER) | payer OTHER, MEDICAID, SELFPAY ==
[2022-07-21 21:54] VITALS: BP 123/93; PULSE 72; RESP 18; TEMP 36.6; O2SAT 100
--- NOTE | 2022-07-21 22:06 | ED_ITS ---
HPI - Recheck/Abnormal Lab/Rx General Chief Complaint: Recheck/Abnormal Lab/Rx Stated Complaint: needs medication Time Seen by Provider: 07/21/22 21:45 Source: patient and other Mode of arrival: Ambulatory History of Present Illness HPI narrative: 36-year-old male smoker, drinker, history of hypertension and seizures presents with a friend and is hoping to get a dose of his medications. He states that he has been having trouble having his prescriptions filled and is unable to take his medications today and is concerned because he has not had his seizure medications. He is had no fever chills. He denies any headache or blurred vis ion. He has no chest pain or shortness of breath. He is otherwise well and free of complaint. He states that his prescriptions are likely at the pharmacy the hopes to pick them up tomorrow. Related Data Previous Rx's Medication Instructions Recorded amlodipine 5 mg tablet 5 mg PO DAILY #30 tabs 09/26/20 levetiracetam 500 mg tablet 1,000 mg PO Q12H 30 days #120 tabs 09/26/20 (Keppra) lisinopril 10 mg tablet 10 mg PO DAILY #30 tabs 09/26/20 amlodipine 5 mg tablet 5 mg PO DAILY #90 tabs 11/08/20 levetiracetam 500 mg tablet 1,000 mg PO BID #180 tabs 11/08/20 lisinopril 10 mg tablet 10 mg PO BID #90 tabs 11/08/20 levetiracetam 500 mg tablet 1,000 mg PO Q12H #180 tabs 01/01/21 (Keppra) amlodipine 5 mg tablet 5 mg PO DAILY #30 tabs 07/21/22 levetiracetam 1,000 mg tablet 1,000 mg PO BID #60 tabs 07/21/22 (Keppra) lisinopril 10 mg tablet 10 mg PO DAILY #30 tabs 07/21/22 Allergies Allergy/AdvReac Type Severity Reaction Status Date / Time No Known Drug Allergies Allergy Verified 01/02/21 15:23 Review of Systems Review of Systems Narrative: GENERAL: Denies chills, fatigue, malaise, fever, sweats. HEENT: Denies sinus pain, ear pain, sore throat, difficulty swallowing, dizziness. RESPIRATORY: Denies dyspnea, cough, wheezing, hemoptysis, sputum. CARDIOVASCULAR: Denies chest pain, palpitations, orthopnea, edema, GASTROINTESTINAL: Denies nausea, vomiting, abdominal pain, diarrhea, constipation, melena. : Denies dysuria, frequency, incontinence, hematuria, urinary retention. MUSCULOSKELETAL: denies weakness, joint pain, or bony pain SKIN: Denies rash, skin lesions, or other NEUROLOGIC: Denies weakness, headache, numbness, change in speech, confusion, seizures, incoordination. PSYCHIATRIC: No concerning psychosocial issues. 12 point review of systems is negative except for those stated above Patient History Medical History Hypertension Seizures Social History Smoking Status: Current every day smoker Smoking Status: Current every day smoker alcohol intake frequency: 3 or more drinks per day Alcohol type: hard liquor Substance Use Type: marijuana Exam Narrative Exam Narrative: GEN: AOx3 and in mild distress EYES: Pupils are equal, round, and reactive to light and accommodation. Extraoccular muscles are intact bilaterally. There is no subconjunctival hemorrhage or exudate. CHEST: Lungs are clear to auscultation bilaterally and free of wheezes, rales, or rhonchi. Heart rate is regular rhythm, there are no murmurs, clicks, rubs, or gallops. There is no chest wall tenderness. ABD: Abdomen is soft and nontender. There is no guarding or rebound. Bowel sounds are normal in all 4 quadrants. There is no mass or organomegaly. EXT: Full painless ROM of all extremities with no loss of sensation or strength. SKIN: Warm, pink, and dry. No erythema or rash Initial Vital Signs Initial Vital Signs: Vital Signs Temperature 98 F 07/21/22 21:54 Pulse Rate 72 07/21/22 21:54 Respiratory Rate 18 07/21/22 21:54 Blood Pressure 123/93 H 07/21/22 21:54 Pulse Oximetry 100 07/21/22 21:54 Oxygen Delivery Method 07/21/22 21:54 Course Orders Ordered: Discontinued Medications Amlodipine Besylate (Amlodipine 5 Mg Tablet) 5 mg PO NOW ONE Stop: 07/21/22 22:13 Last Admin: 07/21/22 22:20 Dose: 5 mg Documented By: MION Levetiracetam (Levetiracetam 250 Mg Tablet) 1,000 mg PO NOW ONE Stop: 07/21/22 22:13 Last Admin: 07/21/22 22:20 Dose: 1,000 mg Documented By: MINO Lisinopril (Lisinopril 10 Mg Tablet) 10 mg PO NOW ONE Stop: 07/21/22 22:13 Last Admin: 07/21/22 22:21 Dose: Not Given Documented By: MINO Vital Signs Vital signs: Vital Signs - 8 hr 07/21/22 21:54 Temperature 98 F Pulse Rate 72 Respiratory Rate 18 Blood Pressure 123/93 H Pulse Oximetry 100 Oxygen Delivery Method Room Air Discharge Plan Departure Patient Disposition: Home Clinical Impression: Feared complaint without diagnosis, Encounter for medication refill Activity Restrictions/Additional Instructions: *You have been diagnosed with [medication refill ] *What to do: *Please continue to take your regular medications as directed. [ ] New medication prescriptions sent to your pharmacy: [ ] [ x] New medication written as a paper prescription [ ] No new medications given *Please follow up with your primary care provider in 2-3 days, call for an appointment. Let them know you were seen in the Emergency Department and that we ask that you be seen in follow up. We will electronically transmit a record of today's note if your PCP is in our system *If you do not have a primary care provider please contact the [facility] Resource line at [phone]. They will ask some questions about your medical history and help get you set up with a doctor in the community. *Return to Emergency Department if you should have any new, worsening or concerning symptoms, such as [fever greater than 101 F, shaking chills, w orsening pain, persistent vomiting or other bothersome symptoms] Prescriptions: New amlodipine 5 mg tablet 5 mg PO DAILY Qty: 30 0RF lisinopril 10 mg tablet 10 mg PO DAILY Qty: 30 0RF levetiracetam [Keppra] 1,000 mg tablet 1,000 mg PO BID Qty: 60 0RF No Action levetiracetam [Keppra] 500 mg Tablet 1,000 mg PO Q12H 30 Days Qty: 120 0RF amlodipine 5 mg Tablet 5 mg PO DAILY Qty: 30 0RF lisinopril 10 mg Tablet 10 mg PO DAILY Qty: 30 0RF levetiracetam [Keppra] 500 mg tablet 1,000 mg PO Q12H Qty: 180 2RF amlodipine 5 mg tablet 5 mg PO DAILY Qty: 90 0RF lisinopril 10 mg tablet 10 mg PO BID Qty: 90 0RF levetiracetam 500 mg tablet 1,000 mg PO BID Qty: 180 0RF Visit Report Forms: Patient Portal/API
[2022-07-21] MEDS: AMLODIPINE 5 MG TABLET PO (22:20)
[2022-07-21] MEDS: levETIRAcetam 250 MG TABLET 1000 MG PO (22:20)
== END 2022-07-21 22:37 | disposition home or self-care (01) ==
PROVIDERS: Emergency Provider Emergency Medicine
DX: Z76.0 Encounter for issue of repeat prescription (principal)
CPT/HCPCS: 99281; 99283

== ENCOUNTER 2022-07-26 20:58 | Emergency (ER) | payer OTHER, MEDICAID, SELFPAY ==
[2022-07-26] VITALS (12 sets, daily range): BP systolic 111–126; BP diastolic 75–107; PULSE 60–80; RESP 14–21; TEMP 36.1; O2SAT 97–100
[2022-07-26] MEDS: levETIRAcetam 1,000 MG in SODIUM CHLORIDE 0.9% 100 ML 440 MG IV (21:52)
--- NOTE | 2022-07-26 22:41 | ED.SEIZURE ---
HPI - Seizure General Chief Complaint: Seizure Stated Complaint: Seizure Time Seen by Provider: 07/26/22 22:33 Source: patient and EMS Mode of arrival: EMS Limitations: no limitations History of Present Illness HPI Narrative: Patient brought in by ambulance for seizure episode. Patient is awake alert oriented times 3 at this time. Does not recall the event. He states he did go with his friend to a [employer]. He did smoke marijuana and had a little bit of alcohol. He was lowered to the ground by his friend and did not fall. No injury. Had seizure episode. No loss control of bowel or bladder. Patient has long history of seizure and alcohol abuse. Patient seen here recently July 21, 2022 and was given refill Keppra and blood pressure medication. Patient states those ran out. He is on Keppra 1000 mg twice a day. Patient in no distress at this time. Patient does not smell of alcohol, he does smell of marijuana though. Related Data Previous Rx's Medication Instructions Recorded amlodipine 5 mg tablet 5 mg PO DAILY #30 tabs 09/26/20 levetiracetam 500 mg tablet 1,000 mg PO Q12H 30 days #120 tabs 09/26/20 (Keppra) lisinopril 10 mg tablet 10 mg PO DAILY #30 tabs 09/26/20 amlodipine 5 mg tablet 5 mg PO DAILY #90 tabs 11/08/20 levetiracetam 500 mg tablet 1,000 mg PO BID #180 tabs 11/08/20 lisinopril 10 mg tablet 10 mg PO BID #90 tabs 11/08/20 levetiracetam 500 mg tablet 1,000 mg PO Q12H #180 tabs 01/01/21 (Keppra) amlodipine 5 mg tablet 5 mg PO DAILY #30 tabs 07/21/22 levetiracetam 1,000 mg tablet 1,000 mg PO BID #60 tabs 07/21/22 (Keppra) lisinopril 10 mg tablet 10 mg PO DAILY #30 tabs 07/21/22 amlodipine 5 mg tablet 5 mg PO DAILY #30 tabs 07/26/22 levetiracetam 1,000 mg tablet 1,000 mg PO BID #60 tabs 07/26/22 lisinopril 10 mg tablet 10 mg PO DAILY #30 tabs 07/26/22 Allergies Allergy/AdvReac Type Severity Reaction Status Date / Time No Known Drug Allergies Allergy Verified 01/02/21 15:23 Review of Systems Review of Systems Narrative: GENERAL: negative chills, fatigue, malaise, fever, sweats. HEENT: negative sinus pain, ear pain, sore throat RESPIRATORY: negative dyspnea, cough CARDIOVASCULAR: negative chest pain, palpitations GASTROINTESTINAL: negative nausea, vomiting, abdominal pain : negative dysuria, frequency, hematuria MUSCULOSKELETAL: negative muscle or bony pain SKIN: negative rash, skin lesions NEUROLOGIC: negative weakness, numbness, positive seizure, negative altered mental status ROS Unobtainable: All systems reviewed & are unremarkable except as noted in HPI and below Patient History Medical History Hypertension Seizures Social History Smoking Status: Current every day smoker Smoking Status: Current every day smoker alcohol intake frequency: 3 or more drinks per day Alcohol type: hard liquor Substance Use Type: marijuana Exam Narrative Exam Narrative: GENERAL: in no distress, not toxic not dyspneic HEAD: Normocephalic. Atraumatic, nontender face and skull and scalp. No skin injury seen. EYES: Pupils equal round No scleral icterus. ENT: Mucous membranes moist. No tongue abrasion NECK: Trachea midline. No midline tenderness or step-off. CARDIOVASCULAR: Regular rate and rhythm without murmurs RESPIRATORY: Clear to auscultation. Breath sounds equal bilaterally. No wheezes, rales, or rhonchi. GASTROINTESTINAL: Abdomen soft, non-tender EXTREMITIES: No gross deformities. BACK: No flank tenderness. NEURO: AOx4. Clear speech no facial droop light touch intact bilateral face hands with strong equal [employer]. SKIN: Warm and dry PSYCH: Not anxious, is cooperative Initial Vital Signs Initial Vital Signs: Vital Signs Pulse Rate 72 07/26/22 21:04 Respiratory Rate 18 07/26/22 21:04 Pulse Oximetry 99 07/26/22 21:04 Course Orders Ordered: Discontinued Medications Levetiracetam 1,000 mg/ Sodium (Chloride) 110 mls @ 440 mls/hr IV NOW ONE Stop: 07/26/22 21:32 Last Infusion: 07/26/22 22:12 Dose: 0 mls/hr Documented By: Admin: 07/26/22 21:52 Dose: 440 mls/hr Documented By: RB Reevaluation(s) Reevaluation #1: Reviewed with patient events. Seizure likely triggered by marijuana and alcohol consumption tonight. Patient has long history of seizures. Has had CT scans of the head in the past. He is awake alert oriented x4 at this time. Not altered. He does desire discharge home. Prescriptions for refills provided for him. He states he lives in an RV next to the [facility]. He states he needs refill for his medications. Blood pressure improved without intervention. Patient calling for a ride. Time: 22:49 Vital Signs Vital signs: Vital Signs - 8 hr 07/26/22 21:07 07/26/22 21:04 07/26/22 21:05 Temperature 97 F L Pulse Rate 74 72 Respiratory Rate 16 18 Blood Pressure 122/107 H 122/107 H Pulse Oximetry 98 99 Oxygen Delivery Method Room Air 07/26/22 21:05 07/26/22 21:12 07/26/22 21:12 Temperature Pulse Rate 71 65 Respiratory Rate 16 18 Blood Pressure 126/95 H Pulse Oximetry 100 98 Oxygen Delivery Method 07/26/22 21:15 07/26/22 21:15 07/26/22 21:24 Temperature Pulse Rate 60 62 Respiratory Rate 18 21 Blood Pressure 124/92 H Pulse Oximetry 98 98 Oxygen Delivery Method 07/26/22 21:24 07/26/22 21:30 07/26/22 21:30 Temperature Pulse Rate 62 Respiratory Rate 18 Blood Pressure 123/90 120/90 Pulse Oximetry 97 Oxygen Delivery Method 07/26/22 21:45 07/26/22 21:45 07/26/22 22:00 Temperature Pulse Rate 69 Respiratory Rate 14 Blood Pressure 120/83 115/80 Pulse Oximetry 98 Oxygen Delivery Method 07/26/22 22:00 07/26/22 22:15 07/26/22 22:15 Temperature Pulse Rate 64 73 Respiratory Rate 17 18 Blood Pressure 111/75 Pulse Oximetry 97 99 Oxygen Delivery Method MDM - Seizure Differential Diagnosis Differential diagnosis: Likely intractable seizure disorder, generalized seizure and epileptic seizure MDM Narrative Medical decision making narrative: Appropriate for discharge home. Patient awake alert oriented x4 at this time. Not toxic. Not postictal. Exam is reassuring blood work reassuring. Patient seizure episode likely triggered by alcohol/marijuana tonight. Patient denies any pain or injury. No blood or imaging indicated this time. No recent illness. No trauma. Patient has long history of seizures. Patient is not postictal. No altered mental status or confusion. Discharge Plan Departure Patient Disposition: Home Clinical Impression: Seizures Instructions: DI for Seizure Disorder -- Adult Activity Restrictions/Additional Instructions: Please do not do drugs or drink alcohol. This will trigger seizures. Please see family doctor this week for re-evaluation. Call provided primary care referral phone number to establish family doctor. Call [phone]. Prescription for blood pressure medication and seizure medication has been provided for you. Return if worse if any questions or concerns. Prescriptions: New levetiracetam 1,000 mg tablet 1,000 mg PO BID Qty: 60 0RF amlodipine 5 mg tablet 5 mg PO DAILY Qty: 30 0RF lisinopril 10 mg tablet 10 mg PO DAILY Qty: 30 0RF No Action levetiracetam [Keppra] 500 mg Tablet 1,000 mg PO Q12H 30 Days Qty: 120 0RF amlodipine 5 mg Tablet 5 mg PO DAILY Qty: 30 0RF lisinopril 10 mg Tablet 10 mg PO DAILY Qty: 30 0RF levetiracetam [Keppra] 500 mg tablet 1,000 mg PO Q12H Qty: 180 2RF amlodipine 5 mg tablet 5 mg PO DAILY Qty: 90 0RF lisinopril 10 mg tablet 10 mg PO BID Qty: 90 0RF levetiracetam 500 mg tablet 1,000 mg PO BID Qty: 180 0RF amlodipine 5 mg tablet 5 mg PO DAILY Qty: 30 0RF lisinopril 10 mg tablet 10 mg PO DAILY Qty: 30 0RF levetiracetam [Keppra] 1,000 mg tablet 1,000 mg PO BID Qty: 60 0RF Visit Report Forms: Patient Portal/API
== END 2022-07-26 23:09 | disposition home or self-care (01) ==
PROVIDERS: Emergency Provider Emergency Medicine
DX: R56.9 Unspecified convulsions (principal)
CPT/HCPCS: 96365; 99283; J1953

== ENCOUNTER 2022-08-03 11:40 | Inpatient (IN) | payer OTHER, MEDICAID, SELFPAY ==
[2022-08-03] VITALS (65 sets, daily range): BP systolic 116–173; BP diastolic 77–110; PULSE 32–184; RESP 15–50; TEMP 36.3–39.2; O2SAT 94–100; BMI 26.4
--- NOTE | 2022-08-03 11:44 | ED.SEIZURE ---
HPI - Seizure General Chief Complaint: Seizure Stated Complaint: seizure Time Seen by Provider: 08/03/22 11:44 History of Present Illness HPI Narrative: Patient is a 37-year-old male history of seizures and alcohol use disorder. Events today with seizure. He had witnessed she seizure today. He has urinary incontinence and is postictal. Glucose was within normal limits. Medics report an empty bottle of Keppra. It appears that patient was seen and evaluated here on July 21 and July 26 at both discharges he was given prescription for Keppra. Patient states that he is taking it not sure he is. 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 Related Data Previous Rx's Medication Instructions Recorded amlodipine 5 mg tablet 5 mg PO DAILY #30 tabs 09/26/20 levetiracetam 500 mg tablet 1,000 mg PO Q12H 30 days #120 tabs 09/26/20 (Keppra) lisinopril 10 mg tablet 10 mg PO DAILY #30 tabs 09/26/20 amlodipine 5 mg tablet 5 mg PO DAILY #90 tabs 11/08/20 levetiracetam 500 mg tablet 1,000 mg PO BID #180 tabs 11/08/20 lisinopril 10 mg tablet 10 mg PO BID #90 tabs 11/08/20 levetiracetam 500 mg tablet 1,000 mg PO Q12H #180 tabs 01/01/21 (Keppra) amlodipine 5 mg tablet 5 mg PO DAILY #30 tabs 07/21/22 levetiracetam 1,000 mg tablet 1,000 mg PO BID #60 tabs 07/21/22 (Keppra) lisinopril 10 mg tablet 10 mg PO DAILY #30 tabs 07/21/22 amlodipine 5 mg tablet 5 mg PO DAILY #30 tabs 07/26/22 levetiracetam 1,000 mg tablet 1,000 mg PO BID #60 tabs 07/26/22 lisinopril 10 mg tablet 10 mg PO DAILY #30 tabs 07/26/22 Allergies Allergy/AdvReac Type Severity Reaction Status Date / Time No Known Drug Allergies Allergy Verified 08/03/22 11:48 Review of Systems Review of Systems ROS Unobtainable: All systems reviewed & are unremarkable except as noted in HPI and below Patient History Medical History Hypertension Seizures Social History Smoking Status: Current every day smoker Smoking Status: Current every day smoker alcohol intake frequency: 3 or more drinks per day Alcohol type: hard liquor Substance Use Type: marijuana Exam Initial Vital Signs Initial Vital Signs: Vital Signs Temperature 97.3 F L 08/03/22 11:40 Pulse Rate 151 H 08/03/22 11:40 Respiratory Rate 15 08/03/22 11:40 Blood Pressure 126/84 08/03/22 11:40 Pulse Oximetry 99 08/03/22 11:40 Oxygen Delivery Method 08/03/22 11:40 GENERAL: Alert 37-year-old male HEENT: Head atraumatic,EOMI, pupils reactive, face symmetric, no tongue injury CARDIOVASCULAR: Regular rate and rhythm without murmurs, rubs or gallops. RESPIRATORY: Breath sounds equal bilaterally, no wheezes rales or rhonchi. ABDOMEN: Soft, nontender. Normoactive bowel sounds all 4 quadrants. No guarding or rebound. : Urinary incontinence EXTREMITIES: Normal range of motion, no clubbing or edema. Neurovascularly intact NEUROLOGICAL: Alert and oriented to person SKIN: Warm, dry, no laceration, no petechiae, no rashes or lesions. Course Orders Ordered: ED Orders 08/03/22 12:33 CBC Auto Diff [Complete Blood Count AUTO DIFF] Stat CMP [Comprehensive Metabolic Panel] Stat Lactate (Lactic Acid) Stat Procalcitonin Stat Troponin & CK Cardiac Panel Stat 08/03/22 12:55 CT head/brain wo con Stat 08/03/22 13:08 UA Complete [Urinalysis and Microscopic] Stat Urine Drug Screen, Rapid Stat 08/03/22 13:29 EKG-12 Lead Stat 08/03/22 13:50 Blood Culture Stat 08/03/22 13:57 Covid-19 + FLU A/B + RSV - PCR Stat 08/03/22 14:58 ETOH [Ethanol (ETOH)] Stat Lipase Stat 08/03/22 15:00 Lactate (Lactic Acid) Stat 08/03/22 15:25 CMP [Comprehensive Metabolic Panel] Stat 08/03/22 15:39 ABG [Arterial Blood Gas] Stat 08/03/22 17:45 Chest [XR chest 1V] Stat Discontinued Medications Adenosine (Adenosine 6 Mg/2 Ml Vial) 6 mg IV NOW ONE Stop: 08/03/22 14:32 Last Admin: 08/03/22 14:52 Dose: 6 mg Documented By: BS Diltiazem HCl (Diltiazem 5 Mg/Ml Sdv) 10 mg IV NOW ONE Stop: 08/03/22 13:42 Last Admin: 08/03/22 13:44 Dose: 10 mg Documented By: BS Diltiazem HCl (Diltiazem 5 Mg/Ml Sdv) 10 mg IV NOW ONE Stop: 08/03/22 13:55 Last Admin: 08/03/22 14:17 Dose: 10 mg Documented By: NATASHA Sodium Chloride (Normal Saline 0.9%) 1,000 mls @ 1,000 mls/hr IV BOLUS ONE Stop: 08/03/22 13:11 Last Infusion: 08/03/22 14:35 Dose: 0 mls/hr Documented By: Admin: 08/03/22 12:18 Dose: 1,000 mls/hr Documented By: SALINAS Levetiracetam 1,000 mg/ Sodium (Chloride) 110 mls @ 440 mls/hr IV NOW ONE Stop: 08/03/22 12:39 Last Infusion: 08/03/22 13:20 Dose: 0 mls/hr Documented By: Admin: 08/03/22 13:02 Dose: 440 mls/hr Documented By: NATASHA Sodium Chloride (Normal Saline 0.9%) 1,000 mls @ 1,000 mls/hr IV BOLUS ONE Stop: 08/03/22 14:53 Last Infusion: 08/03/22 15:53 Dose: 0 mls/hr Documented By: Admin: 08/03/22 14:17 Dose: 1,000 mls/hr Documented By: NATASHA Acetaminophen (Ofirmev) 1,000 mg in 100 mls @ 400 mls/hr IV NOW ONE Stop: 08/03/22 16:03 Last Infusion: 08/03/22 16:52 Dose: 0 mls/hr Documented By: Admin: 08/03/22 16:10 Dose: 400 mls/hr Documented By: NATASHA Ketorolac Tromethamine (Ketorolac 30 Mg/Ml Vial) 30 mg IV NOW ONE Stop: 08/03/22 13:55 Last Admin: 08/03/22 14:16 Dose: 30 mg Documented By: NATASHA Lorazepam (Lorazepam 2 Mg/Ml Inj) 2 mg IV NOW ONE Stop: 08/03/22 12:13 Last Admin: 08/03/22 12:17 Dose: 2 mg Documented By: SALINAS Lorazepam (Lorazepam 2 Mg/Ml Inj) 4 mg IV NOW ONE Stop: 08/03/22 12:56 Last Admin: 08/03/22 12:57 Dose: 4 mg Documented By: SALINAS Vital Signs Vital signs: Vital Signs - 8 hr 08/03/22 11:40 08/03/22 11:54 08/03/22 12:00 Temperature 97.3 F L Pulse Rate 151 H 163 H 163 H Respiratory Rate 15 41 H 50 H Blood Pressure 126/84 Pulse Oximetry 99 94 Oxygen Delivery Method Room Air 08/03/22 12:15 08/03/22 12:15 08/03/22 12:20 Temperature Pulse Rate 151 H 146 H Respiratory Rate 23 20 Blood Pressure 135/98 H Pulse Oximetry 97 98 Oxygen Delivery Method 08/03/22 12:20 08/03/22 12:25 08/03/22 12:25 Temperature Pulse Rate 151 H Respiratory Rate 20 Blood Pressure 142/96 H 143/99 H Pulse Oximetry 94 Oxygen Delivery Method 08/03/22 12:30 08/03/22 12:30 08/03/22 13:44 Temperature Pulse Rate 158 H 156 H Respiratory Rate 22 Blood Pressure 145/87 H 140/88 Pulse Oximetry 97 Oxygen Delivery Method Room Air 08/03/22 14:07 08/03/22 14:16 08/03/22 14:17 Temperature 102.6 F H 102.6 F H Pulse Rate 151 H Respiratory Rate Blood Pressure 155/100 H Pulse Oximetry Oxygen Delivery Method 08/03/22 12:35 08/03/22 12:35 08/03/22 12:40 Temperature Pulse Rate 156 H 160 H Respiratory Rate 21 22 Blood Pressure 154/99 H Pulse Oximetry 95 99 Oxygen Delivery Method 08/03/22 12:40 08/03/22 12:45 08/03/22 12:45 Temperature Pulse Rate 154 H Respiratory Rate 22 Blood Pressure 143/99 H 134/93 H Pulse Oximetry 98 Oxygen Delivery Method 08/03/22 12:50 08/03/22 12:50 08/03/22 12:55 Temperature Pulse Rate 151 H 174 H Respiratory Rate 19 44 H Blood Pressure 138/95 H Pulse Oximetry 94 97 Oxygen Delivery Method 08/03/22 12:55 08/03/22 13:00 08/03/22 13:00 Temperature Pulse Rate 174 H Respiratory Rate 30 H Blood Pressure 135/91 H 167/110 H Pulse Oximetry 96 Oxygen Delivery Method 08/03/22 13:05 08/03/22 13:05 08/03/22 13:40 Temperature Pulse Rate 174 H Respiratory Rate 25 H Blood Pressure 173/106 H 140/88 Pulse Oximetry 98 Oxygen Delivery Method 08/03/22 13:40 08/03/22 13:45 08/03/22 13:45 Temperature Pulse Rate 175 H 165 H Respiratory Rate 29 H 26 H Blood Pressure 150/101 H Pulse Oximetry 97 100 Oxygen Delivery Method 08/03/22 14:00 08/03/22 14:01 08/03/22 14:01 Temperature Pulse Rate 183 H 184 H Respiratory Rate 38 H 32 H Blood Pressure 139/86 Pulse Oximetry 98 98 Oxygen Delivery Method 08/03/22 14:09 08/03/22 14:09 08/03/22 14:15 Temperature Pulse Rate 165 H 151 H Respiratory Rate 21 27 H Blood Pressure 167/99 H Pulse Oximetry 97 98 Oxygen Delivery Method 08/03/22 14:15 08/03/22 14:30 08/03/22 14:30 Temperature Pulse Rate 161 H Respiratory Rate 29 H Blood Pressure 155/100 H 140/87 Pulse Oximetry 96 Oxygen Delivery Method 08/03/22 14:45 08/03/22 14:45 08/03/22 15:00 Temperature Pulse Rate 149 H Respiratory Rate 26 H Blood Pressure 150/94 H 155/95 H Pulse Oximetry 96 Oxygen Delivery Method 08/03/22 15:00 08/03/22 15:15 08/03/22 15:15 Temperature Pulse Rate 145 H 141 H Respiratory Rate 22 25 H Blood Pressure 152/84 H Pulse Oximetry 96 97 Oxygen Delivery Method 08/03/22 15:30 08/03/22 15:30 08/03/22 15:45 Temperature 101.7 F H Pulse Rate 133 H 127 H Respiratory Rate 31 H Blood Pressure 146/91 H Pulse Oximetry 94 97 Oxygen Delivery Method Room Air 08/03/22 15:45 08/03/22 16:00 08/03/22 16:00 Temperature Pulse Rate 123 H Respiratory Rate 20 Blood Pressure 148/92 H 143/93 H Pulse Oximetry 97 Oxygen Delivery Method 08/03/22 16:15 08/03/22 16:15 08/03/22 16:30 Temperature Pulse Rate 124 H Respiratory Rate 22 Blood Pressure 141/94 H 137/91 H Pulse Oximetry 98 Oxygen Delivery Method Room Air 08/03/22 16:30 08/03/22 16:45 08/03/22 16:45 Temperature Pulse Rate 130 H 137 H Respiratory Rate 28 H 23 Blood Pressure 139/91 H Pulse Oximetry 97 98 Oxygen Delivery Method 08/03/22 17:00 08/03/22 17:00 08/03/22 17:15 Temperature Pulse Rate 128 H 121 H Respiratory Rate 27 H Blood Pressure 127/87 Pulse Oximetry 96 97 Oxygen Delivery Method 08/03/22 17:15 08/03/22 17:30 08/03/22 17:30 Temperature Pulse Rate 112 H Respiratory Rate 20 Blood Pressure 137/93 H 135/92 H Pulse Oximetry 96 Oxygen Delivery Method Room Air MDM - Seizure Lab Data Result diagrams: 08/03/22 12:33 08/03/22 15:25 Labs: Lab Results 08/03/22 08/03/22 08/03/22 Range/Units 12:33 12:33 12:33 WBC 9.5 (4.5-11.0) X10^3/uL RBC 4.03 L (4.5-5.9) X10^6/uL Hgb 13.4 L (13.5-17.5) g/dL Hct 41.7 (41-53) % MCV 103.4 H (80-100) fL MCH 33.3 (26-34) PG MCHC 32.2 (30-36) % RDW 15.0 H (11.6-14.8) % Plt Count 162 (150-400) X10^3/uL Neut % (Auto) 86.4 H (50-75) % Lymph % (Auto) 7.5 L (25-40) % [place] % (Auto) 5.6 (3-14) % Eos % (Auto) 0.1 L (2-4) % Baso % (Auto) 0.4 (0-2) % Neut # (Auto) 8200 H (7149-2805) /uL Lymph # (Auto) 700 L (9447-5441) /uL [place] # (Auto) 500 (0-900) /uL Eos # (Auto) 0 (0-450) /uL Baso # (Auto) 0 (0-100) /uL ABG pH (7.35-7.45) ABG pCO2 (35-45) mmHg ABG pO2 (80-100) mmHg ABG HCO3 (22-26) mmol/L ABG Total CO2 (21-31) mmol/L ABG O2 Saturation (95-100) % ABG Base Excess (-2-2) mmol/L FiO2 Sodium 134 L (137-145) mmol/L Potassium 4.7 (3.4-5.1) mmol/L Chloride 98 (98-107) mmol/L Carbon Dioxide 7 L* (22-32) mmol/L BUN 5 L (9-20) mg/dL Creatinine 1.12 (0.66-1.25) mg/dL Estimated GFR > 60 (>60) mL/min BUN/Creatinine Ratio 4.5 L (6-22) Glucose 118 H (70-100) mg/dL Lactate 18.3 H* (0.7-2.1) mmol/L Calcium 9.1 (8.4-10.2) mg/dL Total Bilirubin 0.3 (0.2-1.3) mg/dL AST 277 H (17-59) IU/L ALT 126 H (<50) IU/L Alkaline Phosphatase 177 H (38-126) U/L Total Creatine Kinase CK-MB (CK-2) (<2.37) ng/mL CK-MB (CK-2) Rel Index (1.5-5.0) % Troponin I (0.01-0.034) ng/mL Total Protein 8.7 H (6.3-8.2) g/dL Albumin 4.5 (3.5-5.0) g/dL Globulin 4.2 H (1.7-4.1) g/dL Albumin/Globulin Ratio 1.1 (1.0-2.8) Lipase (23-300) U/L Procalcitonin (<0.5) ng/mL Ethyl Alcohol ( - 10) mg/dL SARS-CoV-2 (PCR) (Negative) Influenza A (RT-PCR) (NEGATIVE) Influenza B (RT-PCR) (NEGATIVE) RSV (PCR) (Negative) 08/03/22 08/03/22 08/03/22 Range/Units 12:33 12:33 12:33 WBC (4.5-11.0) X10^3/uL RBC (4.5-5.9) X10^6/uL Hgb (13.5-17.5) g/dL Hct (41-53) % MCV (80-100) fL MCH (26-34) PG MCHC (30-36) % RDW (11.6-14.8) % Plt Count (150-400) X10^3/uL Neut % (Auto) (50-75) % Lymph % (Auto) (25-40) % [place] % (Auto) (3-14) % Eos % (Auto) (2-4) % Baso % (Auto) (0-2) % Neut # (Auto) (6853-5055) /uL Lymph # (Auto) (8935-8555) /uL [place] # (Auto) (0-900) /uL Eos # (Auto) (0-450) /uL Baso # (Auto) (0-100) /uL ABG pH (7.35-7.45) ABG pCO2 (35-45) mmHg ABG pO2 (80-100) mmHg ABG HCO3 (22-26) mmol/L ABG Total CO2 (21-31) mmol/L ABG O2 Saturation (95-100) % ABG Base Excess (-2-2) mmol/L FiO2 Sodium (137-145) mmol/L Potassium (3.4-5.1) mmol/L Chloride (98-107) mmol/L Carbon Dioxide (22-32) mmol/L BUN (9-20) mg/dL Creatinine (0.66-1.25) mg/dL Estimated GFR (>60) mL/min BUN/Creatinine Ratio (6-22) Glucose (70-100) mg/dL Lactate (0.7-2.1) mmol/L Calcium (8.4-10.2) mg/dL Total Bilirubin (0.2-1.3) mg/dL AST (17-59) IU/L ALT (<50) IU/L Alkaline Phosphatase (38-126) U/L Total Creatine Kinase Cancelled 143 CK-MB (CK-2) 1.39 (<2.37) ng/mL CK-MB (CK-2) Rel Index 1.0 L (1.5-5.0) % Troponin I < 0.012 (0.01-0.034) ng/mL Total Protein (6.3-8.2) g/dL Albumin (3.5-5.0) g/dL Globulin (1.7-4.1) g/dL Albumin/Globulin Ratio (1.0-2.8) Lipase (23-300) U/L Procalcitonin 0.14 (<0.5) ng/mL Ethyl Alcohol ( - 10) mg/dL SARS-CoV-2 (PCR) (Negative) Influenza A (RT-PCR) (NEGATIVE) Influenza B (RT-PCR) (NEGATIVE) RSV (PCR) (Negative) 08/03/22 08/03/22 08/03/22 Range/Units 13:00 13:57 14:58 WBC (4.5-11.0) X10^3/uL RBC (4.5-5.9) X10^6/uL Hgb (13.5-17.5) g/dL Hct (41-53) % MCV (80-100) fL MCH (26-34) PG MCHC (30-36) % RDW (11.6-14.8) % Plt Count (150-400) X10^3/uL Neut % (Auto) (50-75) % Lymph % (Auto) (25-40) % [place] % (Auto) (3-14) % Eos % (Auto) (2-4) % Baso % (Auto) (0-2) % Neut # (Auto) (9409-0834) /uL Lymph # (Auto) (6983-3220) /uL [place] # (Auto) (0-900) /uL Eos # (Auto) (0-450) /uL Baso # (Auto) (0-100) /uL ABG pH (7.35-7.45) ABG pCO2 (35-45) mmHg ABG pO2 (80-100) mmHg ABG HCO3 (22-26) mmol/L ABG Total CO2 (21-31) mmol/L ABG O2 Saturation (95-100) % ABG Base Excess (-2-2) mmol/L FiO2 Sodium (137-145) mmol/L Potassium (3.4-5.1) mmol/L Chloride (98-107) mmol/L Carbon Dioxide (22-32) mmol/L BUN (9-20) mg/dL Creatinine (0.66-1.25) mg/dL Estimated GFR (>60) mL/min BUN/Creatinine Ratio (6-22) Glucose (70-100) mg/dL Lactate 5.9 H* (0.7-2.1) mmol/L Calcium (8.4-10.2) mg/dL Total Bilirubin (0.2-1.3) mg/dL AST (17-59) IU/L ALT (<50) IU/L Alkaline Phosphatase (38-126) U/L Total Creatine Kinase CK-MB (CK-2) (<2.37) ng/mL CK-MB (CK-2) Rel Index (1.5-5.0) % Troponin I (0.01-0.034) ng/mL Total Protein (6.3-8.2) g/dL Albumin (3.5-5.0) g/dL Globulin (1.7-4.1) g/dL Albumin/Globulin Ratio (1.0-2.8) Lipase 280 (23-300) U/L Procalcitonin (<0.5) ng/mL Ethyl Alcohol 19 H ( - 10) mg/dL SARS-CoV-2 (PCR) Positive H (Negative) Influenza A (RT-PCR) Flu a negative (NEGATIVE) Influenza B (RT-PCR) Flu b negative (NEGATIVE) RSV (PCR) Negative (Negative) 08/03/22 08/03/22 Range/Units 15:25 15:39 WBC (4.5-11.0) X10^3/uL RBC (4.5-5.9) X10^6/uL Hgb (13.5-17.5) g/dL Hct (41-53) % MCV (80-100) fL MCH (26-34) PG MCHC (30-36) % RDW (11.6-14.8) % Plt Count (150-400) X10^3/uL Neut % (Auto) (50-75) % Lymph % (Auto) (25-40) % [place] % (Auto) (3-14) % Eos % (Auto) (2-4) % Baso % (Auto) (0-2) % Neut # (Auto) (1239-4883) /uL Lymph # (Auto) (4072-8182) /uL [place] # (Auto) (0-900) /uL Eos # (Auto) (0-450) /uL Baso # (Auto) (0-100) /uL ABG pH 7.37 (7.35-7.45) ABG pCO2 31.0 L (35-45) mmHg ABG pO2 90 (80-100) mmHg ABG HCO3 18 L (22-26) mmol/L ABG Total CO2 19 L (21-31) mmol/L ABG O2 Saturation 97 (95-100) % ABG Base Excess -7.0 L (-2-2) mmol/L FiO2 21 Sodium 133 L (137-145) mmol/L Potassium 5.4 H (3.4-5.1) mmol/L Chloride 103 (98-107) mmol/L Carbon Dioxide 16 L (22-32) mmol/L BUN 4 L (9-20) mg/dL Creatinine 0.92 (0.66-1.25) mg/dL Estimated GFR > 60 (>60) mL/min BUN/Creatinine Ratio 4.3 L (6-22) Glucose 102 H (70-100) mg/dL Lactate (0.7-2.1) mmol/L Calcium 8.1 L (8.4-10.2) mg/dL Total Bilirubin 0.5 (0.2-1.3) mg/dL AST 261 H (17-59) IU/L ALT 116 H (<50) IU/L Alkaline Phosphatase 145 H (38-126) U/L Total Creatine Kinase CK-MB (CK-2) (<2.37) ng/mL CK-MB (CK-2) Rel Index (1.5-5.0) % Troponin I (0.01-0.034) ng/mL Total Protein 7.6 (6.3-8.2) g/dL Albumin 3.9 (3.5-5.0) g/dL Globulin 3.7 (1.7-4.1) g/dL Albumin/Globulin Ratio 1.1 (1.0-2.8) Lipase (23-300) U/L Procalcitonin (<0.5) ng/mL Ethyl Alcohol ( - 10) mg/dL SARS-CoV-2 (PCR) (Negative) Influenza A (RT-PCR) (NEGATIVE) Influenza B (RT-PCR) (NEGATIVE) RSV (PCR) (Negative) Imaging Data CT scan - head: Radiologist's Impression: CT Scan Report Signed Patient: Cong Luther MR#: [id number] : 1985 Acct:[id number] Age/Sex: 37 / M Date of Service: 08/03/22 Loc: ED Accession Number: [id number] ?? Procedure: CT head/brain wo con Ordering Provider: Franca Holm D.O. PROCEDURE:? CT HEAD/BRAIN WO CON ? INDICATIONS:? recurrant seizures ? TECHNIQUE:? Noncontrast 4.5 mm thick angled axial sections acquired from the foramen magnum to the vertex, with coronal and sagittal reformats.? For radiation dose reduction, the following was used:? automated exposure control, adjustment of mA and/or kV according to patient size.? ? COMPARISON:? [facility], CT, CT HEAD/BRAIN WO CON, 05/11/2022, 16:46. ? FINDINGS:? Image quality:? Excellent.? ? CSF spaces:? Basal cisterns are patent.? No extra-axial fluid collections.? Ventricles are normal in size and shape.? ? Brain:? No midline shift.? No intracranial masses or hemorrhage.? Saul-white matter interface is normal.? ? Skull and face:? Calvarium and visualized facial bones are intact, without suspicious lesions.? ? Sinuses:? Visualized sinuses and mastoids are clear.? ? IMPRESSION:? No evidence acute intracranial process. ? ? Dictated by: Bijan Feliz M.D. on 08/03/2022 at 13:33? Chest x-ray: Radiologist's Impression: Signed Patient: Cong Luther MR#: [id number] : 1985 Acct:[id number] Age/Sex: 37 / M Date of Service: 08/03/22 Loc: ED Accession Number: [id number] ?? Procedure: XR chest 1V Ordering Provider: Franca Holm D.O. PROCEDURE:? XR CHEST 1V ? INDICATIONS:? covid ? TECHNIQUE:? One view of the chest was acquired.? ? COMPARISON:? [facility], CR, XR CHEST 1V, 05/11/2022, 16:44. ? FINDINGS:? ? Surgical changes and devices:? None.? ? Lungs and pleura:? Mild patchy bilateral perihilar opacity.? No pleural effusions or pneumothorax.? ? Mediastinum:? Mediastinal contours appear normal.? Heart size is normal.? ? Bones and chest wall:? No suspicious bony lesions.? Overlying soft tissues appear unremarkable.? ? IMPRESSION:? Mild atypical pneumonia. ? ? Dictated by: Higinio Novoa M.D. on 08/03/2022 at 18:12 ? ? ECG Data Interpretation: SVT rate 188 new from previous EKGs EKG 2. Probable persistent SVT with heart rate 157 I do not Appreciate P waves EKG EKG 3. Persistent SVT rate 159 Normal sinus rhythm rate 142 HI interval 150 QRS [address] changes MDM Narrative Medical decision making narrative: Patient has a history of seizures he may not be taking the Keppra that he has prescribed. He is having another seizure in here in the ED. He requires 4 mg of Ativan. We will go ahead and load him with Keppra 1000 mg. Less than 1 hour after the seizure patient has another seizure requires again 4 mg of Ativan. Seizure. Keppra had not yet been infused. Patient also drinks alcohol which will lower the seizure threshold questionable alcohol withdrawal seizure on top of epilepsy. Head CT is negative. Patient is thin found to be severely tachycardic heart rate 188, which appears to be SVT. He is found to be febrile as well. Blood cultures pending no leukocytosis he has an elevated lactate of 18 which is probably secondary to seizure however can not rule out sepsis at this time. His viral panel is now positive for COVID. He has no procalcitonin elevation. Bedside ultrasound done by myself does not show significant ascites I think less likely to be SBP. Liver enzymes are mildly elevated. He is not tender in his right upper quadrant less likely to be acute cholecystitis. Patient's heart rate is persistently tachycardic 170-180 appears to be SVT. He was given diltiazem 10 mg which he really did not respond to he was given a 2nd dose it did bring the heart rate down into the 150s but he did not convert. I do not appreciate P waves on the EKG. Adenosine was given and he actually did convert into sinus rhythm and had heart rate in the 130s. His fever was treated with Toradol and Tylenol. And he continued to get IV fluids. His heart rate did come down to 112. 1900 Dr. Puri, neurology updated patient's symptoms and test results asking for further seizure management. Actually recommend zonisamide 100 mg q.h.s. because it has a longer half-life. He states after a couple of days can increase up to 200 mg q.h.s. and to continue Keppra 1000 mg b.i.d. Breakthrough seizure is likely secondary to COVID infection, sepsis and alcohol use. Dr. Connor accepts Critical Care Time Critical Care Time Critical Care Time: Yes Total Critical Care Time: 60 Attestation: The high probability of a clinically significant, sudden or life threatening deterioration of the [cardiovascular] system(s) required my full and direct attention, intervention and personal management. The aggregate critical care time was [45] minutes. This time is in addition to time spent performing reported procedures but includes the following: [x] Data Review and interpretation [x] Patient assessment and monitoring of vital signs [x] Documentation [x] Medication orders and management Discharge Plan Departure Prescriptions: No Action levetiracetam [Keppra] 500 mg Tablet 1,000 mg PO Q12H 30 Days Qty: 120 0RF amlodipine 5 mg Tablet 5 mg PO DAILY Qty: 30 0RF lisinopril 10 mg Tablet 10 mg PO DAILY Qty: 30 0RF levetiracetam [Keppra] 500 mg tablet 1,000 mg PO Q12H Qty: 180 2RF levetiracetam 1,000 mg tablet 1,000 mg PO BID Qty: 60 0RF amlodipine 5 mg tablet 5 mg PO DAILY Qty: 30 0RF lisinopril 10 mg tablet 10 mg PO DAILY Qty: 30 0RF amlodipine 5 mg tablet 5 mg PO DAILY Qty: 90 0RF lisinopril 10 mg tablet 10 mg PO BID Qty: 90 0RF levetiracetam 500 mg tablet 1,000 mg PO BID Qty: 180 0RF amlodipine 5 mg tablet 5 mg PO DAILY Qty: 30 0RF lisinopril 10 mg tablet 10 mg PO DAILY Qty: 30 0RF levetiracetam [Keppra] 1,000 mg tablet 1,000 mg PO BID Qty: 60 0RF Referrals: Miscellaneous,Doctor, MD [Primary Care Provider] - Admit Date/Time: 08/03/22 19:12
--- NOTE | 2022-08-03 11:55 | PC.NURSE ---
I found patient to be having a seizure. I placed patient on his right side. provider notified and medications ordered. suction at bedside and non rebreather placed on patient at 15L. myself, Dr. Holm and Gabriela SANDOVAL at bedside.
[2022-08-03] MEDS: LORazepam 2 MG/ML INJ (11:57)
[2022-08-03] MEDS: LORazepam 2 MG/ML INJ IV (12:17)
[2022-08-03] MEDS: ONDANSETRON 4 MG/2 ML INJ (12:17)
[2022-08-03] MEDS: SODIUM CHLORIDE 0.9% 1,000 ML 1000 ML IV ×2 (12:18→14:17)
[2022-08-03 12:42] LABS: Add Manual Diff / Slide Review NO; Basophils Absolute Auto 0 /uL (0-100); Basophils Percent Auto 0.4 % (0-2); Eosinophils Absolute Auto 0 /uL (0-450); Eosinophils Percent Auto 0.1 % (2-4); Hematocrit 41.7 % (41-53); Hemoglobin 13.4 g/dL (13.5-17.5); Lymphocytes Absolute Auto 700 /uL (1100-4500); Lymphocytes Percent Auto 7.5 % (25-40); Mean Corpuscular HGB Conc 32.2 % (30-36); Mean Corpuscular Hemoglobin 33.3 PG (26-34); Mean Corpuscular Volume 103.4 fL (80-100); Monocytes Absolute Auto 500 /uL (0-900); Monocytes Percent Auto 5.6 % (3-14); Neutrophils Absolute Auto 8200 /uL (1500-7000); Neutrophils Percent Auto 86.4 % (50-75); Platelet Count 162 X10^3/uL (150-400); Red Blood Cell Count 4.03 X10^6/uL (4.5-5.9); White Blood Cell Count 9.5 X10^3/uL (4.5-11.0)
--- NOTE | 2022-08-03 12:52 | PC.NURSE ---
I witnessed patient to be having another seizure. patient turned on his left side. suction at bedside. non rebreather on patient at 15L. myself and Dr. Holm at bedside. Dr. Holm verbal ordered medication and 2nd RN to pull medication.
--- NOTE | 2022-08-03 12:55 | DI.CT.S_ITS ---
PROCEDURE: CT HEAD/BRAIN WO CON INDICATIONS: recurrant seizures TECHNIQUE: Noncontrast 4.5 mm thick angled axial sections acquired from the foramen magnum to the vertex, with coronal and sagittal reformats. For radiation dose reduction, the following was used: automated exposure control, adjustment of mA and/or kV according to patient size. COMPARISON: [facility], CT, CT HEAD/BRAIN WO CON, 05/11/2022, 16:46. FINDINGS: Image quality: Excellent. CSF spaces: Basal cisterns are patent. No extra-axial fluid collections. Ventricles are normal in size and shape. Brain: No midline shift. No intracranial masses or hemorrhage. Saul-white matter interface is normal. Skull and face: Calvarium and visualized facial bones are intact, without suspicious lesions. Sinuses: Visualized sinuses and mastoids are clear. IMPRESSION: No evidence acute intracranial process. Dictated by: Bijan Feliz M.D. on 08/03/2022 at 13:33 Approved by: Bijan Feliz M.D. on 08/03/2022 at 13:35
[2022-08-03] MEDS: LORazepam 2 MG/ML INJ 4 MG IV (12:57)
[2022-08-03 13:00] LABS: Alanine Aminotransferase 126 IU/L (<50); Albumin 4.5 g/dL (3.5-5.0); Albumin Globulin Ratio 1.1 (1.0-2.8); Alkaline Phosphatase 177 U/L (38-126); Aspartate Aminotransferase 277 IU/L (17-59); BUN Creatinine Ratio 4.5 (6-22); Bilirubin Total 0.3 mg/dL (0.2-1.3); Blood Urea Nitrogen 5 mg/dL (9-20); Calcium 9.1 mg/dL (8.4-10.2); Chloride 98 mmol/L (98-107); Estimated Glomerular Filt Rate > 60 mL/min (>60); Globulin 4.2 g/dL (1.7-4.1); Glucose 118 mg/dL (70-100); HEMOLYSIS < 15 (0-50); Potassium 4.7 mmol/L (3.4-5.1); Sodium 134 mmol/L (137-145); Total Protein 8.7 g/dL (6.3-8.2)
[2022-08-03] MEDS: levETIRAcetam 1,000 MG in SODIUM CHLORIDE 0.9% 100 ML 440 MG IV (13:02)
[2022-08-03 13:13] LABS: Carbon Dioxide 7 mmol/L (22-32); Lactate (Lactic Acid) 18.3 mmol/L (0.7-2.1)
[2022-08-03 13:36] LABS: Creatine Kinase 143 U/L (55-170)
[2022-08-03 13:41] LABS: Creatine Kinase MB 1.39 ng/mL (<2.37)
[2022-08-03] MEDS: dilTIAZem 5 MG/ML SDV 10 MG IV ×2 (13:44→14:17)
[2022-08-03 14:05] LABS: Procalcitonin 0.14 ng/mL (<0.5)
[2022-08-03 14:06] LABS: Troponin I < 0.012 ng/mL (0.01-0.034)
[2022-08-03] MEDS: KETOROLAC 30 MG/ML VIAL IV (14:16)
[2022-08-03 14:38] LABS: Reflexed Lactate in 2 Hours Y
[2022-08-03 14:49] LABS: Influenza A - CEPHEID Flu A NEGATIVE (NEGATIVE); Influenza B - CEPHEID Flu B NEGATIVE (NEGATIVE); Respiratory Syncytial Virus Negative (Negative)
[2022-08-03] MEDS: ADENOSINE 6 MG/2 ML VIAL IV (14:52)
[2022-08-03 14:55] LABS: COVID-19 CEPHEID 4-PLEX PCR POSITIVE (Negative)
[2022-08-03 15:28] LABS: Ethanol (ETOH) 19 mg/dL; Lipase 280 U/L (23-300)
[2022-08-03 15:38] LABS: Lactate 2HR (Lactic Acid Rflx) 5.9 mmol/L (0.7-2.1)
[2022-08-03 15:42] LABS: Alanine Aminotransferase 116 IU/L (<50); Albumin 3.9 g/dL (3.5-5.0); Albumin Globulin Ratio 1.1 (1.0-2.8); Alkaline Phosphatase 145 U/L (38-126); Aspartate Aminotransferase 261 IU/L (17-59); BUN Creatinine Ratio 4.3 (6-22); Bilirubin Total 0.5 mg/dL (0.2-1.3); Blood Urea Nitrogen 4 mg/dL (9-20); Calcium 8.1 mg/dL (8.4-10.2); Carbon Dioxide 16 mmol/L (22-32); Chloride 103 mmol/L (98-107); Estimated Glomerular Filt Rate > 60 mL/min (>60); Globulin 3.7 g/dL (1.7-4.1); Glucose 102 mg/dL (70-100); HEMOLYSIS 50 (0-50); Sodium 133 mmol/L (137-145); Total Protein 7.6 g/dL (6.3-8.2)
[2022-08-03 15:43] LABS: Potassium 5.4 mmol/L (3.4-5.1)
[2022-08-03] MEDS: ACETAMINOPHEN IV 1,000 MG/100 ML VIAL 400 MG IV (16:10)
[2022-08-03 16:14] LABS: Fractionated Inspired Oxygen 21; HCO3 ABG 18 mmol/L (22-26); Oxygen Saturation ABG 97 % (95-100); PO2 ABG 90 mmHg (80-100); TCO2 ABG 19 mmol/L (21-31); pH ABG 7.37 (7.35-7.45)
[2022-08-03] MEDS: SODIUM ZIRCONIUM CYCLOSILICATE 10 GM POWD.PACK PO (17:12)
--- NOTE | 2022-08-03 17:45 | DI.RAD.S_ITS ---
PROCEDURE: XR CHEST 1V INDICATIONS: covid TECHNIQUE: One view of the chest was acquired. COMPARISON: [facility], CR, XR CHEST 1V, 05/11/2022, 16:44. FINDINGS: Surgical changes and devices: None. Lungs and pleura: Mild patchy bilateral perihilar opacity. No pleural effusions or pneumothorax. Mediastinum: Mediastinal contours appear normal. Heart size is normal. Bones and chest wall: No suspicious bony lesions. Overlying soft tissues appear unremarkable. IMPRESSION: Mild atypical pneumonia. Dictated by: Higinio Novoa M.D. on 08/03/2022 at 18:12 Approved by: Higinio Novoa M.D. on 08/03/2022 at 18:12
[2022-08-03] MEDS: SODIUM CHLORIDE 0.9% 1,000 ML 150 ML IV (19:25)
[2022-08-03] MEDS: IBUPROFEN 600 MG TABLET PO (20:04)
[2022-08-03] MEDS: chlordiazePOXIDE 25 MG CAPSULE PO (21:18)
[2022-08-03] MEDS: ZONISAMIDE 100 MG CAPSULE PO (21:24)
[2022-08-03] MEDS: SODIUM CHLORIDE 0.9% 1,000 ML 175 ML IV (21:45)
--- NOTE | 2022-08-03 21:59 | P.HP_ITS ---
History of Present Illness History of Present Illness Date Patient Seen: 08/03/22 Time Patient Seen: 21:59 Chief complaint: seizure Narrative: Cong Luther is a 37-year-old male history of seizures and alcohol use disorder.? He presented to the ED today with seizure.? Unable to obtain a history from the patient as he is very somnolent.? He reportedly had urinary incontinence and is postictal.? Glucose was within normal limits.? Medics report an empty bottle of Keppra.? It appears that patient was seen and evaluated here on July 21 and July 26 at both discharges he was given prescription for Keppra.? Patient states that he is taking it not sure he is.? 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 What little he was able to tell me was that he had a drink right before he had a seizure and does not remember taking his medications. Head CT was negative for any acute intracranial process or injury. Chest x-ray indicated mild bilateral atypical pneumonia. He was administered 6 mg of IV Ativan in 2 doses, 1000 mg of IV Keppra, adenosine, ketorolac, oral sodium zirconium, and 2 doses of diltiazem in the emergency department, He was febrile on presentation with a T-max of 102.6, currently his temperature is 99.7?, blood pressure 169/89 heart rate 125 respiratory rate 22 oxygen saturation of 98% on room air he weighs 90.7 kg with a BMI of 26. CBC is unremarkable, ABG bicarb was 18 ABG total CO2 was 19 ABG pH was 7.3 sodium 133 potassium 5.4 chloride 103 serum bicarb 16 BUN 4 glucose 102 lactate was initially 18.3 in his come down to 5.9 calcium 8.1 AST 261 ALT 116 alk-phos 145 CK is 1.0 alcohol level was high at 19 and COVID-19 PCR was positive. Of note, patient has a stated history of seizures since the age of 7. This is his 12th ED admission since July of 2020 for seizures and/or running out of his seizure medication. Patient History Medical History Hypertension Seizures Family & Social History Family history unavailable: Yes Safety & Behavioral: Feels Safe in Current Yes Environment Been Physically Hurt or No Threatened By a Person Tobacco & Substance use: Smoking Status Current every day smoker alcohol intake frequency 3 or more drinks per day Substance Use Type marijuana Meds Home Medications and Allergies Home Medications Medication Instructions Recorded Confirmed Type amlodipine 5 mg tablet 5 mg PO DAILY #30 tabs 09/26/20 Rx levetiracetam 500 mg tablet 1,000 mg PO Q12H 30 days #120 tabs 09/26/20 Rx (Keppra) lisinopril 10 mg tablet 10 mg PO DAILY #30 tabs 09/26/20 Rx amlodipine 5 mg tablet 5 mg PO DAILY #90 tabs 11/08/20 Rx levetiracetam 500 mg tablet 1,000 mg PO BID #180 tabs 11/08/20 Rx lisinopril 10 mg tablet 10 mg PO BID #90 tabs 11/08/20 Rx levetiracetam 500 mg tablet 1,000 mg PO Q12H #180 tabs 01/01/21 Rx (Keppra) amlodipine 5 mg tablet 5 mg PO DAILY #30 tabs 07/21/22 Rx levetiracetam 1,000 mg tablet 1,000 mg PO BID #60 tabs 07/21/22 Rx (Keppra) lisinopril 10 mg tablet 10 mg PO DAILY #30 tabs 07/21/22 Rx amlodipine 5 mg tablet 5 mg PO DAILY #30 tabs 07/26/22 Rx levetiracetam 1,000 mg tablet 1,000 mg PO BID #60 tabs 07/26/22 Rx lisinopril 10 mg tablet 10 mg PO DAILY #30 tabs 07/26/22 Rx Allergies Allergy/AdvReac Type Severity Reaction Status Date / Time No Known Drug Allergies Allergy Verified 08/03/22 11:48 Review of Systems Review of Systems ROS: Yes unobtainable due to mental status Exam Vital Signs (past 8 hours): - 08/03/22 14:07 08/03/22 14:16 08/03/22 14:17 Temperature 102.6 F H 102.6 F H Pulse Rate 151 H Respiratory Rate Blood Pressure 155/100 H Pulse Oximetry Oxygen Delivery Method 08/03/22 14:00 08/03/22 14:01 08/03/22 14:01 Temperature Pulse Rate 183 H 184 H Respiratory Rate 38 H 32 H Blood Pressure 139/86 Pulse Oximetry 98 98 Oxygen Delivery Method 08/03/22 14:09 08/03/22 14:09 08/03/22 14:15 Temperature Pulse Rate 165 H 151 H Respiratory Rate 21 27 H Blood Pressure 167/99 H Pulse Oximetry 97 98 Oxygen Delivery Method 08/03/22 14:15 08/03/22 14:30 08/03/22 14:30 Temperature Pulse Rate 161 H Respiratory Rate 29 H Blood Pressure 155/100 H 140/87 Pulse Oximetry 96 Oxygen Delivery Method 08/03/22 14:45 08/03/22 14:45 08/03/22 15:00 Temperature Pulse Rate 149 H Respiratory Rate 26 H Blood Pressure 150/94 H 155/95 H Pulse Oximetry 96 Oxygen Delivery Method 08/03/22 15:00 08/03/22 15:15 08/03/22 15:15 Temperature Pulse Rate 145 H 141 H Respiratory Rate 22 25 H Blood Pressure 152/84 H Pulse Oximetry 96 97 Oxygen Delivery Method 08/03/22 15:30 08/03/22 15:30 08/03/22 15:45 Temperature 101.7 F H Pulse Rate 133 H 127 H Respiratory Rate 31 H Blood Pressure 146/91 H Pulse Oximetry 94 97 Oxygen Delivery Method Room Air 08/03/22 15:45 08/03/22 16:00 08/03/22 16:00 Temperature Pulse Rate 123 H Respiratory Rate 20 Blood Pressure 148/92 H 143/93 H Pulse Oximetry 97 Oxygen Delivery Method 08/03/22 16:15 08/03/22 16:15 08/03/22 16:30 Temperature Pulse Rate 124 H Respiratory Rate 22 Blood Pressure 141/94 H 137/91 H Pulse Oximetry 98 Oxygen Delivery Method Room Air 08/03/22 16:30 08/03/22 16:45 08/03/22 16:45 Temperature Pulse Rate 130 H 137 H Respiratory Rate 28 H 23 Blood Pressure 139/91 H Pulse Oximetry 97 98 Oxygen Delivery Method 08/03/22 17:00 08/03/22 17:00 08/03/22 17:15 Temperature Pulse Rate 128 H 121 H Respiratory Rate 27 H Blood Pressure 127/87 Pulse Oximetry 96 97 Oxygen Delivery Method 08/03/22 17:15 08/03/22 17:30 08/03/22 17:30 Temperature Pulse Rate 112 H Respiratory Rate 20 Blood Pressure 137/93 H 135/92 H Pulse Oximetry 96 Oxygen Delivery Method Room Air 08/03/22 17:45 08/03/22 17:45 08/03/22 18:00 Temperature Pulse Rate 110 H Respiratory Rate 18 Blood Pressure 138/95 H 143/91 H Pulse Oximetry 96 Oxygen Delivery Method 08/03/22 18:00 08/03/22 18:15 08/03/22 18:15 Temperature Pulse Rate 113 H 119 H Respiratory Rate 18 24 Blood Pressure 134/84 Pulse Oximetry 98 96 Oxygen Delivery Method 08/03/22 18:30 08/03/22 18:30 08/03/22 18:45 Temperature Pulse Rate 105 H Respiratory Rate 17 Blood Pressure 143/89 H 130/84 Pulse Oximetry 97 Oxygen Delivery Method 08/03/22 18:45 08/03/22 19:00 08/03/22 19:00 Temperature Pulse Rate 117 H 119 H Respiratory Rate 22 26 H Blood Pressure 127/82 Pulse Oximetry 96 96 Oxygen Delivery Method 08/03/22 19:16 08/03/22 19:16 08/03/22 20:04 Temperature 100.8 F H 100.8 F H Pulse Rate 125 H Respiratory Rate 22 Blood Pressure 169/89 H Pulse Oximetry 98 Oxygen Delivery Method 08/03/22 21:20 Temperature 99.7 F H Pulse Rate Respiratory Rate Blood Pressure Pulse Oximetry Oxygen Delivery Method Oxygen Delivery Method Room Air Narrative Exam Narrative: Gen: Alert, arousable, well-developed 67 y.o. male, altered and post- ictal HEENT: normocephalic, atraumatic, conjunctiva clear, sclera non-icteric, oral mucosa pink and moist Neck: supple, full ROM, no JVD, trachea is midline Resp: Lungs CTA, non-labored breathing CV: RRR, no murmur or rubs Abd: soft, non-tender, normoactive BTs Skin: appears to have a hematoma w/scant bleeding behind right ear, multiple tatoos. Neuro: very lethargic, question cognitive delay. Mumbles. Extremities: moves all 4 extremities, is ambulatory, negative Deya?s sign Psyche: impulsive, significant fall risk Objective Labs Result Diagrams: 08/03/22 12:33 08/03/22 15:25 Labs: Laboratory Results - last 24 hr 08/03/22 08/03/22 08/03/22 12:33 12:33 12:33 WBC 9.5 RBC 4.03 L Hgb 13.4 L Hct 41.7 MCV 103.4 H MCH 33.3 MCHC 32.2 RDW 15.0 H Plt Count 162 Neut % (Auto) 86.4 H Lymph % (Auto) 7.5 L Victoria % (Auto) 5.6 Eos % (Auto) 0.1 L Baso % (Auto) 0.4 Neut # (Auto) 8200 H Lymph # (Auto) 700 L Victoria # (Auto) 500 Eos # (Auto) 0 Baso # (Auto) 0 ABG pH ABG pCO2 ABG pO2 ABG HCO3 ABG Total CO2 ABG O2 Saturation ABG Base Excess FiO2 Sodium 134 L Potassium 4.7 Chloride 98 Carbon Dioxide 7 L* BUN 5 L Creatinine 1.12 Estimated GFR > 60 BUN/Creatinine Ratio 4.5 L Glucose 118 H Lactate 18.3 H* Calcium 9.1 Total Bilirubin 0.3 AST 277 H ALT 126 H Alkaline Phosphatase 177 H Total Creatine Kinase CK-MB (CK-2) CK-MB (CK-2) Rel Index Troponin I Total Protein 8.7 H Albumin 4.5 Globulin 4.2 H Albumin/Globulin Ratio 1.1 Lipase Procalcitonin Ethyl Alcohol SARS-CoV-2 (PCR) Influenza A (RT-PCR) Influenza B (RT-PCR) RSV (PCR) 08/03/22 08/03/22 08/03/22 12:33 12:33 12:33 WBC RBC Hgb Hct MCV MCH MCHC RDW Plt Count Neut % (Auto) Lymph % (Auto) Victoria % (Auto) Eos % (Auto) Baso % (Auto) Neut # (Auto) Lymph # (Auto) Victoria # (Auto) Eos # (Auto) Baso # (Auto) ABG pH ABG pCO2 ABG pO2 ABG HCO3 ABG Total CO2 ABG O2 Saturation ABG Base Excess FiO2 Sodium Potassium Chloride Carbon Dioxide BUN Creatinine Estimated GFR BUN/Creatinine Ratio Glucose Lactate Calcium Total Bilirubin AST ALT Alkaline Phosphatase Total Creatine Kinase Cancelled 143 CK-MB (CK-2) 1.39 CK-MB (CK-2) Rel Index 1.0 L Troponin I < 0.012 Total Protein Albumin Globulin Albumin/Globulin Ratio Lipase Procalcitonin 0.14 Ethyl Alcohol SARS-CoV-2 (PCR) Influenza A (RT-PCR) Influenza B (RT-PCR) RSV (PCR) 08/03/22 08/03/22 08/03/22 13:57 14:58 15:00 WBC RBC Hgb Hct MCV MCH MCHC RDW Plt Count Neut % (Auto) Lymph % (Auto) Victoria % (Auto) Eos % (Auto) Baso % (Auto) Neut # (Auto) Lymph # (Auto) Victoria # (Auto) Eos # (Auto) Baso # (Auto) ABG pH ABG pCO2 ABG pO2 ABG HCO3 ABG Total CO2 ABG O2 Saturation ABG Base Excess FiO2 Sodium Potassium Chloride Carbon Dioxide BUN Creatinine Estimated GFR BUN/Creatinine Ratio Glucose Lactate 5.9 H* Calcium Total Bilirubin AST ALT Alkaline Phosphatase Total Creatine Kinase CK-MB (CK-2) CK-MB (CK-2) Rel Index Troponin I Total Protein Albumin Globulin Albumin/Globulin Ratio Lipase 280 Procalcitonin Ethyl Alcohol 19 H SARS-CoV-2 (PCR) Positive H Influenza A (RT-PCR) Flu a negative Influenza B (RT-PCR) Flu b negative RSV (PCR) Negative 08/03/22 08/03/22 15:25 15:39 WBC RBC Hgb Hct MCV MCH MCHC RDW Plt Count Neut % (Auto) Lymph % (Auto) Victoria % (Auto) Eos % (Auto) Baso % (Auto) Neut # (Auto) Lymph # (Auto) Victoria # (Auto) Eos # (Auto) Baso # (Auto) ABG pH 7.37 ABG pCO2 31.0 L ABG pO2 90 ABG HCO3 18 L ABG Total CO2 19 L ABG O2 Saturation 97 ABG Base Excess -7.0 L FiO2 21 Sodium 133 L Potassium 5.4 H Chloride 103 Carbon Dioxide 16 L BUN 4 L Creatinine 0.92 Estimated GFR > 60 BUN/Creatinine Ratio 4.3 L Glucose 102 H Lactate Calcium 8.1 L Total Bilirubin 0.5 AST 261 H ALT 116 H Alkaline Phosphatase 145 H Total Creatine Kinase CK-MB (CK-2) CK-MB (CK-2) Rel Index Troponin I Total Protein 7.6 Albumin 3.9 Globulin 3.7 Albumin/Globulin Ratio 1.1 Lipase Procalcitonin Ethyl Alcohol SARS-CoV-2 (PCR) Influenza A (RT-PCR) Influenza B (RT-PCR) RSV (PCR) Assessment & Plan Assessment & Plan narrative: Cong Luther is admitted for a witnessed seizure and COVID-19 pneumonia Witnessed seizure, acute and present on admission * neuro service was consulted by ED provider * Recommended starting IV keppra 1000 mg twice daily and oral zonisamide 100 mg po at bedtime for more long acting effect * Seizure precautions * Had a mildly elevated alcohol level, will need to monitor CIWA * Ativan prn, librium 25 mg po tid * Multiple ED admissions with a suspicion of non-compliance and polysubstance use. Fever, COVID + * Rads reported as bilateral atypical pneumonia, likely COVID * Possibly bacterial, started on IV ceftriaxone * Not hypoxemic, if starting to develop hypoxemia, start IV remdesevir and dexamethasone. History of chronic medication non-adherance and polysubstance use * Patient states his PCP is Marianna Lan at [facility] in [facility], recommend coordinating care with her * consult requested * CIWA protocol VTE Prophylaxis: Wells risk score 0 XEnoxaparin 40 mg subQ once daily X Bilat eral SCDs Patient is admitted to the inpatient service due to the severity of disease, risks of further disease progression and this stay is expected to exceed 2 midnights. FEN: IV fluids: ns at 175 ml/hour, diet:general , labs: CBC, C/BMP, liver enzymes, Mag, PT/INR Consultants None Dispo: Admitted as inpatient, probable discharge to home Code status: Full code as discussed with the patient who identifies his mother as his surrogate and POA. [X] I have utilized all available immediate resources to obtain, update, or review of the patient's current medications VTE Deep Vein Thrombosis/Pulmonary Embolism Present on Admission: No MIPS - Admit I confirm the patient?s Advance Care Plan is present, Code status is documented, Surrogate decision maker is in patient?s record: Yes MIPS - DC The patient has current or prior documentation of left ventricular ejection fraction (LVEF) less than 40%, or moderate or severely depressed left ventricular systolic function.: No COVID-19 COVID-19 status: Positive Result date/Date tested (Pos, Neg/Pending): 08/03/22
[2022-08-03] MEDS: cefTRIAXone 2,000 MG in SODIUM CHLORIDE 0.9% 100 ML 200 MG IV (23:57)
[2022-08-04] VITALS (20 sets, daily range): BP systolic 121–143; BP diastolic 71–104; PULSE 59–114; RESP 16–24; TEMP 35.9–36.9; O2SAT 16–100; BMI 26.4
[2022-08-04] MEDS: AZITHROMYCIN 500 MG in DEXTROSE 5% IN WATER 250 ML 250 MG IV (00:34)
[2022-08-04] MEDS: levETIRAcetam 1,000 MG in SODIUM CHLORIDE 0.9% 100 ML 440 MG IV ×2 (02:21→13:38)
[2022-08-04] MEDS: SODIUM CHLORIDE 0.9% 1,000 ML 175 ML IV (04:26)
[2022-08-04 06:16] LABS: Add Manual Diff / Slide Review NO; Basophils Absolute Auto 0 /uL (0-100); Basophils Percent Auto 0.1 % (0-2); Eosinophils Absolute Auto 0 /uL (0-450); Eosinophils Percent Auto 0.1 % (2-4); Hematocrit 37.1 % (41-53); Hemoglobin 12.3 g/dL (13.5-17.5); Lymphocytes Absolute Auto 1200 /uL (1100-4500); Lymphocytes Percent Auto 17.9 % (25-40); Mean Corpuscular HGB Conc 33.2 % (30-36); Mean Corpuscular Hemoglobin 33.1 PG (26-34); Mean Corpuscular Volume 99.6 fL (80-100); Monocytes Absolute Auto 1300 /uL (0-900); Neutrophils Absolute Auto 4300 /uL (1500-7000); Neutrophils Percent Auto 62.9 % (50-75); Platelet Count 113 X10^3/uL (150-400); Red Blood Cell Count 3.73 X10^6/uL (4.5-5.9); Red Cell Distribution Width 15.1 % (11.6-14.8); White Blood Cell Count 6.9 X10^3/uL (4.5-11.0)
[2022-08-04 06:24] LABS: Alanine Aminotransferase 105 IU/L (<50); Albumin 3.6 g/dL (3.5-5.0); Alkaline Phosphatase 110 U/L (38-126); Aspartate Aminotransferase 168 IU/L (17-59); BUN Creatinine Ratio 4.2 (6-22); Bilirubin Total 0.5 mg/dL (0.2-1.3); Blood Urea Nitrogen 6 mg/dL (9-20); Calcium 8.4 mg/dL (8.4-10.2); Carbon Dioxide 21 mmol/L (22-32); Chloride 105 mmol/L (98-107); Estimated Glomerular Filt Rate > 60 mL/min (>60); Globulin 3.5 g/dL (1.7-4.1); Glucose 64 mg/dL (70-100); HEMOLYSIS < 15 (0-50); Magnesium 2.2 mg/dL (1.6-2.3); Potassium 3.8 mmol/L (3.4-5.1); Sodium 135 mmol/L (137-145); Total Protein 7.1 g/dL (6.3-8.2)
--- NOTE | 2022-08-04 10:40 | PC.NURSE ---
smooth, charge rn to give 0900 meds. they arrived late from pharmacy
[2022-08-04] MEDS: FOLIC ACID 1 MG TABLET PO (10:41)
[2022-08-04] MEDS: MULTIVITAMIN 1 TABLET 1 TAB PO (10:41)
[2022-08-04] MEDS: THIAMINE 100 MG TABLET PO (10:42)
[2022-08-04] MEDS: chlordiazePOXIDE 25 MG CAPSULE PO ×2 (10:49→15:30)
[2022-08-04] MEDS: ENOXAPARIN 40 MG/0.4 ML SYRINGE SUBCUT (10:50)
[2022-08-04 11:06] LABS: Acinetobacter baumannii Not Detected (Not Detect); Candida albicans Not Detected (Not Detect); Candida glabrata Not Detected (Not Detect); Candida krusei Not Detected (Not Detect); Candida parapsilosis Not Detected (Not Detect); Candida tropicalis Not Detected (Not Detect); E. coli Not Detected (Not Detect); Enterobacter cloacae complex Not Detected (Not Detect); Enterobacteriaceae species Not Detected (Not Detect); Enterococcus species Not Detected (Not Detect); Haemophilus influenzae Not Detected (Not Detect); Listeria monocytogenes Not Detected (Not Detect); Methicillin-resistant gene Not Detected (Not Detect); Neisseria meningitidis Not Detected (Not Detect); Proteus species Not Detected (Not Detect); Pseudomonas aeruginosa Not Detected (Not Detect); Serratia marcescens Not Detected (Not Detect); Staphylococcus species Detected (Not Detect); Streptococcus agalactiae (Gr B Not Detected (Not Detect); Streptococcus pneumonia Not Detected (Not Detect); Streptococcus pyogenes (Gr A) Not Detected (Not Detect); Streptococcus species Not Detected (Not Detect)
[2022-08-04 13:16] LABS: Lactate (Lactic Acid) 1.1 mmol/L (0.7-2.1)
[2022-08-04 13:17] LABS: Alanine Aminotransferase 100 IU/L (<50); Albumin 3.8 g/dL (3.5-5.0); Alkaline Phosphatase 104 U/L (38-126); Aspartate Aminotransferase 171 IU/L (17-59); BUN Creatinine Ratio 5.1 (6-22); Bilirubin Total 0.6 mg/dL (0.2-1.3); Blood Urea Nitrogen 6 mg/dL (9-20); Calcium 8.8 mg/dL (8.4-10.2); Carbon Dioxide 22 mmol/L (22-32); Chloride 101 mmol/L (98-107); Estimated Glomerular Filt Rate > 60 mL/min (>60); Globulin 3.7 g/dL (1.7-4.1); Glucose 91 mg/dL (70-100); HEMOLYSIS < 15 (0-50); Potassium 3.9 mmol/L (3.4-5.1); Sodium 134 mmol/L (137-145); Total Protein 7.5 g/dL (6.3-8.2)
[2022-08-04 13:27] LABS: Creatine Kinase 2366 U/L (55-170)
--- NOTE | 2022-08-04 17:06 | P.PN_ITS ---
Subjective Subjective Date Patient Seen: 08/04/22 Interval history: 37 M admitted after a seizure with JOSE L and rhabdomyolysis as CK jumped today to >2366. He has no current symptoms. Seizure medications were adjusted per neuro recommendations. Creatinine is improving however. He wanted to leave today, but was convinced to stay after discussion regarding rhadbomyolysis and it's consequences. He remains on librium for probable mild alcohol withdrawal, changed to BID from TID today. Exam Vital Signs (past 8 hours): - 08/04/22 12:18 08/04/22 12:00 Temperature 96.7 F L Pulse Rate 105 H Respiratory Rate 16 Blood Pressure 143/104 H Pulse Oximetry 16 L 96 Oxygen Delivery Method Room Air Oxygen Flow Rate 0 Oxygen Delivery Method Room Air Oxygen Flow Rate 0 Narrative Exam Narrative: General:? Patient is well developed and well nourished, in no distress at this time. HEENT:? Normocephalic, atraumatic, extraocular muscles intact, oral pharynx is clear and mucous membranes are moist. Neck: supple and symmetric, trachea is midline, no cervical adenopathy. Negative for JVD Chest:? Normal AP diameter and contour without kyphoscoliosis, no tachypnea, equal chest rise bilaterally. Lungs:? CTA b/l no wheezing rhonchi or rales. Cardio:?RRR no m/r/g. Abdomen: S NT ND. No CVA tenderness. Musculoskeletal:? Muscle strength and tone are equal within normal limits, no deformity. Extremities: No edema or joint effusions. No cyanosis or clubbing. Skin:? Pale,? Warm to touch,dry and intact without rashes, ulcerations or petechiae.? Neuro:? Alert and orientated x3,? sensation to touch intact in all extremities, no gross deficits noted of cranial nerves. Psych:? Patient has a well-kept appearance, appropriate affect, mental status attitude thought context and judgment are appropriate for age. Objective Labs Result Diagrams: 08/04/22 06:07 08/04/22 12:50 Labs: Laboratory Results - last 24 hr 08/03/22 08/03/22 08/04/22 13:50 15:00 06:07 WBC 6.9 RBC 3.73 L Hgb 12.3 L Hct 37.1 L MCV 99.6 D MCH 33.1 MCHC 33.2 RDW 15.1 H Plt Count 113 L Neut % (Auto) 62.9 D Lymph % (Auto) 17.9 L [place] % (Auto) 19.0 H Eos % (Auto) 0.1 L Baso % (Auto) 0.1 Neut # (Auto) 4300 Lymph # (Auto) 1200 [place] # (Auto) 1300 H Eos # (Auto) 0 Baso # (Auto) 0 Sodium Potassium Chloride Carbon Dioxide BUN Creatinine Estimated GFR BUN/Creatinine Ratio Glucose Lactate 5.9 H* Calcium Magnesium Total Bilirubin AST ALT Alkaline Phosphatase Total Creatine Kinase Total Protein Albumin Globulin Albumin/Globulin Ratio A. baumannii (PCR) Not detected Korin albicans (PCR) Not detected C. glabrata (PCR) Not detected C. krusei (PCR) Not detected C. parapsilosis (PCR) Not detected C. tropicalis (PCR) Not detected Enterobacteriac sp PCR Not detected E. cloacae complex PCR Not detected Enterococcus sp PCR Not detected E. coli (PCR) Not detected H. influenzae (PCR) Not detected Klebsiella oxytoca PCR Not detected Klebsiella pneumoniae Not detected List. monocytogenes PCR Not detected N. meningitidis (PCR) Not detected Proteus species (PCR) Not detected Serratia marcescens PCR Not detected Staphylococcus sp PCR Detected H Staph aureus (PCR) Not detected mecA-Methicil Res Gene Not detected Streptococcus sp PCR Not detected Group A Strep (PCR) Not detected Strep agalactiae (PCR) Not detected Strep pneumoniae (PCR) Not detected P. aeruginosa (PCR) Not detected Foreign/B-Vanco Res Genes Not Reportable KPC-Carbap Res Gene PCR Not Reportable 08/04/22 08/04/22 08/04/22 06:07 12:50 12:50 WBC RBC Hgb Hct MCV MCH MCHC RDW Plt Count Neut % (Auto) Lymph % (Auto) [place] % (Auto) Eos % (Auto) Baso % (Auto) Neut # (Auto) Lymph # (Auto) [place] # (Auto) Eos # (Auto) Baso # (Auto) Sodium 135 L 134 L Potassium 3.8 D 3.9 Chloride 105 101 Carbon Dioxide 21 L 22 BUN 6 L 6 L Creatinine 1.43 H 1.17 Estimated GFR > 60 > 60 BUN/Creatinine Ratio 4.2 L 5.1 L Glucose 64 L 91 Lactate 1.1 Calcium 8.4 8.8 Magnesium 2.2 Total Bilirubin 0.5 0.6 AST 168 H 171 H ALT 105 H 100 H Alkaline Phosphatase 110 104 Total Creatine Kinase 2366 H D Total Protein 7.1 7.5 Albumin 3.6 3.8 Globulin 3.5 3.7 Albumin/Globulin Ratio 1.0 1.0 A. baumannii (PCR) Korin albicans (PCR) C. glabrata (PCR) C. krusei (PCR) C. parapsilosis (PCR) C. tropicalis (PCR) Enterobacteriac sp PCR E. cloacae complex PCR Enterococcus sp PCR E. coli (PCR) H. influenzae (PCR) Klebsiella oxytoca PCR Klebsiella pneumoniae List. monocytogenes PCR N. meningitidis (PCR) Proteus species (PCR) Serratia marcescens PCR Staphylococcus sp PCR Staph aureus (PCR) mecA-Methicil Res Gene Streptococcus sp PCR Group A Strep (PCR) Strep agalactiae (PCR) Strep pneumoniae (PCR) P. aeruginosa (PCR) Foreign/B-Vanco Res Genes KPC-Carbap Res Gene PCR PFSH Medical History Hypertension Seizures Social History Smoking Status: Current every day smoker alcohol intake: current Assessment & Plan Assessment & Plan narrative: Cong Luther is admitted for a witnessed seizure and COVID-19 pneumonia Witnessed seizure, acute and present on admission, probable alcohol withdrawal with acute rhabdomyolysis. * neuro service was consulted by ED provider * Recommended starting IV keppra 1000 mg twice daily and oral zonisamide 100 mg po at bedtime for more long acting effect. * Seizure precautions * Had a mildly elevated alcohol level, will need to monitor CIWA * Ativan prn, librium 25 mg po tid will reduce to BID * Multiple ED admissions with a suspicion of non-compliance and polysubstance use. * CK up to 2300 today after seizure, continue to trend. Continues NS infusion. Repeat evaluation ordered for the AM. Fever, COVID + * Rads reported as bilateral atypical pneumonia, likely COVID * Possibly bacterial, started on IV ceftriaxone but given lack of positive cu ltures and probable aspiration pneumonitis or viral infection, bacterial infection is much less likely. History of chronic medication non-adherance and polysubstance use * Patient states his PCP is Marianna Lan at [facility] in [facility], recommend coordinating care with her * SW consult requested * [facility] protocol Resolved issues: JOSE L - likely initially in setting of seizure, continue to follow given development of rhabdomyolysis today. SVT - patient initially with rapid regular rhythm, SVT in the setting of severe metabolic acidosis. Resolved with resolution of acidosis and fluids. VTE Prophylaxis: Wells risk score 0 XEnoxaparin 40 mg subQ once daily X Bilateral SCDs Patient is admitted to the inpatient service due to the severity of disease, risks of further disease progression and this stay is expected to exceed 2 midnights. Dispo: Admitted as inpatient, probable discharge to home in the next 1-2 days. Code status: Full code as discussed with the patient who identifies his mother as his surrogate and POA. [X] I have utilized all available immediate resources to obtain, update, or review of the patient's current medications VTE Deep Vein Thrombosis/Pulmonary Embolism Present on Admission: No MIPS - Admit I confirm the patient?s Advance Care Plan is present, Code status is documented, Surrogate decision maker is in patient?s record: Yes MIPS - DC The patient has current or prior documentation of left ventricular ejection fraction (LVEF) less than 40%, or moderate or severely depressed left ventricular systolic function.: No COVID-19 COVID-19 status: Positive Result date/Date tested (Pos, Neg/Pending): 08/03/22 Time Spent With Patient Critical Care time: I spent a total of [] minutes of critical care time on this patient's care today; this time is exclusive of procedural time.
--- NOTE | 2022-08-04 18:25 | P.DS_ITS ---
History of Present Illness History of Present Illness Date Patient Seen: 08/04/22 Time Patient Seen: 18:25 Chief complaint: seizure Narrative: Cong Luther is a 37-year-old male history of seizures and alcohol use disorder.? He presented to the ED today with seizure.? Unable to obtain a history from the patient as he is very somnolent.? He reportedly had urinary incontinence and is postictal.? Glucose was within normal limits.? Medics report an empty bottle of Keppra.? It appears that patient was seen and evaluated here on July 21 and July 26 at both discharges he was given prescription for Keppra.? Patient states that he is taking it not sure he is.? 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 What little he was able to tell me was that he had a drink right before he had a seizure and does not remember taking his medications. Head CT was negative for any acute intracranial process or injury. Chest x-ray indicated mild bilateral atypical pneumonia. He was administered 6 mg of IV Ativan in 2 doses, 1000 mg of IV Keppra, adenosine, ketorolac, oral sodium zirconium, and 2 doses of diltiazem in the emergency department, He was febrile on presentation with a T-max of 102.6, currently his temperature is 99.7?, blood pressure 169/89 heart rate 125 respiratory rate 22 oxygen saturation of 98% on room air he weighs 90.7 kg with a BMI of 26. CBC is unremarkable, ABG bicarb was 18 ABG total CO2 was 19 ABG pH was 7.3 sodium 133 potassium 5.4 chloride 103 serum bicarb 16 BUN 4 glucose 102 lactate was initially 18.3 in his come down to 5.9 calcium 8.1 AST 261 ALT 116 alk-phos 145 CK is 1.0 alcohol level was high at 19 and COVID-19 PCR was positive. Of note, patient has a stated history of seizures since the age of 7. This is his 12th ED admission since July of 2020 for seizures and/or running out of his seizure medication. Discharge Providers Provider Date of admission: 08/03/22 19:12 Discharge Date: 08/04/22 Primary care physician: Doctor Char MD Consults: 08/03/22 20:25 [place] [facility] [place] [facility] Routine Comment: 11th admit since 08/02, needs ETOH rehab, PCP Discharge provider: Jorge Connor DO Summary Hospital Course Discharge Diagnosis: Witnessed seizure, acute and present on admission, probable alcohol withdrawal with acute rhabdomyolysis. COVID 19 infection History of chronic medication non-adherance and polysubstance use JOSE L SVT Hospital Course: This is a 37 year old male admitted after a seizure. He had a marked lactic acidosis. Neurology was consulted from the ER by phone, whome recommended starting zonisamide 100 mg at bedtime given longer half life in setting of non- compliance. He was also continued on his home keppra as well. He had an SVT noted in the emergency likely due to his marked lactic acidosis which resolved with fluids. He was COVID 19 positive but was without any respiratory symptoms. His alcohol level was 19 and alcohol withdrawal seizure is a definite possibility in addition to his underlying seizure disorder. His lactate improved with fluid, and his initial JOSE L also improved with creatinine peaking at 1.7. The following day, however, he developed a rhabdomyolysis as CK mick to 2300. Fluids were continued, however the patient became more anxious and decided to leave against medical advice. He was counseled on the reasons for continued admission, including risk of worsening rhabdomyolysis and kidney failure. He was able to comprehend these risks and felt best to leave the hospital. He was not tremulous and able to ambulate on his own at the time he left. He was sent prescriptions for his seizure medications including keppra and the new zonisamide as he had reported being out of keppra. Time Spent with Patient Time spent: Greater than 30 minutes Exam Vital Signs (past 8 hours): - 08/04/22 12:18 08/04/22 12:00 Temperature 96.7 F L Pulse Rate 105 H Respiratory Rate 16 Blood Pressure 143/104 H Pulse Oximetry 16 L 96 Oxygen Delivery Method Room Air Oxygen Flow Rate 0 Oxygen Delivery Method Room Air Oxygen Flow Rate 0 Narrative Exam Narrative: General:? Patient is well developed and well nourished, agitated, anxious Musculoskeletal:? Muscle strength and tone are equal within normal limits, no deformity. Extremities: No edema or joint effusions. No cyanosis or clubbing. Neuro:? Alert and orientated x3, no gross deficits noted of cranial nerves. Psych:? Patient has a well-kept appearance, appropriate affect, mental status attitude thought context and judgment are appropriate for age. Objective Labs Result Diagrams: 08/04/22 06:07 08/04/22 12:50 Labs: Laboratory Results - last 24 hr 08/03/22 08/03/22 08/04/22 13:50 15:00 06:07 WBC 6.9 RBC 3.73 L Hgb 12.3 L Hct 37.1 L MCV 99.6 D MCH 33.1 MCHC 33.2 RDW 15.1 H Plt Count 113 L Neut % (Auto) 62.9 D Lymph % (Auto) 17.9 L [place] % (Auto) 19.0 H Eos % (Auto) 0.1 L Baso % (Auto) 0.1 Neut # (Auto) 4300 Lymph # (Auto) 1200 [place] # (Auto) 1300 H Eos # (Auto) 0 Baso # (Auto) 0 Sodium Potassium Chloride Carbon Dioxide BUN Creatinine Estimated GFR BUN/Creatinine Ratio Glucose Lactate 5.9 H* Calcium Magnesium Total Bilirubin AST ALT Alkaline Phosphatase Total Creatine Kinase Total Protein Albumin Globulin Albumin/Globulin Ratio A. baumannii (PCR) Not detected Korin albicans (PCR) Not detected C. glabrata (PCR) Not detected C. krusei (PCR) Not detected C. parapsilosis (PCR) Not detected C. tropicalis (PCR) Not detected Enterobacteriac sp PCR Not detected E. cloacae complex PCR Not detected Enterococcus sp PCR Not detected E. coli (PCR) Not detected H. influenzae (PCR) Not detected Klebsiella oxytoca PCR Not detected Klebsiella pneumoniae Not detected List. monocytogenes PCR Not detected N. meningitidis (PCR) Not detected Proteus species (PCR) Not detected Serratia marcescens PCR Not detected Staphylococcus sp PCR Detected H Staph aureus (PCR) Not detected mecA-Methicil Res Gene Not detected Streptococcus sp PCR Not detected Group A Strep (PCR) Not detected Strep agalactiae (PCR) Not detected Strep pneumoniae (PCR) Not detected P. aeruginosa (PCR) Not detected Foreign/B-Vanco Res Genes Not Reportable KPC-Carbap Res Gene PCR Not Reportable 08/04/22 08/04/22 08/04/22 06:07 12:50 12:50 WBC RBC Hgb Hct MCV MCH MCHC RDW Plt Count Neut % (Auto) Lymph % (Auto) [place] % (Auto) Eos % (Auto) Baso % (Auto) Neut # (Auto) Lymph # (Auto) [place] # (Auto) Eos # (Auto) Baso # (Auto) Sodium 135 L 134 L Potassium 3.8 D 3.9 Chloride 105 101 Carbon Dioxide 21 L 22 BUN 6 L 6 L Creatinine 1.43 H 1.17 Estimated GFR > 60 > 60 BUN/Creatinine Ratio 4.2 L 5.1 L Glucose 64 L 91 Lactate 1.1 Calcium 8.4 8.8 Magnesium 2.2 Total Bilirubin 0.5 0.6 AST 168 H 171 H ALT 105 H 100 H Alkaline Phosphatase 110 104 Total Creatine Kinase 2366 H D Total Protein 7.1 7.5 Albumin 3.6 3.8 Globulin 3.5 3.7 Albumin/Globulin Ratio 1.0 1.0 A. baumannii (PCR) Korin albicans (PCR) C. glabrata (PCR) C. krusei (PCR) C. parapsilosis (PCR) C. tropicalis (PCR) Enterobacteriac sp PCR E. cloacae complex PCR Enterococcus sp PCR E. coli (PCR) H. influenzae (PCR) Klebsiella oxytoca PCR Klebsiella pneumoniae List. monocytogenes PCR N. meningitidis (PCR) Proteus species (PCR) Serratia marcescens PCR Staphylococcus sp PCR Staph aureus (PCR) mecA-Methicil Res Gene Streptococcus sp PCR Group A Strep (PCR) Strep agalactiae (PCR) Strep pneumoniae (PCR) P. aeruginosa (PCR) Foreign/B-Vanco Res Genes KPC-Carbap Res Gene PCR PFSH Medical History Hypertension Seizures Social History Smoking Status: Current every day smoker alcohol intake: current Discharge Plan Discharge Plan Patient Disposition: Left Against Medical Advice Provider Discharge Comment: You were admitted to the hospital with seizure, complicated by rhabdomyolysis which can damage your kidneys. You chose to leave against medical advice. Your seizure medications were refilled, a new one started by neurology. Please follow up with your PCP as soon as possible. I frances mmend you do not drive given your seizure disorder. Discharge orders & Medications Prescriptions: New zonisamide 100 mg Capsule 100 mg PO BEDTIME 30 Days Qty: 30 0RF Continued amlodipine 5 mg Tablet 5 mg PO DAILY Qty: 30 0RF lisinopril 10 mg Tablet 10 mg PO DAILY Qty: 30 0RF levetiracetam [Keppra] 500 mg Tablet 1,000 mg PO Q12H 30 Days Qty: 120 0RF Discontinued levetiracetam [Keppra] 500 mg tablet 1,000 mg PO Q12H Qty: 180 2RF levetiracetam 1,000 mg tablet 1,000 mg PO BID Qty: 60 0RF amlodipine 5 mg tablet 5 mg PO DAILY Qty: 30 0RF lisinopril 10 mg tablet 10 mg PO DAILY Qty: 30 0RF amlodipine 5 mg tablet 5 mg PO DAILY Qty: 90 0RF lisinopril 10 mg tablet 10 mg PO BID Qty: 90 0RF levetiracetam 500 mg tablet 1,000 mg PO BID Qty: 180 0RF amlodipine 5 mg tablet 5 mg PO DAILY Qty: 30 0RF lisinopril 10 mg tablet 10 mg PO DAILY Qty: 30 0RF levetiracetam [Keppra] 1,000 mg tablet 1,000 mg PO BID Qty: 60 0RF Follow up/Referrals: Doctor Pardo MD [Primary Care Provider] - Diet/Activity/Treatments Diet: Diet as Tolerated Activity: As tolerated Discharge Data Primary Care Provider: Doctor Char
--- NOTE | 2022-08-04 18:56 | PC.NURSE ---
Pt is A&OX3, slightly hypertensive. Noted runny nose, but he denies flu symptoms. He arrives from ED this a.m. at approximately 1040 a.m. He does have slight shakes but denies CHAPPELL, n/v, sweating, agitation or anxiety initially. He is visited by his roomate and friend Jordy this afternoon and he reports he wants to leave AMA. After a discussion with MD and friend, he decides he will stay for monitoring. However this evening he gets anxious and states he can't stay in the room, and the bed moving is freaking him out and he needs to have a cigarette. He declined the nicotine patch and PRN ativan. notified and seizure medications escribed to [facility] for patient. He is escorted with all of his belongings to ED exit where he states he will walk to the pharmacy and walk home at 1838 this evening.
[2022-08-04 22:46] LABS: HBsAg Screen Negative (Negative); Hepatitis A Antibody IgM Negative (Negative); Hepatitis B Core Antibody IgM Negative (Negative); Hepatitis C Antibody 0.2 s/co ratio (0.0-0.9)
== END 2022-08-04 18:38 | disposition left against medical advice (07) | DRG 137 ==
LOC: ED 12:02 → AC 19:14
PROVIDERS: Nurse Practitioner Family; Admitting Provider Internal Medicine; Emergency Provider Emergency Medicine; Referring Provider Emergency Medicine; Visit Provider Internal Medicine
DX: U07.1 COVID-19 (principal); J12.82 Pneumonia due to coronavirus disease 2019; F17.200 Nicotine dependence, unspecified, uncomplicated; M62.82 Rhabdomyolysis; F10.239 Alcohol dependence with withdrawal, unspecified; E87.20 Acidosis, unspecified; N17.9 Acute kidney failure, unspecified; G40.909 Epilepsy, unspecified, not intractable, without status epilepticus; Y90.0 Blood alcohol level of less than 20 mg/100 ml; Z53.29 Procedure and treatment not carried out because of patient's decision for other reasons; Z91.14 Patient's other noncompliance with medication regimen
CPT/HCPCS: 0241U; 36415; 36600; 70450; 71045; 80053; 80074; 80320; 82550; 82553; 82805; 83605; 83690; 83735; 84145; 84484; 85025; 87040; 87147; 87150; 93005; 96365; 96366; 96367; 96375; 96376; 99285; 99291; 99292; J0131; J0153; J0696; J1650; J1885; J1953; J2060; J2405

== ENCOUNTER 2022-08-06 00:47 | Emergency (ER) | payer OTHER, MEDICAID, SELFPAY ==
[2022-08-04 15:03] VITALS: BMI 26.4
--- NOTE | 2022-08-06 01:14 | PC.NURSE ---
called no answer in waiting room
--- NOTE | 2022-08-06 01:36 | PC.NURSE ---
unable to locate pt, not in WR or bathrooms, security notified
--- NOTE | 2022-08-06 01:45 | PC.NURSE ---
security unable to locate pt after reviewing cameras and looking in hospital
== END 2022-08-06 01:56 | disposition left against medical advice (07) ==
PROVIDERS: Emergency Provider Emergency Medicine

== ENCOUNTER 2022-08-15 11:55 | Emergency (ER) | payer OTHER, MEDICAID, SELFPAY ==
[2022-08-04 15:03] VITALS: BMI 26.4
[2022-08-15] VITALS (11 sets, daily range): BP systolic 130–145; BP diastolic 87–101; PULSE 74–106; RESP 20; TEMP 36.2–37.2; O2SAT 97–100
[2022-08-15] MEDS: SODIUM CHLORIDE 0.9% 1,000 ML 1000 ML IV ×2 (12:44→13:54)
[2022-08-15 12:49] LABS: Add Manual Diff / Slide Review NO; Basophils Absolute Auto 0 /uL (0-100); Basophils Percent Auto 0.4 % (0-2); Eosinophils Absolute Auto 100 /uL (0-450); Eosinophils Percent Auto 0.8 % (2-4); Hematocrit 36.1 % (41-53); Hemoglobin 11.8 g/dL (13.5-17.5); Lymphocytes Absolute Auto 1000 /uL (1100-4500); Lymphocytes Percent Auto 13.7 % (25-40); Mean Corpuscular HGB Conc 32.7 % (30-36); Mean Corpuscular Hemoglobin 33.1 PG (26-34); Mean Corpuscular Volume 101.3 fL (80-100); Monocytes Absolute Auto 800 /uL (0-900); Monocytes Percent Auto 11.1 % (3-14); Neutrophils Absolute Auto 5400 /uL (1500-7000); Platelet Count 295 X10^3/uL (150-400); Red Blood Cell Count 3.57 X10^6/uL (4.5-5.9); Red Cell Distribution Width 15.6 % (11.6-14.8); White Blood Cell Count 7.3 X10^3/uL (4.5-11.0)
[2022-08-15 12:51] LABS: INR 0.9 (0.9-1.3); Prothrombin Time 10.6 SECONDS (10.1-12.7)
[2022-08-15 12:54] LABS: PTT Partial Thromboplastin Tim 26 SECONDS (26-36)
[2022-08-15 13:04] LABS: Alanine Aminotransferase 86 IU/L (<50); Albumin 3.8 g/dL (3.5-5.0); Alkaline Phosphatase 106 U/L (38-126); Aspartate Aminotransferase 124 IU/L (17-59); BUN Creatinine Ratio 4.3 (6-22); Bilirubin Total 0.6 mg/dL (0.2-1.3); Blood Urea Nitrogen 3 mg/dL (9-20); Carbon Dioxide 22 mmol/L (22-32); Chloride 100 mmol/L (98-107); Creatine Kinase 696 U/L (55-170); Estimated Glomerular Filt Rate > 60 mL/min (>60); Ethanol (ETOH) < 10 mg/dL; Globulin 3.7 g/dL (1.7-4.1); Glucose 101 mg/dL (70-100); HEMOLYSIS 39 (0-50); Sodium 135 mmol/L (137-145); Total Protein 7.5 g/dL (6.3-8.2)
[2022-08-15 13:15] LABS: Troponin I < 0.012 ng/mL (0.01-0.034)
[2022-08-15 13:19] LABS: CKMB % Relative Index 0.3 % (1.5-5.0); Creatine Kinase MB 1.84 ng/mL (<2.37)
[2022-08-15 13:20] LABS: Prolactin 24.6 ng/mL (3.7-17.9)
[2022-08-15 13:31] LABS: Influenza A - CEPHEID Flu A NEGATIVE (NEGATIVE); Influenza B - CEPHEID Flu B NEGATIVE (NEGATIVE); Respiratory Syncytial Virus Negative (Negative)
[2022-08-15 14:09] LABS: COVID-19 CEPHEID 4-PLEX PCR Negative (Negative)
--- NOTE | 2022-08-15 15:06 | ED.SEIZURE ---
HPI - Seizure General Chief Complaint: Seizure Stated Complaint: hx epilepsy, seizure Time Seen by Provider: 08/15/22 12:30 Source: patient and EMS Mode of arrival: EMS Limitations: no limitations History of Present Illness HPI Narrative: Patient brought in by ambulance from home. He lives in a trailer with a friend. Has history of seizures. Please see nursing notes for recent changes in seizure medication that has been increased in dosing. Was on Keppra. Patient is awake alert oriented x3 your at this time. He states he is usually a little ?foggy? after seizures. Denies any fall or injury no incontinence. No oral injury or tongue biting or abrasions. Patient denies any drug use or alcohol use. Zonisamide is his recent seizure medication. Patient denies any recent illness. No new stresses. No sleep changes. Patient has been here many times before for seizures. Diagnosed with seizures when he was 28 years old. No known cause. No history of head injury. Related Data Home Medications Medication Instructions Recorded Confirmed amlodipine 5 mg tablet 5 mg PO QAM 08/15/22 08/15/22 Previous Rx's Medication Instructions Recorded lisinopril 10 mg tablet 10 mg PO DAILY #30 tabs 09/26/20 zonisamide 100 mg capsule 100 mg PO BEDTIME 30 days #30 caps 08/04/22 Allergies Allergy/AdvReac Type Severity Reaction Status Date / Time No Known Drug Allergies Allergy Verified 08/03/22 11:48 Review of Systems Review of Systems Narrative: GENERAL: negative chills, fatigue, malaise, fever, sweats. HEENT: negative sinus pain, ear pain, sore throat RESPIRATORY: negative dyspnea, cough CARDIOVASCULAR: negative chest pain, palpitations GASTROINTESTINAL: negative nausea, vomiting, abdominal pain : negative dysuria, frequency, hematuria MUSCULOSKELETAL: negative muscle or bony pain SKIN: negative rash, skin lesions NEUROLOGIC: negative weakness, numbness, positive seizure ROS Unobtainable: All systems reviewed & are unremarkable except as noted in HPI and below Patient History Medical History Hypertension Seizures Social History Smoking Status: Current every day smoker alcohol intake: current Smoking Status: Current every day smoker alcohol intake frequency: 3 or more drinks per day Alcohol type: hard liquor Substance Use Type: marijuana Exam Narrative Exam Narrative: GENERAL: in no distress, not toxic not dyspneic HEAD: Normocephalic. EYES: Pupils equal round No scleral icterus. ENT: Mucous membranes moist. No tongue abrasion or lip abrasion. No blood in the mouth. NECK: Trachea midline. CARDIOVASCULAR: Regular rate and rhythm without murmurs RESPIRATORY: Clear to auscultation. Breath sounds equal bilaterally. No wheezes, rales, or rhonchi. GASTROINTESTINAL: Abdomen soft, non-tender EXTREMITIES: No gross deformities. BACK: No flank tenderness. NEURO: AOx3. Patient has clear speech. Knows today's date month and year. He knows he likely had a seizure. Clear speech no facial droop light touch intact bilateral face and hands with strong equal tire bladder maker SKIN: Warm and dry PSYCH: Not anxious, is cooperative Initial Vital Signs Initial Vital Signs: Vital Signs Temperature 97.1 F L 08/15/22 11:59 Pulse Rate 106 H 08/15/22 11:59 Respiratory Rate 20 08/15/22 11:59 Blood Pressure 144/101 H 08/15/22 11:59 Pulse Oximetry 97 08/15/22 11:59 Oxygen Delivery Method 08/15/22 11:59 Course Orders Ordered: Discontinued Medications Sodium Chloride (Normal Saline 0.9%) 1,000 mls @ 1,000 mls/hr IV BOLUS ONE Stop: 08/15/22 13:27 Last Infusion: 08/15/22 13:50 Dose: 0 mls/hr Documented By: Admin: 08/15/22 12:44 Dose: 1,000 mls/hr Documented By: CTS Sodium Chloride (Normal Saline 0.9%) 1,000 mls @ 1,000 mls/hr IV BOLUS ONE Stop: 08/15/22 14:19 Last Infusion: 08/15/22 15:32 Dose: 0 mls/hr Documented By: Admin: 08/15/22 13:54 Dose: 1,000 mls/hr Documented By: CTS Reevaluation(s) Reevaluation #1: Patient remains asymptomatic. Has recovered from his postictal state. He is awake alert oriented x4. Reviewed results with patient and return precautions reviewed with him. Primary care referral given to him. He desires discharge home Time: 15:11 Vital Signs Vital signs: Vital Signs - 8 hr 08/15/22 11:59 08/15/22 12:31 08/15/22 12:25 Temperature 97.1 F L 99 F Pulse Rate 106 H 91 H Respiratory Rate 20 Blood Pressure 144/101 H Pulse Oximetry 97 99 Oxygen Delivery Method Room Air 08/15/22 12:30 08/15/22 12:30 08/15/22 12:45 Temperature Pulse Rate 85 Respiratory Rate Blood Pressure 134/92 H 134/92 H Pulse Oximetry 99 Oxygen Delivery Method 08/15/22 12:45 08/15/22 13:00 08/15/22 13:00 Temperature Pulse Rate 77 79 Respiratory Rate Blood Pressure 145/93 H Pulse Oximetry 99 99 Oxygen Delivery Method 08/15/22 13:15 08/15/22 13:15 08/15/22 13:30 Temperature Pulse Rate 74 Respiratory Rate Blood Pressure 139/96 H 139/93 H Pulse Oximetry 98 Oxygen Delivery Method 08/15/22 13:30 08/15/22 13:45 08/15/22 13:45 Temperature Pulse Rate 86 82 Respiratory Rate Blood Pressure 130/88 Pulse Oximetry 100 98 Oxygen Delivery Method 08/15/22 14:00 08/15/22 14:00 08/15/22 14:15 Temperature Pulse Rate 80 Respiratory Rate Blood Pressure 131/89 134/87 Pulse Oximetry 98 Oxygen Delivery Method 08/15/22 14:15 Temperature Pulse Rate 82 Respiratory Rate Blood Pressure Pulse Oximetry 99 Oxygen Delivery Method MDM - Seizure Differential Diagnosis Differential diagnosis: Likely intractable seizure disorder, focal seizure, generalized seizure, epileptic seizure and status epilepticus Lab Data Result diagrams: 08/15/22 12:28 08/15/22 12:49 Labs: Lab Results 08/15/22 08/15/22 08/15/22 Range/Units 12:28 12:28 12:44 WBC 7.3 (4.5-11.0) X10^3/uL RBC 3.57 L (4.5-5.9) X10^6/uL Hgb 11.8 L (13.5-17.5) g/dL Hct 36.1 L (41-53) % MCV 101.3 H (80-100) fL MCH 33.1 (26-34) PG MCHC 32.7 (30-36) % RDW 15.6 H (11.6-14.8) % Plt Count 295 (150-400) X10^3/uL Neut % (Auto) 74.0 (50-75) % Lymph % (Auto) 13.7 L (25-40) % [place] % (Auto) 11.1 (3-14) % Eos % (Auto) 0.8 L (2-4) % Baso % (Auto) 0.4 (0-2) % Neut # (Auto) 5400 (5166-6735) /uL Lymph # (Auto) 1000 L (1022-6293) /uL [place] # (Auto) 800 (0-900) /uL Eos # (Auto) 100 (0-450) /uL Baso # (Auto) 0 (0-100) /uL PT 10.6 (10.1-12.7) SECONDS INR 0.9 (0.9-1.3) APTT 26 (26-36) SECONDS Sodium (137-145) mmol/L Potassium (3.4-5.1) mmol/L Chloride (98-107) mmol/L Carbon Dioxide (22-32) mmol/L BUN (9-20) mg/dL Creatinine (0.66-1.25) mg/dL Estimated GFR (>60) mL/min BUN/Creatinine Ratio (6-22) Glucose (70-100) mg/dL Calcium (8.4-10.2) mg/dL Total Bilirubin (0.2-1.3) mg/dL AST (17-59) IU/L ALT (<50) IU/L Alkaline Phosphatase (38-126) U/L Total Creatine Kinase (55-170) U/L CK-MB (CK-2) (<2.37) ng/mL CK-MB (CK-2) Rel Index (1.5-5.0) % Troponin I (0.01-0.034) ng/mL Total Protein (6.3-8.2) g/dL Albumin (3.5-5.0) g/dL Globulin (1.7-4.1) g/dL Albumin/Globulin Ratio (1.0-2.8) Prolactin (3.7-17.9) ng/mL U Opiates 300ng/mL cut (Negative) Ur Oxycodone Screen (Negative) Urine Methadone Screen (Negative) Ur Barbiturates Screen (Negative) U Tricyclic Antidepress (Negative) Ur Phencyclidine Scrn (Negative) Ur Amphetamines Screen (Negative) U Methamphetamines Scrn (Negative) Ur MDMA Scrn (Ecstasy) (Negative) U Benzodiazepines Scrn (Negative) Urine Cocaine Screen (Negative) U Marijuana (THC) Screen (Negative) Ethyl Alcohol ( - 10) mg/dL SARS-CoV-2 (PCR) Negative (Negative) Influenza A (RT-PCR) Flu a negative (NEGATIVE) Influenza B (RT-PCR) Flu b negative (NEGATIVE) RSV (PCR) Negative (Negative) 08/15/22 08/15/22 08/15/22 Range/Units 12:49 12:49 15:25 WBC (4.5-11.0) X10^3/uL RBC (4.5-5.9) X10^6/uL Hgb (13.5-17.5) g/dL Hct (41-53) % MCV (80-100) fL MCH (26-34) PG MCHC (30-36) % RDW (11.6-14.8) % Plt Count (150-400) X10^3/uL Neut % (Auto) (50-75) % Lymph % (Auto) (25-40) % [place] % (Auto) (3-14) % Eos % (Auto) (2-4) % Baso % (Auto) (0-2) % Neut # (Auto) (5341-5660) /uL Lymph # (Auto) (4571-3466) /uL [place] # (Auto) (0-900) /uL Eos # (Auto) (0-450) /uL Baso # (Auto) (0-100) /uL PT (10.1-12.7) SECONDS INR (0.9-1.3) APTT (26-36) SECONDS Sodium 135 L (137-145) mmol/L Potassium 4.0 (3.4-5.1) mmol/L Chloride 100 (98-107) mmol/L Carbon Dioxide 22 (22-32) mmol/L BUN 3 L (9-20) mg/dL Creatinine 0.69 (0.66-1.25) mg/dL Estimated GFR > 60 (>60) mL/min BUN/Creatinine Ratio 4.3 L (6-22) Glucose 101 H (70-100) mg/dL Calcium 9.0 (8.4-10.2) mg/dL Total Bilirubin 0.6 (0.2-1.3) mg/dL AST 124 H (17-59) IU/L ALT 86 H (<50) IU/L Alkaline Phosphatase 106 (38-126) U/L Total Creatine Kinase 696 H (55-170) U/L CK-MB (CK-2) 1.84 (<2.37) ng/mL CK-MB (CK-2) Rel Index 0.3 L (1.5-5.0) % Troponin I < 0.012 (0.01-0.034) ng/mL Total Protein 7.5 (6.3-8.2) g/dL Albumin 3.8 (3.5-5.0) g/dL Globulin 3.7 (1.7-4.1) g/dL Albumin/Globulin Ratio 1.0 (1.0-2.8) Prolactin 24.6 H (3.7-17.9) ng/mL U Opiates 300ng/mL cut Negative (Negative) Ur Oxycodone Screen Negative (Negative) Urine Methadone Screen Negative (Negative) Ur Barbiturates Screen Negative (Negative) U Tricyclic Antidepress Negative (Negative) Ur Phencyclidine Scrn Negative (Negative) Ur Amphetamines Screen Negative (Negative) U Methamphetamines Scrn Negative (Negative) Ur MDMA Scrn (Ecstasy) Negative (Negative) U Benzodiazepines Scrn Positive H (Negative) Urine Cocaine Screen Positive H (Negative) U Marijuana (THC) Screen Positive H (Negative) Ethyl Alcohol < 10 ( - 10) mg/dL SARS-CoV-2 (PCR) (Negative) Influenza A (RT-PCR) (NEGATIVE) Influenza B (RT-PCR) (NEGATIVE) RSV (PCR) (Negative) Urine Dip Bedside Urine Glucose Negative Bedside Urine Bilirubin - Negative Bedside Urine Ketone - Negative Urine Specific [place] 1.000 Bedside Urine Occult Blood - Negative Bedside Urine pH 8.0 Bedside Urine Protein - Negative Bedside Urine Urobilinogen - Negative Bedside Urine Nitrite - Negative Bedside Urine Leukocytes - Negative Esterase MDM Narrative Medical decision making narrative: Patient brought in by ambulance from home. He lives in a trailer with a friend. Has history of seizures. Please see nursing notes for recent changes in seizure medication that has been increased in dosing. Was on Keppra. Patient is awake alert oriented x3 your at this time. He states he is usually a little ?foggy? after seizures. Denies any fall or injury no incontinence. No oral injury or tongue biting or abrasions. Patient denies any drug use or alcohol use. Zonisamide is his recent seizure medication. Patient denies any recent illness. No new stresses. No sleep changes. Patient has been here many times before for seizures. Diagnosed with seizures when he was 28 years old. No known cause. No history of head injury. Given patient's clinical presentation and medical history, laboratory studies and seizure precautions were done. At this time no Ativan indicated. We will continue to monitor patient and reassess for improvement. He is near baseline at this time. He states he is feeling much better since arrival. 3:12 p.m.. Patient awake alert oriented x4. Reviewed results with him they are reassuring. Likely did have a seizure. IV fluids were given to him. Appropriate for discharge home. Patient has not had any seizure here. He does have seizure medications and I will provide him primary care referral. Prescription bottles brought with him were prescribed by providers here at this hospital. He will need long-term care and primary care. Return precautions reviewed with him. He desires discharge home. No CT scan imaging indicated. Patient has long history of seizures. Fall or injury. Patient did not give urine specimen. He states he is unable to urinate to give specimen. 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 IV fluids were given to patient, CPK noted. Discharge Plan Departure Patient Disposition: Home Clinical Impression: Seizure Instructions: DI for Seizure Disorder -- Adult Activity Restrictions/Additional Instructions: See family doctor this week for re-evaluation. Call provided primary care referral phone number to establish family doctor. Call [phone]. Please continue your home medications and seizure medications. Be sure to keep well hydrated and get plenty of rest. Again, no driving or operating machinery has you have history of seizures. Return if worse if any questions or concerns Prescriptions: No Action lisinopril 10 mg Tablet 10 mg PO DAILY Qty: 30 0RF zonisamide 100 mg Capsule 100 mg PO BEDTIME 30 Days Qty: 30 0RF amlodipine 5 mg tablet 5 mg PO QAM Referrals: Miscellaneous,DoctorMD [Primary Care Provider] -
[2022-08-15 15:38] LABS: UR Morphine/Opiate cutoff 300 Negative (Negative); Ur Creatinine Normal (Normal); Ur Specific Gravity Normal (Normal); Urine Amphetamines Negative (Negative); Urine Barbiturates Negative (Negative); Urine Benzodiazepines Positive (Negative); Urine Cocaine Positive (Negative); Urine MDMA Negative (Negative); Urine Methadone Negative (Negative); Urine Methamphetamines Negative (Negative); Urine Oxycodone Negative (Negative); Urine Phencyclidine Negative (Negative); Urine Tetrahydrocannabinol Positive (Negative); Urine Tricyclic Antidepressant Negative (Negative); Urine pH Normal (Normal)
== END 2022-08-15 15:15 | disposition home or self-care (01) ==
PROVIDERS: Emergency Provider Emergency Medicine
DX: G40.909 Epilepsy, unspecified, not intractable, without status epilepticus (principal); Z20.822 Contact with and (suspected) exposure to COVID-19
CPT/HCPCS: 0241U; 36415; 80053; 80305; 80320; 81003; 82550; 82553; 84146; 84484; 85025; 85610; 85730; 96360; 96361; 99284

== ENCOUNTER 2022-08-27 17:47 | Emergency (ER) | payer OTHER, MEDICAID, SELFPAY ==
[2022-08-04 15:03] VITALS: BMI 26.4
[2022-08-27] VITALS (23 sets, daily range): BP systolic 123–157; BP diastolic 69–104; PULSE 94–150; RESP 16–44; TEMP 36.8; O2SAT 93–99
--- NOTE | 2022-08-27 17:51 | ED.SEIZURE ---
HPI - Seizure General Chief Complaint: Seizure Stated Complaint: seizure Time Seen by Provider: 08/27/22 18:01 Related Data Home Medications Medication Instructions Recorded Confirmed amlodipine 5 mg tablet 5 mg PO QAM 08/15/22 08/15/22 Previous Rx's Medication Instructions Recorded lisinopril 10 mg tablet 10 mg PO DAILY #30 tabs 09/26/20 zonisamide 100 mg capsule 100 mg PO BEDTIME 30 days #30 caps 08/04/22 Allergies Allergy/AdvReac Type Severity Reaction Status Date / Time No Known Drug Allergies Allergy Verified 08/03/22 11:48 Patient History Medical History Hypertension Seizures Social History Smoking Status: Current every day smoker alcohol intake: current Smoking Status: Current every day smoker alcohol intake frequency: 3 or more drinks per day Alcohol type: hard liquor Substance Use Type: marijuana Exam Initial Vital Signs Initial Vital Signs: Vital Signs Pulse Rate 106 H 08/27/22 17:50 Respiratory Rate 20 08/27/22 17:50 Pulse Oximetry 99 08/27/22 17:50 Oxygen Delivery Method 08/27/22 17:50 Course Orders Ordered: ED Orders 08/27/22 17:45 Complete Blood Count AUTO DIFF Stat Comprehensive Metabolic Panel Stat Ethanol (ETOH) Routine Lactate (Lactic Acid) Routine Lipase Stat Magnesium Stat Partial Thromboplastin Time Stat Prothrombin Time INR Stat Troponin & CK Cardiac Panel Stat 08/27/22 17:53 XR chest 1V Stat COVID19 -Nasal RAPID/Pre-Proc Stat EKG-12 Lead Stat 08/27/22 18:10 Covid-19 + FLU A/B + RSV - PCR Stat Discontinued Medications Aspirin (Aspirin 81 Mg Chew Tab) 324 mg PO NOW ONE Stop: 08/27/22 17:54 Levetiracetam 1,000 mg/ Sodium (Chloride) 110 mls @ 440 mls/hr IV NOW ONE Stop: 08/27/22 18:03 Last Admin: 08/27/22 18:06 Dose: 440 mls/hr Documented By: AT Vital Signs Vital signs: Vital Signs - 8 hr 08/27/22 17:50 Pulse Rate 106 H Respiratory Rate 20 Pulse Oximetry 99 Oxygen Delivery Method Room Air MDM - Seizure Lab Data Result diagrams: 08/27/22 17:45 08/27/22 17:45 Discharge Plan Departure Prescriptions: No Action lisinopril 10 mg Tablet 10 mg PO DAILY Qty: 30 0RF zonisamide 100 mg Capsule 100 mg PO BEDTIME 30 Days Qty: 30 0RF amlodipine 5 mg tablet 5 mg PO QAM Referrals: Miscellaneous,Doctor, [Primary Care Provider] -
--- NOTE | 2022-08-27 17:53 | DI.RAD.S_ITS ---
PROCEDURE: XR CHEST 1V INDICATIONS: chest pain TECHNIQUE: One view of the chest was acquired. COMPARISON: [facility], CR, XR CHEST 1V, 08/03/2022, 17:52. FINDINGS: Surgical changes and devices: None. Lungs and pleura: Lungs are clear. No pleural effusions or pneumothorax. Mediastinum: Mediastinal contours appear normal. Heart size is normal. Bones and chest wall: No suspicious bony lesions. Overlying soft tissues appear unremarkable. IMPRESSION: No acute cardiopulmonary pathology. Dictated by: Pb Bruce M.D. on 08/27/2022 at 19:45 Approved by: Pb Bruce M.D. on 08/27/2022 at 19:45
[2022-08-27] MEDS: LORazepam 2 MG/ML INJ IV (17:55)
[2022-08-27] MEDS: levETIRAcetam 1,000 MG in SODIUM CHLORIDE 0.9% 100 ML 440 MG IV (18:06)
--- NOTE | 2022-08-27 18:12 | PC.NURSE ---
At 1754 patient eyes rolled back of head, pt tensed arms up to chest and full body shaking. Additional staff and Dr. Naranjo called to bedside, airway maintained and suction utilized, turned pt to side. Pt bit tongue and incontinent of urine during. episode. Lasted approximately 3 minutes. HR up to 150's, pt currently looking around room and moving extremities independently, following some commands, not verbally responding.
--- NOTE | 2022-08-27 18:13 | ED_ITS ---
HPI - Seizure General Chief Complaint: Seizure Stated Complaint: seizure Time Seen by Provider: 08/27/22 18:01 Source: patient and EMS Mode of arrival: EMS Limitations: no limitations History of Present Illness HPI Narrative: This is a 37-year-old male with history of seizure disorder, chronic alcohol use and hypertension. Patient has been seen here before for seizure activity. Patient has reportedly been switched from Keppra to zonisamide recently. Patient had reported seizure activity at home today, was postictal upon arrival. EMS had not given any medications. Patient had additional 2 minutes of seizure tonic-clonic activity which is his typical seizure activity. Patient received Ativan here in the department. This occurred prior to my arrival for my shift this evening patient was seen shortly thereafter. Patient is alert, he is still bit confused denies any pain, denies any chest pain or shortness of breath, no nausea or vomiting, no fevers. Patient did have some urinary incontinence with his seizure activity in the department. Patient does have a laceration his inner lip. Patient does not recall the events from earlier today when he had his seizure activity witnessed at home. He does not have a history of any major surgeries, does still drink alcohol. Uses marijuana but no other illicit drugs. Does follow with Neurology. Related Data Home Medications Medication Instructions Recorded Confirmed amlodipine 5 mg tablet 5 mg PO QAM 08/15/22 08/15/22 Previous Rx's Medication Instructions Recorded lisinopril 10 mg tablet 10 mg PO DAILY #30 tabs 09/26/20 zonisamide 100 mg capsule 100 mg PO BEDTIME 30 days #30 caps 08/04/22 Allergies Allergy/AdvReac Type Severity Reaction Status Date / Time No Known Drug Allergies Allergy Verified 08/03/22 11:48 Review of Systems Review of Systems ROS Unobtainable: All systems reviewed & are unremarkable except as noted in HPI and below Patient History Medical History Hypertension Seizures Social History Smoking Status: Current every day smoker alcohol intake: current Smoking Status: Current every day smoker alcohol intake frequency: 3 or more drinks per day Alcohol type: hard liquor Substance Use Type: marijuana Exam Narrative Exam Narrative: GEN: well nourished, well appearing male, alert and oriented to self location, answer some questions but still has some mild confusion, patient appears to be in mild distress. Patient appears postictal. HEENT: Atraumatic, pupils are equal round reactive to light, extraocular movements are intact, nares are clear, TMs are clear with no fluid, there is no conjunctival pallor. Throat is clear without any exudates, erythema, tonsillar enlargement or uvular deviation, patient has stellate laceration of the inner lip that is not through and through on the bottom. Does not appear to require suturing. HEART: Tachycardic but Regular rate and rhythm without murmur, clicks, rubs. Pulses are equal in upper and lower extremities LUNGS:Lungs clear to auscultation, no wheezes, rales, crackles, chest moves symmetrically ABD:bowel sounds normal, soft, non-tender, no guarding, rebound, rigidity, no masses noted, no hepatosplenomegaly :No CVA tenderness MSCL: Non-tender, no muscle atrophy, muscles strength 5/5 upper and lower extremities, full range of motion. NEURO:CN 2-12 intact, sensation normal, reflexes 2/4 upper and lower extremities. Patient moving all 4 extremities independently. GCS 14. Initial Vital Signs Initial Vital Signs: Vital Signs Pulse Rate 106 H 08/27/22 17:50 Respiratory Rate 20 08/27/22 17:50 Pulse Oximetry 99 08/27/22 17:50 Oxygen Delivery Method 08/27/22 17:50 Course Orders Ordered: Discontinued Medications Aspirin (Aspirin 81 Mg Chew Tab) 324 mg PO NOW ONE Stop: 08/27/22 17:54 Last Admin: 08/27/22 19:05 Dose: Not Given Documented By: CAMILO Levetiracetam 1,000 mg/ Sodium (Chloride) 110 mls @ 440 mls/hr IV NOW ONE Stop: 08/27/22 18:03 Last Infusion: 08/27/22 18:34 Dose: 0 mls/hr Documented By: Admin: 08/27/22 18:06 Dose: 440 mls/hr Documented By: AT Sodium Chloride (Normal Saline 0.9%) 1,000 mls @ 1,000 mls/hr IV BOLUS ONE Stop: 08/27/22 19:34 Last Infusion: 08/27/22 20:26 Dose: 0 mls/hr Documented By: Admin: 08/27/22 18:36 Dose: 1,000 mls/hr Documented By: AT Sodium Chloride (Normal Saline 0.9%) 1,000 mls @ 1,000 mls/hr IV BOLUS ONE Stop: 08/27/22 21:54 Last Infusion: 08/27/22 22:09 Dose: 0 mls/hr Documented By: Admin: 08/27/22 21:03 Dose: 1,000 mls/hr Documented By: AT Lorazepam (Lorazepam 2 Mg/Ml Inj) 1 mg IV NOW ONE Stop: 08/27/22 17:55 Last Admin: 08/27/22 18:37 Dose: Not Given Documented By: JUNIE Lorazepam (Lorazepam 2 Mg/Ml Inj) 2 mg IV NOW ONE Stop: 08/27/22 17:55 Last Admin: 08/27/22 17:55 Dose: 2 mg Documented By: JUNIE Reevaluation(s) Reevaluation #1: Patient has had significant improvement and appears to be back to baseline. He states he has not had any alcohol for about 2 or 3 days. I did ask about other illicit he states none but I asked about testing positive for cocaine on the 2nd he states he has been using intermittently. Patient is unsure of his exact medications he thinks he is on amlodipine, lisinopril, Keppra and he says trazodone but states it might be zonisamide. We did discuss that alcohol as well as other substances is going to decrease his these or threshold and they can have seizures regularly despite medication. He states he does not currently have a neurologist he follows with his primary care doctor Riky who prescribes his medications. Time: 17:30 Reevaluation #2: Patient's mentation is significantly improved. He is answering questions appropriately. Patient being ambulated in the department appears ambulate safely and has returned to baseline. Time: 22:30 Reevaluation #3: Patient feels comfortable returning his roommate is at home they can not come get him so will plan to cab voucher home and roommate will meet him there. Patient feels comfortable plan and he appears safe for disposition at this time. Time: 23:02 Vital Signs Vital signs: Vital Signs - 8 hr 08/27/22 17:50 08/27/22 18:33 08/27/22 18:00 Temperature 98.2 F Pulse Rate 106 H 131 H Respiratory Rate 20 23 Blood Pressure Pulse Oximetry 99 Oxygen Delivery Method Room Air 08/27/22 18:05 08/27/22 18:05 08/27/22 18:10 Temperature Pulse Rate 141 H Respiratory Rate 27 H Blood Pressure 157/88 H 154/70 H Pulse Oximetry 98 Oxygen Delivery Method Room Air 08/27/22 18:10 08/27/22 18:15 08/27/22 18:15 Temperature Pulse Rate 146 H 136 H Respiratory Rate 25 H 25 H Blood Pressure 130/69 Pulse Oximetry 97 Oxygen Delivery Method 08/27/22 18:21 08/27/22 18:21 08/27/22 18:30 Temperature Pulse Rate 150 H Respiratory Rate 26 H Blood Pressure 131/85 127/72 Pulse Oximetry 97 Oxygen Delivery Method 08/27/22 18:30 08/27/22 18:47 08/27/22 18:47 Temperature Pulse Rate 126 H 123 H Respiratory Rate 20 19 Blood Pressure 129/81 Pulse Oximetry 97 97 Oxygen Delivery Method 08/27/22 18:50 08/27/22 18:50 08/27/22 19:00 Temperature Pulse Rate 119 H Respiratory Rate 18 Blood Pressure 128/79 131/78 Pulse Oximetry 96 Oxygen Delivery Method 08/27/22 19:00 08/27/22 19:30 08/27/22 19:48 Temperature Pulse Rate 121 H 119 H 111 H Respiratory Rate 18 18 17 Blood Pressure Pulse Oximetry 94 96 97 Oxygen Delivery Method 08/27/22 19:48 08/27/22 20:00 08/27/22 20:00 Temperature Pulse Rate 100 H Respiratory Rate 18 Blood Pressure 123/82 128/86 Pulse Oximetry 96 Oxygen Delivery Method 08/27/22 20:30 08/27/22 20:30 08/27/22 21:00 Temperature Pulse Rate 115 H Respiratory Rate 22 Blood Pressure 130/83 131/87 Pulse Oximetry 98 Oxygen Delivery Method Room Air 08/27/22 21:00 08/27/22 21:30 08/27/22 21:30 Temperature Pulse Rate 105 H 97 H Respiratory Rate 16 20 Blood Pressure 128/86 Pulse Oximetry 93 97 Oxygen Delivery Method Room Air Room Air 08/27/22 22:00 08/27/22 22:01 08/27/22 22:01 Temperature Pulse Rate 129 H 129 H Respiratory Rate 44 H 22 Blood Pressure 136/104 H Pulse Oximetry 98 97 Oxygen Delivery Method Room Air Room Air 08/27/22 22:30 Temperature Pulse Rate 120 H Respiratory Rate Blood Pressure Pulse Oximetry 97 Oxygen Delivery Method Room Air MDM - Seizure Lab Data Result diagrams: 08/27/22 17:45 08/27/22 19:11 Labs: Lab Results 08/27/22 08/27/22 08/27/22 Range/Units 17:45 17:45 18:08 WBC 8.2 (4.5-11.0) X10^3/uL RBC 4.05 L (4.5-5.9) X10^6/uL Hgb 13.7 (13.5-17.5) g/dL Hct 40.8 L (41-53) % MCV 100.9 H (80-100) fL MCH 33.9 (26-34) PG MCHC 33.6 (30-36) % RDW 16.3 H (11.6-14.8) % Plt Count 349 (150-400) X10^3/uL Neut % (Auto) 49.5 L (50-75) % Lymph % (Auto) 35.2 (25-40) % Giles % (Auto) 13.4 (3-14) % Eos % (Auto) 1.1 L (2-4) % Baso % (Auto) 0.8 (0-2) % Neut # (Auto) 4100 (7352-3954) /uL Lymph # (Auto) 2900 (3797-4638) /uL Giles # (Auto) 1100 H (0-900) /uL Eos # (Auto) 100 (0-450) /uL Baso # (Auto) 100 (0-100) /uL PT 10.4 (10.1-12.7) SECONDS INR 0.9 (0.9-1.3) APTT 26 (26-36) SECONDS Sodium (137-145) mmol/L Potassium (3.4-5.1) mmol/L Chloride (98-107) mmol/L Carbon Dioxide (22-32) mmol/L BUN (9-20) mg/dL Creatinine (0.66-1.25) mg/dL Estimated GFR (>60) mL/min BUN/Creatinine Ratio (6-22) Glucose (70-100) mg/dL Lactate (0.7-2.1) mmol/L Calcium (8.4-10.2) mg/dL Magnesium (1.6-2.3) mg/dL Total Bilirubin (0.2-1.3) mg/dL AST (17-59) IU/L ALT (<50) IU/L Alkaline Phosphatase (38-126) U/L Total Creatine Kinase (55-170) U/L CK-MB (CK-2) (<2.37) ng/mL CK-MB (CK-2) Rel Index (1.5-5.0) % Troponin I (0.01-0.034) ng/mL Total Protein (6.3-8.2) g/dL Albumin (3.5-5.0) g/dL Globulin (1.7-4.1) g/dL Albumin/Globulin Ratio (1.0-2.8) Lipase (23-300) U/L Ethyl Alcohol ( - 10) mg/dL SARS-CoV-2 (PCR) Negative (Negative) Influenza A (RT-PCR) Flu a negative (NEGATIVE) Influenza B (RT-PCR) Flu b negative (NEGATIVE) RSV (PCR) Negative (Negative) 08/27/22 08/27/22 08/27/22 Range/Units 19:11 19:11 19:11 WBC (4.5-11.0) X10^3/uL RBC (4.5-5.9) X10^6/uL Hgb (13.5-17.5) g/dL Hct (41-53) % MCV (80-100) fL MCH (26-34) PG MCHC (30-36) % RDW (11.6-14.8) % Plt Count (150-400) X10^3/uL Neut % (Auto) (50-75) % Lymph % (Auto) (25-40) % Giles % (Auto) (3-14) % Eos % (Auto) (2-4) % Baso % (Auto) (0-2) % Neut # (Auto) (1040-5470) /uL Lymph # (Auto) (2787-2674) /uL Giles # (Auto) (0-900) /uL Eos # (Auto) (0-450) /uL Baso # (Auto) (0-100) /uL PT (10.1-12.7) SECONDS INR (0.9-1.3) APTT (26-36) SECONDS Sodium 133 L (137-145) mmol/L Potassium 4.1 (3.4-5.1) mmol/L Chloride 99 (98-107) mmol/L Carbon Dioxide 18 L (22-32) mmol/L BUN 6 L (9-20) mg/dL Creatinine 0.93 (0.66-1.25) mg/dL Estimated GFR > 60 (>60) mL/min BUN/Creatinine Ratio 6.5 (6-22) Glucose 108 H (70-100) mg/dL Lactate 7.1 H* (0.7-2.1) mmol/L Calcium 8.9 (8.4-10.2) mg/dL Magnesium 2.1 (1.6-2.3) mg/dL Total Bilirubin 0.4 (0.2-1.3) mg/dL AST 65 H (17-59) IU/L ALT 39 (<50) IU/L Alkaline Phosphatase 127 H (38-126) U/L Total Creatine Kinase 128 (55-170) U/L CK-MB (CK-2) 1.75 (<2.37) ng/mL CK-MB (CK-2) Rel Index 1.4 L (1.5-5.0) % Troponin I < 0.012 (0.01-0.034) ng/mL Total Protein 7.6 (6.3-8.2) g/dL Albumin 3.9 (3.5-5.0) g/dL Globulin 3.7 (1.7-4.1) g/dL Albumin/Globulin Ratio 1.1 (1.0-2.8) Lipase 280 (23-300) U/L Ethyl Alcohol < 10 ( - 10) mg/dL SARS-CoV-2 (PCR) (Negative) Influenza A (RT-PCR) (NEGATIVE) Influenza B (RT-PCR) (NEGATIVE) RSV (PCR) (Negative) 08/27/22 Range/Units 21:21 WBC (4.5-11.0) X10^3/uL RBC (4.5-5.9) X10^6/uL Hgb (13.5-17.5) g/dL Hct (41-53) % MCV (80-100) fL MCH (26-34) PG MCHC (30-36) % RDW (11.6-14.8) % Plt Count (150-400) X10^3/uL Neut % (Auto) (50-75) % Lymph % (Auto) (25-40) % Giles % (Auto) (3-14) % Eos % (Auto) (2-4) % Baso % (Auto) (0-2) % Neut # (Auto) (5644-6393) /uL Lymph # (Auto) (6344-5710) /uL Giles # (Auto) (0-900) /uL Eos # (Auto) (0-450) /uL Baso # (Auto) (0-100) /uL PT (10.1-12.7) SECONDS INR (0.9-1.3) APTT (26-36) SECONDS Sodium (137-145) mmol/L Potassium (3.4-5.1) mmol/L Chloride (98-107) mmol/L Carbon Dioxide (22-32) mmol/L BUN (9-20) mg/dL Creatinine (0.66-1.25) mg/dL Estimated GFR (>60) mL/min BUN/Creatinine Ratio (6-22) Glucose (70-100) mg/dL Lactate 1.3 (0.7-2.1) mmol/L Calcium (8.4-10.2) mg/dL Magnesium (1.6-2.3) mg/dL Total Bilirubin (0.2-1.3) mg/dL AST (17-59) IU/L ALT (<50) IU/L Alkaline Phosphatase (38-126) U/L Total Creatine Kinase (55-170) U/L CK-MB (CK-2) (<2.37) ng/mL CK-MB (CK-2) Rel Index (1.5-5.0) % Troponin I (0.01-0.034) ng/mL Total Protein (6.3-8.2) g/dL Albumin (3.5-5.0) g/dL Globulin (1.7-4.1) g/dL Albumin/Globulin Ratio (1.0-2.8) Lipase (23-300) U/L Ethyl Alcohol ( - 10) mg/dL SARS-CoV-2 (PCR) (Negative) Influenza A (RT-PCR) (NEGATIVE) Influenza B (RT-PCR) (NEGATIVE) RSV (PCR) (Negative) Imaging Data CT scan - head: Radiologist's Impression: Close Head CT (Signed) Pb Bruce - 08/27/22 Chest X-Ray (Signed) Pb Bruce - 08/27/22 Telemetry Strips 08/03/22 Chest X-Ray (Signed) Higinio Novoa - 08/03/[address] (Signed) Bijan Feliz - 08/03/22 Chest CTA (Signed) Abram White - 05/11/22 Shoulder X-Ray (Signed) RoscAbram molina - 05/11/[address] (Signed) Santy Alonzo - 05/11/22 Chest X-Ray (Signed) Raul Solorzano - 05/11/22 Shoulder X-Ray (Signed) Flash Belle - 01/02/21 Shoulder X-Ray (Signed) Flash Belle - 01/02/21 Shoulder X-Ray (Signed) Jarret Floyd - 01/01/21 Shoulder X-Ray (Signed) Santy Alonzo - 09/26/[address] (Signed) Santy Alonzo - 09/26/20 Shoulder X-Ray (Signed) Nichol Alcaraz - 08/04/[address] (Signed) Nichol Alcaraz - 08/04/[address] (Signed) Nichol Alcaraz - 08/04/20 [place] [address] CT Scan Report Signed Patient: Cong Luther MR#: [id number] : 1985 Acct:[id number] Age/Sex: 37 / M Date of Service: 08/27/22 Loc: ED Accession Number: [id number] ?? Procedure: CT head/brain wo con Ordering Provider: Gracie Goldstein D.O. PROCEDURE:? CT HEAD/BRAIN WO CON ? INDICATIONS:? seizure ? TECHNIQUE:? Noncontrast 4.5 mm thick angled axial sections acquired from the foramen magnum to the vertex, with coronal and sagittal reformats.? For radiation dose reduction, the following was used:? automated exposure control, adjustment of mA and/or kV according to patient size.? ? COMPARISON:? [facility], CT, CT HEAD/BRAIN WO CON, 08/03/2022, 13:07. ? FINDINGS:? Image quality:? Excellent.? ? CSF spaces:? Basal cisterns are patent.? No extra-axial fluid collections.? Ventricles are normal in size and shape.? ? Brain:? No midline shift.? No intracranial masses or hemorrhage.? Saul-white matter interface is normal.? ? Skull and face:? Calvarium and visualized facial bones are intact, without suspicious lesions.? ? Sinuses:? Visualized sinuses and mastoids are clear.? ? IMPRESSION:? No CT evidence of acute intracranial abnormalities. ? ? Dictated by: Pb Bruce M.D. on 08/27/2022 at 19:47 ? ? Approved by: Pb Bruce M.D. on 08/27/2022 at 19:48?? Chest x-ray: Radiologist's Impression: [place] [address] XRay Report Signed Patient: Cong Luther MR#: [id number] : 1985 Acct:[id number] Age/Sex: 37 / M Date of Service: 08/27/22 Loc: ED Accession Number: [id number] ?? Procedure: XR chest 1V Ordering Provider: Sushant Naranjo D.O. PROCEDURE:? XR CHEST 1V ? INDICATIONS:? chest pain ? TECHNIQUE:? One view of the chest was acquired.? ? COMPARISON:? [facility], CR, XR CHEST 1V, 08/03/2022, 17:52. ? FINDINGS:? ? Surgical changes and devices:? None.? ? Lungs and pleura:? Lungs are clear.? No pleural effusions or pneumothorax.? ? Mediastinum:? Mediastinal contours appear normal.? Heart size is normal.? ? Bones and chest wall:? No suspicious bony lesions.? Overlying soft tissues appe ar unremarkable.? ? IMPRESSION:? No acute cardiopulmonary pathology. ? ? Dictated by: Pb Bruce M.D. on 08/27/2022 at 19:45 ? ? Approved by: Pb Bruce M.D. on 08/27/2022 at 19:45?? ECG Data Attestation: I personally reviewed and interpreted this ECG as follows: Prior ECG tracings: available for review Interpretation: Sinus tachycardia rate of 127 KS 166 QRS of 92 and QTC of 438. No acute ST elevation noted. No change from prior 08/03/2022. MDM Narrative Medical decision making narrative: 37-year-old man with known seizure disorder, is reportedly on zonisamide currently has been on Keppra in the past, does continue to drink alcohol reportedly as well. Had 1 episode of seizure activity at home had an additional here in the department typical seizure activity patient has laceration to the lip. Imaging, labs and EKG were obtained. Patient had 1 dose of Ativan IV and was loaded with Keppra as we do not have zonisamide available at our facility. Patient was noted to be positive for cocaine on August 15, 2022. ETOH is negative at this time. Patient's has hyponatremia of 133, CO2 is 18 lactate initially was 7.1 suspect secondary seizure activity repeat is 1.3 after a L of fluids. Glucose is 108, AST is mildly elevated at 65 with alk-phos of 127, troponins negative with no arrhythmias in the department. Head CT chest x-ray not show any signs infection or other changes. Patient has been monitored in the department with no additional seizure activity recommended to continue his h ome medications but also avoid substances that will exacerbate his seizure disorder. At this time I would not adjust his medications but discussed with the patient if have any additional episodes would be appropriate to adjust at that time. Patient expresses understanding he has been ambulating in the department without issue. Discharge Plan Departure Patient Disposition: Home Clinical Impression: Seizure Instructions: DI for Seizure Disorder -- Adult Activity Restrictions/Additional Instructions: You have had a seizure today, please continue your home medications. The laceration on the inside of your lip should heal. I would recommend soft bland fluids for a couple days until healed. I do recommend that you avoid all alcohol as well as other substances as these can precipitate or cause seizure activity. Please return for Re current symptoms, altered mental status, severe chest pain, shortness of breath, new numbness, tingling or weakness, fevers or other new or concerning changes. Prescriptions: No Action lisinopril 10 mg Tablet 10 mg PO DAILY Qty: 30 0RF zonisamide 100 mg Capsule 100 mg PO BEDTIME 30 Days Qty: 30 0RF amlodipine 5 mg tablet 5 mg PO QAM Referrals: Miscellaneous,Doctor, MD [Primary Care Provider] - Stand Alone Forms: Patient Portal/API
[2022-08-27 18:21] LABS: Add Manual Diff / Slide Review NO; Basophils Absolute Auto 100 /uL (0-100); Basophils Percent Auto 0.8 % (0-2); Eosinophils Absolute Auto 100 /uL (0-450); Eosinophils Percent Auto 1.1 % (2-4); Hematocrit 40.8 % (41-53); Hemoglobin 13.7 g/dL (13.5-17.5); Lymphocytes Absolute Auto 2900 /uL (1100-4500); Lymphocytes Percent Auto 35.2 % (25-40); Mean Corpuscular HGB Conc 33.6 % (30-36); Mean Corpuscular Hemoglobin 33.9 PG (26-34); Mean Corpuscular Volume 100.9 fL (80-100); Monocytes Absolute Auto 1100 /uL (0-900); Monocytes Percent Auto 13.4 % (3-14); Neutrophils Absolute Auto 4100 /uL (1500-7000); Neutrophils Percent Auto 49.5 % (50-75); Platelet Count 349 X10^3/uL (150-400); Red Blood Cell Count 4.05 X10^6/uL (4.5-5.9); Red Cell Distribution Width 16.3 % (11.6-14.8); White Blood Cell Count 8.2 X10^3/uL (4.5-11.0)
--- NOTE | 2022-08-27 18:23 | DI.CT.S_ITS ---
PROCEDURE: CT HEAD/BRAIN WO CON INDICATIONS: seizure TECHNIQUE: Noncontrast 4.5 mm thick angled axial sections acquired from the foramen magnum to the vertex, with coronal and sagittal reformats. For radiation dose reduction, the following was used: automated exposure control, adjustment of mA and/or kV according to patient size. COMPARISON: [facility], CT, CT HEAD/BRAIN WO CON, 08/03/2022, 13:07. FINDINGS: Image quality: Excellent. CSF spaces: Basal cisterns are patent. No extra-axial fluid collections. Ventricles are normal in size and shape. Brain: No midline shift. No intracranial masses or hemorrhage. Saul-white matter interface is normal. Skull and face: Calvarium and visualized facial bones are intact, without suspicious lesions. Sinuses: Visualized sinuses and mastoids are clear. IMPRESSION: No CT evidence of acute intracranial abnormalities. Dictated by: Pb Bruce M.D. on 08/27/2022 at 19:47 Approved by: Pb Bruce M.D. on 08/27/2022 at 19:48
[2022-08-27 18:25] LABS: INR 0.9 (0.9-1.3); Prothrombin Time 10.4 SECONDS (10.1-12.7)
[2022-08-27 18:28] LABS: PTT Partial Thromboplastin Tim 26 SECONDS (26-36)
[2022-08-27] MEDS: SODIUM CHLORIDE 0.9% 1,000 ML 1000 ML IV ×2 (18:36→21:03)
[2022-08-27 19:18] LABS: Influenza A - CEPHEID Flu A NEGATIVE (NEGATIVE); Influenza B - CEPHEID Flu B NEGATIVE (NEGATIVE); Respiratory Syncytial Virus Negative (Negative)
[2022-08-27 19:22] LABS: COVID-19 CEPHEID 4-PLEX PCR Negative (Negative)
[2022-08-27 19:55] LABS: Alanine Aminotransferase 39 IU/L (<50); Alkaline Phosphatase 127 U/L (38-126); Aspartate Aminotransferase 65 IU/L (17-59); BUN Creatinine Ratio 6.5 (6-22); Bilirubin Total 0.4 mg/dL (0.2-1.3); Blood Urea Nitrogen 6 mg/dL (9-20); Calcium 8.9 mg/dL (8.4-10.2); Carbon Dioxide 18 mmol/L (22-32); Chloride 99 mmol/L (98-107); Creatine Kinase 128 U/L (55-170); Estimated Glomerular Filt Rate > 60 mL/min (>60); Glucose 108 mg/dL (70-100); HEMOLYSIS < 15 (0-50); Lipase 280 U/L (23-300); Magnesium 2.1 mg/dL (1.6-2.3); Potassium 4.1 mmol/L (3.4-5.1); Sodium 133 mmol/L (137-145); Total Protein 7.6 g/dL (6.3-8.2)
[2022-08-27 20:04] LABS: Lactate (Lactic Acid) 7.1 mmol/L (0.7-2.1)
[2022-08-27 20:06] LABS: Troponin I < 0.012 ng/mL (0.01-0.034)
[2022-08-27 20:10] LABS: CKMB % Relative Index 1.4 % (1.5-5.0); Creatine Kinase MB 1.75 ng/mL (<2.37)
[2022-08-27 21:00] LABS: Ethanol (ETOH) < 10 mg/dL
[2022-08-27 21:20] LABS: Reflexed Lactate in 2 Hours Y
[2022-08-27 21:38] LABS: Albumin 3.9 g/dL (3.5-5.0); Albumin Globulin Ratio 1.1 (1.0-2.8); Globulin 3.7 g/dL (1.7-4.1)
[2022-08-27 21:41] LABS: Lactate 2HR (Lactic Acid Rflx) 1.3 mmol/L (0.7-2.1)
--- NOTE | 2022-08-27 22:26 | PC.NURSE ---
Patient ambulated down hallway independently, occasional swaying but able to self correct, pt states his vision becomes blurry r/t sleeping in contacts.
== END 2022-08-27 23:14 | disposition home or self-care (01) ==
PROVIDERS: Emergency Medicine; Emergency Provider Emergency Medicine
DX: R56.9 Unspecified convulsions (principal)
CPT/HCPCS: 0241U; 36415; 70450; 71045; 80053; 80320; 82550; 82553; 83605; 83690; 83735; 84484; 85025; 85610; 85730; 93005; 93010; 96365; 96375; 99284; J1953; J2060

== ENCOUNTER 2022-09-04 20:34 | Emergency (ER) | payer OTHER, MEDICAID, SELFPAY ==
[2022-08-04 15:03] VITALS: BMI 26.4
[2022-09-04 20:42] VITALS: BP 116/80; PULSE 84; RESP 12; TEMP 36.4; O2SAT 100
--- NOTE | 2022-09-04 21:00 | PC.NURSE ---
Pt started mumbling to self and made movements to get out of bed. When nurse came in and asked questions, pt did not seem orientated to the questions being asked and swears often. The nurse asked questions to try and clam down and make the pt comfortable, but pt responded Sounds dumb as fuck.
--- NOTE | 2022-09-04 21:13 | ED.GENADULT ---
HPI - General Adult General Chief complaint: Toxicology Problem Stated complaint: ETOH Time Seen by Provider: 09/04/22 20:35 Source: patient and EMS Mode of arrival: EMS History of Present Illness HPI narrative: Patient is a 37-year-old male who was brought in by EMS for evaluation of alcohol use. Patient was unwilling/unable to provide much of the HPI. Per EMS they were called by the patient's friend who state that the patient was drinking this evening. The patient has a history of seizures and is on medications and has been told that he is not supposed to be drinking. Apparently the patient's friend that he was with new that he was not supposed to be drinking and got concerned about his seizure activity so contacted EMS. Patient has no specific complaints. He is somewhat unsure as to why he is here. Related Data Home Medications Medication Instructions Recorded Confirmed amlodipine 5 mg tablet 5 mg PO QAM 08/15/22 08/15/22 Previous Rx's Medication Instructions Recorded lisinopril 10 mg tablet 10 mg PO DAILY #30 tabs 09/26/20 Allergies Allergy/AdvReac Type Severity Reaction Status Date / Time No Known Drug Allergies Allergy Verified 08/03/22 11:48 Review of Systems Cardiovascular Comments: Denies chest pain Respiratory Comments: Denies shortness of breath Gastrointestinal Comments: Denies abdominal pain Patient History Medical History Hypertension Seizures Social History Smoking Status: Current every day smoker alcohol intake: current Smoking Status: Current every day smoker alcohol intake frequency: 3 or more drinks per day Alcohol type: hard liquor Substance Use Type: marijuana Exam Initial Vital Signs Initial Vital Signs: Vital Signs Temperature 97.6 F 09/04/22 20:42 Pulse Rate 84 09/04/22 20:42 Respiratory Rate 12 09/04/22 20:42 Blood Pressure 116/80 09/04/22 20:42 Pulse Oximetry 100 09/04/22 20:42 Oxygen Delivery Method 09/04/22 20:42 HENMT Head: normal to inspection and normocephalic Resp Effort & Inspection: normal respiratory effort Cardio Rate: regular rate Neuro General: patient alert, patient awake and moves all extremities Speech: speech normal Gait: normal gait Extrem General: normal to inspection Psych Appearance: disheveled Course Vital Signs Vital signs: Vital Signs - 8 hr 09/04/22 20:42 Temperature 97.6 F Pulse Rate 84 Respiratory Rate 12 Blood Pressure 116/80 Pulse Oximetry 100 Oxygen Delivery Method Room Air Medical Decision Making Differential Diagnosis Differential Diagnosis: Seizure, intoxication, trauma, and others Condition is:: Well Controlled Chronic Condition is having:: Moderate exacerbation (Alcoholism) Condition is at treatment goal?: Yes Medical Records Medical records reviewed: Yes I reviewed the patient's medical records. MDM Narrative Medical decision making narrative: Patient was somewhat unsure as to why he was here. It 1st he did seem somewhat confused. Spent some time with us and slept and then woke up and was clinically sober. He was ambulating. He knew his name he knew where he was he knows the date. He states that he would like to go home. Patient contacted a friend who came to pick him up in the emergency department. He is had no seizure-like activity. He was given return precautions and all her instructions. He expressed understanding. Discharge Plan Departure Patient Disposition: Home Clinical Impression: Alcoholic intoxication Instructions: DI for Alcohol Use Disorder Activity Restrictions/Additional Instructions: I recommend that you continue to take all of your medications as directed. I also recommend that you consider decreasing the amount of alcohol that you are drinking. No driving for the next 24 hours. Prescriptions: No Action lisinopril 10 mg Tablet 10 mg PO DAILY Qty: 30 0RF amlodipine 5 mg tablet 5 mg PO QAM Referrals: Miscellaneous,[facility] [Primary Care Provider] - Stand Alone Forms: Patient Portal/API
--- NOTE | 2022-09-04 21:17 | PC.NURSE ---
patient is confused and does not know why he is here. He was reoriented and understands why he is here and is reluctant to stay. His speech is mostly garbled and unintelligible but he is able to reorient himself and make his frustrations known.
--- NOTE | 2022-09-04 21:33 | PC.NURSE ---
Pt does not want to keep pulse ox on finger.
[2022-09-05 01:03] VITALS: BP 131/78; PULSE 118; RESP 14; O2SAT 95
== END 2022-09-05 01:06 | disposition home or self-care (01) ==
PROVIDERS: Emergency Provider Emergency Medicine
DX: F10.129 Alcohol abuse with intoxication, unspecified (principal)
CPT/HCPCS: 93005; 99283